=== PATIENT | male | born 1960 | race African-American/Black ===

== ENCOUNTER 2017-12-05 12:07 | Emergency (ER) | payer OTHER | END 2017-12-05 14:37 | disposition home or self-care (01) | LOC: ER 14:37 | DX: H61.23 Impacted cerumen, bilateral (principal); H66.93 Otitis media, unspecified, bilateral | CPT/HCPCS: 99283 ==

== ENCOUNTER 2020-12-20 10:33 | Inpatient (IN) | payer OTHER ==
[~2020-12-20] VITALS: Ht 182.9 cm; Wt 101.6 kg
[~2020-12-20 10:33] MED LIST: AMOX875T PO; TRAM-48 PO
[2020-12-20] MEDS ORDERED: IV NORMAL SALINE 1000ML BAG 1,000 ML IV ONE ×3 (11:15→13:30)
[2020-12-20 11:22] LABS: BASO % 0 % (0-3); EOS % 0 % (0-3); HEMATOCRIT 40.3 % (39.0-53.0); HEMOGLOBIN 12.9 g/dL (13.0-17.5); LYMPH # 0.3 x10^3/uL (1.0-4.8); LYMPH % 2 % (24-48); MEAN CORPUSCULAR HEMOGLOBIN 28 pg (25-35); MEAN CORPUSCULAR HGB CONC 32 g/dL (31-37); MEAN CORPUSCULAR VOLUME 86 fL (79-100); MONO # 0.2 x10^3/uL (0.0-1.1); MONO % 2 % (0-9); NEUT # 11.6 x10^3/uL (1.8-7.7); NEUT % 96 % (31-73); PLATELET COUNT 220 x10^3/uL (140-400); RED BLOOD COUNT 4.69 x10^6/uL (4.30-5.70); RED CELL DISTRIBUTION WIDTH 13.9 % (11.5-14.5); WHITE BLOOD COUNT 12.1 x10^3/uL (4.0-11.0)
--- NOTE | 2020-12-20 11:22 | PHYS DOC ---
Past Medical History Past Medical History: No Pertinent History Past Surgical History: No Surgical History Smoking Status: Never Smoker Alcohol Use: Rarely Drug Use: None General Adult EDM: Chief Complaint: ABDOMINAL PAIN HPI: HPI: Patient is a 60 year old male who presented to ER due to abdominal pain. Sym ptoms have been going on for a week, it got worse last night. Patient denies any fever. Patient said whenever he tries to urinate not much, now. Patient denies any cough or chest pain or any trouble breathing. Patient said he has no appetite, last time he tried to eat was yesterday. Review of Systems: Review of Systems: Constitutional: Denies fever or chills. [] Eyes: Denies change in visual acuity. [] HENT: Denies nasal congestion or sore throat. [] Respiratory: Denies cough or shortness of breath. [] Cardiovascular: Denies chest pain or edema. [] GI: Positive for abdominal pain, no nausea vomiting, no diarrhea. : Positive for dysuria and frequency, Musculoskeletal: Denies back pain or joint pain. [] Integument: Denies rash. [] Neurologic: Denies headache, focal weakness or sensory changes. [] Endocrine: Denies polyuria or polydipsia. [] Lymphatic: Denies swollen glands. [] Psychiatric: Denies depression or anxiety. [] Heart Score: Risk Factors: Risk Factors: DM, Current or recent (<one month) smoker, HTN, HLP, family histo ry of CAD, obesity. Risk Scores: Score 0 - 3: 2.5% MACE over next 6 weeks - Discharge Home Score 4 - 6: 20.3% MACE over next 6 weeks - Admit for Clinical Observation Score 7 - 10: 72.7% MACE over next 6 weeks - Early Invasive Strategies Current Medications: Current Medications Medications (Trade) Dose Ordered Sig/Papa Start Time Stop Time Status Last Admin Dose Admin Sodium Chloride 1,000 ml @ 1,000 mls/hr 1X ONCE 12/20/20 11:15 12/20/20 12:14 12/20/20 11:08 1,000 MLS/HR Allergies: Allergies: Allergies Coded Allergies Type Severity Reaction Last Updated Verified No Known Drug Allergies 12/05/17 No Physical Exam: PE: Constitutional: Well developed, well nourished, no acute distress, non-toxic appearance. [] HENT: Normocephalic, atraumatic, bilateral external ears normal, oropharynx michael [address], no oral exudates, nose normal. [] Eyes: PERRLA, EOMI, conjunctiva normal, no discharge. [] Neck: Normal range of motion, no tenderness, supple, no stridor. [] Cardiovascular:Heart rate regular rhythm, no murmur [] Lungs & Thorax: Bilateral breath sounds clear to auscultation [] Abdomen: Bowel sounds normal, soft, There is diffuse tenderness to palpation with guarding and rebound, no masses, no pulsatile masses. [] Skin: Warm, dry, no erythema, no rash. [] Back: No tenderness, no CVA tenderness. [] Extremities: No tenderness, no cyanosis, no clubbing, ROM intact, no edema. [] Neurologic: Alert and oriented X 3, normal motor function, normal sensory function, no focal deficits noted. [] Psychologic: Affect normal, judgement normal, mood normal. [] Current Patient Data: Labs: Laboratory Tests Test 12/20/20 10:40 12/20/20 10:46 White Blood Count 12.1 x10^3/uL Red Blood Count 4.69 x10^6/uL Hemoglobin 12.9 g/dL Hematocrit 40.3 % Mean Corpuscular Volume 86 fL Mean Corpuscular Hemoglobin 28 pg Mean Corpuscular Hemoglobin Concent 32 g/dL Red Cell Distribution Width 13.9 % Platelet Count 220 x10^3/uL Neutrophils (%) (Auto) 96 % Lymphocytes (%) (Auto) 2 % Monocytes (%) (Auto) 2 % Eosinophils (%) (Auto) 0 % Basophils (%) (Auto) 0 % Neutrophils # (Auto) 11.6 x10^3/uL Lymphocytes # (Auto) 0.3 x10^3/uL Monocytes # (Auto) 0.2 x10^3/uL Eosinophils # (Auto) 0.0 x10^3/uL Basophils # (Auto) 0.0 x10^3/uL Platelet Estimate Pending Sodium Level 139 mmol/L Potassium Level 3.6 mmol/L Chloride Level 102 mmol/L Carbon Dioxide Level 25 mmol/L Anion Gap 12 Blood Urea Nitrogen 12 mg/dL Creatinine 1.8 mg/dL Estimated GFR (Cockcroft-Gault) 47.0 BUN/Creatinine Ratio 7 Glucose Level 87 mg/dL Calcium Level 8.4 mg/dL Magnesium Level 1.5 mg/dL Total Bilirubin 1.6 mg/dL Aspartate Amino Transf (AST/SGOT) 30 U/L Alanine Aminotransferase (ALT/SGPT) 20 U/L Alkaline Phosphatase 69 U/L Total Protein 5.6 g/dL Albumin 2.8 g/dL Albumin/Globulin Ratio 1.0 Lipase 83 U/L Lactic Acid Level 2.8 mmol/L Current Medications Medications (Trade) Dose Ordered Sig/Papa Route PRN Reason Start Time Stop Time Status Last Admin Dose Admin Sodium Chloride 1,000 ml @ 1,000 mls/hr 1X ONCE IV 12/20/20 11:15 12/20/20 12:14 12/20/20 11:08 Fentanyl Citrate (Fentanyl 2ml Vial) 50 mcg 1X ONCE IVP 12/20/20 12:00 12/20/20 12:01 DC Piperacillin Sod/ Tazobactam Sod 3.375 gm/Sodium Chloride 50 ml @ 100 mls/hr 1X ONCE IV 12/20/20 12:00 12/20/20 12:29 Magnesium Sulfate 50 ml @ 25 mls/hr 1X ONCE IV 12/20/20 12:00 12/20/20 13:59 Vital Signs: Vital Signs Date Time Temp Pulse Resp B/P (MAP) Pulse Ox O2 Delivery O2 Flow Rate FiO2 12/20/20 10:56 98.3 81 24 90/50 (63) 97 Room Air 98.3 EKG: EKG: [] Radiology/Procedures: Radiology/Procedures: [facility] [address] [place] [address] IMAGING REPORT Signed PATIENT: VILMA PALMER ACCOUNT: [id number] : 1960 LOCATION: ER AGE: 60 SEX: M EXAM STATUS: REG ER ORD. PHYSICIAN: MILE FROST DO REASON: LOWER ABDOMINAL PAIN PROCEDURE: CT ABDOMEN PELVIS WO CONTRAST Exam: CT abdomen/pelvis without intravenous contrast Indication: Lower abdominal pain Comparison: None Technique: Helical CT imaging performed of the abdomen and pelvis without the use of intravenous contrast. Sagittal and coronal reformats were obtained. One or more of the following individualized dose reduction techniques were utilized for this examination: 1. Automated exposure control 2. Adjustment of the mA and/or kV according to patient size 3. Use of iterative reconstruction technique. Findings: Inherently limited evaluation without intravenous contrast. Lower chest: Lung bases are clear. The heart is normal in size. Liver: Normal. Gallbladder/Biliary Tree: Normal. Pancreas: Normal. Spleen: Normal. Adrenal Glands: Normal. Kidneys/Ureters/Bladder: Kidneys and this is portion ureters are normal. Distal right ureter is obscured. Bladder is normal. Reproductive Organs: Prostate gland is enlarged. Stomach, small bowel, and colon: There is a elongated masslike structure in the right lower quadrant extending into the pelvis, measuring at least 6.7 x 4.3 x 5.3 cm. There is extrinsic the cecum is in the expected location of the appendix, which is not discretely visualized. The masslike structure has soft tissue density and surrounding fat stranding. At the distal aspect of the structure there is a lower density collection measuring 3.9 x 1.6 cm that may be fluid collection between a small vesicles and rectum. Wall thickening in the sigmoid colon and rectum is likely reactive. The rest of the colon is normal. Small bowel is normal. Stomach is unremarkable. Vasculature: Abdominal aorta is normal in caliber. Mild calcified atherosclerosis. Lymph Nodes: There are enlarged ileocolic lymph nodes measuring up to 1 cm short axis. Enlarged right external iliac chain lymph nodes measuring up to 9 mm short axis. Peritoneum and retroperitoneum: No free air. Bones: There is moderate to severe disc space narrowing at L5-S1. Severe right and moderate left hip osteoarthrosis. Impression: Elongated masslike structure in the right lower quadrant with surrounding fat stranding suspicious for ruptured appendicitis with phlegmon or complex abscess. Differential diagnosis would be an appendiceal mass. There is an adjacent 4 cm lower density collection between the seminal vesicles and rectum that may be continuous with this or a separate fluid collection. CT with IV and oral contrast may be useful to further evaluate if clinically indicated. Results discussed by Dr. Jarrett with Dr. Frost at 1:00 PM on 12/20/2020. Electronically signed by: Viki Jarrett MD (12/20/2020 1:26 PM) [id number] DICTATED and SIGNED BY: VIKI JARRETT MD DATE: 12/20/20 [id number] 0 Course & Med Decision Making: Course & Med Decision Making Pertinent Labs and Imaging studies reviewed. (See chart for details) Patient is a 60-year-old male who was evaluated in the ER due to 1 week history of lower abdominal pain, his lab work, CT scan his abdomen pelvic consistent with perforated acute appendicitis patient was given IV fluid in the ER and IV antibiotics. Discussed with the general surgeon on-call Dr. 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 Departure Departure Impression: Primary Impression: Perforated appendicitis Additional Impression: Hypomagnesemia Disposition: ADMITTED INPT THIS HOSP Admitting Physician: PARESH () Condition: STABLE Referrals: NO PCP (PCP) MILE FROST DO Dec 20, 2020 11:22
[2020-12-20 11:37] LABS: CALCIUM 8.4 mg/dL (8.5-10.1); CREATININE 1.8 mg/dL (0.7-1.3); POTASSIUM 3.6 mmol/L (3.5-5.1)
[2020-12-20 11:51] LABS: ALBUMIN 2.8 g/dL (3.4-5.0); MAGNESIUM 1.5 mg/dL (1.8-2.4); TOTAL BILIRUBIN 1.6 mg/dL (0.2-1.0); TOTAL PROTEIN 5.6 g/dL (6.4-8.2)
[2020-12-20] MEDS ORDERED: MAGNESIUM SULFATE 2GM 50 ML IV ONE (12:00)
[2020-12-20] MEDS ORDERED: PIPERACILLIN/TAZOBACTAM 3.375 GM in IV NORMAL SALINE 50ML 50 ML IV ONE (12:00)
[2020-12-20] MEDS ORDERED: fentaNYL PF VIAL 100 MCG/2 ML VIAL IVP ONE ×2 (12:00→13:45)
[2020-12-20 12:16] LABS: BILIRUBIN,URINE NEGATIVE (NEG); CLARITY,URINE CLEAR; COLOR,URINE YELLOW; NITRITE,URINE NEGATIVE (NEG); PH,URINE 8.5 (<5.0-8.0); PROTEIN,URINE NEGATIVE (NEG-TRACE)
[2020-12-20 12:23] LABS: % BANDS 15 % (0-9); % LYMPHS 5 % (24-48); % SEGS 80 % (35-66); PLT ESTIMATE ADEQUATE (ADEQUATE)
[2020-12-20 12:28] LABS: BACTERIA,URINE FEW /HPF (0-FEW); RBC,URINE OCC /HPF (0-2)
[2020-12-20] MEDS ORDERED: fentaNYL PF VIAL 100 MCG/2 ML VIAL IV PRN (13:15)
[2020-12-20] MEDS ORDERED: ONDANSETRON PF 4 MG/2 ML VIAL. IV PRN ×2 (13:15→13:45)
[2020-12-20] MEDS: IV NORMAL SALINE 1000ML BAG 1,000 ML IV SCH ×2 (13:15→23:23)
--- NOTE | 2020-12-20 13:28 | RAD ---
Exam: CT abdomen/pelvis without intravenous contrast Indication: Lower abdominal pain Comparison: None Technique: Helical CT imaging performed of the abdomen and pelvis without the use of intravenous cont rast. Sagittal and coronal reformats were obtained. One or more of the following individualized dose reduction techniques were utilized for this examinat ion: 1. Automated exposure control 2. Adjustment of the mA and/or kV according to patient size 3. Use of iterative reconstruction technique. Findings: Inherently limited evaluation without intravenous contrast. Lower chest: Lung bases are clear. The heart is normal in size. Liver: Normal. Gallbladder/Biliary Tree: Normal. Pancreas: Normal. Spleen: Normal. Adrenal Glands: Normal. Kidneys/Ureters/Bladder: Kidneys and this is portion ureters are normal. Distal right ureter is obscu red. Bladder is normal. Reproductive Organs: Prostate gland is enlarged. Stomach, small bowel, and colon: There is a elongated masslike structure in the right lower quadrant extending into the pelvis, measuring at least 6.7 x 4.3 x 5.3 cm. There is extrinsic the cecum is in the expected location of the appendix, which is not discretely visualized. The masslike structure has soft tissue density and surrounding fat stranding. At the distal aspect of the structure there is a lower density collection measuring 3.9 x 1.6 cm that may be fluid collection between a small vesicles and rectum. Wall thickening in the sigmoid colon and rectum is likely reactive. The rest of the colo n is normal. Small bowel is normal. Stomach is unremarkable. Vasculature: Abdominal aorta is normal in caliber. Mild calcified atherosclerosis. Lymph Nodes: There are enlarged ileocolic lymph nodes measuring up to 1 cm short axis. Enlarged right external iliac chain lymph nodes measuring up to 9 mm short axis. Peritoneum and retroperitoneum: No free air. Bones: There is moderate to severe disc space narrowing at L5-S1. Severe right and moderate left hip osteoarthrosis. Impression: Elongated masslike structure in the right lower quadrant with surrounding fat stranding suspicious fo r ruptured appendicitis with phlegmon or complex abscess. Differential diagnosis would be an appendic eal mass. There is an adjacent 4 cm lower density collection between the seminal vesicles and rectum that may be continuous with this or a separate fluid collection. CT with IV and oral contrast may be useful to further evaluate if clinically indicated. Results discussed by Dr. Jarrett with Dr. Jain at 1:00 PM on 12/20/2020. Electronically signed by: Viki Jarrett MD (12/20/2020 1:26 PM) [id number]
[2020-12-20] MEDS ORDERED: BISACODYL 10 MG SUPP.RECT. PR PRN (13:45)
[2020-12-20] MEDS ORDERED: PIP/TAZO PER PHARMACY MC PRN (13:45)
--- NOTE | 2020-12-20 13:50 | PDOC1 ---
History and Physical Date of Admission Date of Admission DATE: 12/20/20 TIME: 13:45 Identification/Chief Complaint Chief Complaint Abdominal pain Source Source: Patient History of Present Illness History of Present Illness Mr Rosales is a 60 year old male w/ PMHx HLD and recent elevated PSA of 13 who presented to ER due to intractable abdominal pain for the past 24 hours. He and his brother, maria, note that his symptoms have been going on for a week intermittently and 5 days ago he felt his pain suddenly improve and then intermittently with cramping pain with eating for the past 3 days prior to presentation, but on 12/19/2020 it got significantly worse overnight and became constant, sharp in his RLQ with associated chills without fever. He is thirsty but has not been able to eat or drink without nausea, now has no appetite. He notes his urine output has dropped the last few days, but thought it was his prostate as a few months ago he had his PSA elevated. Patient denies any cough or chest pain or any trouble breathing. In ED noted to be tachycardic 100 bpm and febrile to 100.[address] abdomen/pelvis elongated masslike structure in the right lower quadrant with surrounding fat stranding suspicious for ruptured appendicitis with phlegmon or complex abscess. WBC 12.1, Hb 12.9, platelets 220, Na 139, K 3.6, BUN 12, Cr 1.8, glucose 87, Mg 1.5, lactic acid 2.8, Bilirubin 1.6, Albumin 2.8. Admitted for further care. Past Medical History Cardiovascular: Hyperlipidemia Renal/: Other (PSA 13) Past Surgical History Past Surgical History: No pertinent history Family History Family History: High Cholestrol Social History Smoke: No ALCOHOL: rare Drugs: None Current Problem List Problem List Problems Medical Problems: (1) Hypomagnesemia Status: Acute (2) Perforated appendicitis Status: Acute Current Medications Current Medications Current Medications Sodium Chloride 1,000 ml @ 1,000 mls/hr 1X ONCE IV Last administered on 12/20/20at 11:08; Start 12/20/20 at 11:15; Stop 12/20/20 at 12:14; Status DC Fentanyl Citrate (Fentanyl 2ml Vial) 50 mcg 1X ONCE IVP Last administered on 12/20/20at 12:31; Start 12/20/20 at 12:00; Stop 12/20/20 at 12:01; Status DC Piperacillin Sod/ Tazobactam Sod 3.375 gm/Sodium Chloride 50 ml @ 100 mls/hr 1X ONCE IV Last administered on 12/20/20at 12:15; Start 12/20/20 at 12:00; Stop 12/20/20 at 12:29; Status DC Magnesium Sulfate 50 ml @ 25 mls/hr 1X ONCE IV Last administered on 12/20/20at 12:16; Start 12/20/20 at 12:00; Stop 12/20/20 at 13:59 Sodium Chloride 1,000 ml @ 1,000 mls/hr 1X ONCE IV Last administered on 12/20/20at 13:16; Start 12/20/20 at 13:15; Stop 12/20/20 at 14:14 Fentanyl Citrate (Fentanyl 2ml Vial) 75 mcg 1X ONCE IVP Last administered on 12/20/20at 13:26; Start 12/20/20 at 13:45; Stop 12/20/20 at 13:46 Ondansetron HCl (Zofran) 4 mg PRN Q8HRS PRN IV NAUSEA/VOMITING; Start 12/20/20 at 13:15; Stop 12/21/20 at 13:14 Fentanyl Citrate (Fentanyl 2ml Vial) 50 mcg PRN Q1HR PRN IV PAIN; Start 12/20/20 at 13:15; Stop 12/21/20 at 13:14 Sodium Chloride 1,000 ml @ 100 mls/hr Q10H IV Last administered on 12/20/20at 13:15; Start 12/20/20 at 13:15; Stop 12/21/20 at 13:14 Sodium Chloride 1,000 ml @ 1,000 mls/hr 1X ONCE IV ; Start 12/20/20 at 13:30; Stop 12/20/20 at 14:29 Piperacillin Sod/ Tazobactam Sod (Zosyn Per Pharmacy) 1 each PRN DAILY PRN MC SEE COMMENTS; Start 12/20/20 at 13:45; Status UNV Active Scripts Active Ultram (Tramadol Hcl) 50 Mg Tablet 1 Tab PO Q6HRS Amoxicillin 875 Mg Tablet 1 Tab PO BID Allergies Allergies: Coded Allergies: No Known Drug Allergies (Unverified , 12/05/17) ROS Review of System 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 [facility] General: YES: Chills, Night Sweats, Fatigue, Malaise, Appetite; No: Other PSYCHOLOGICAL ROS: No: Anxiety, Behavioral Disorder, Concentration difficultie, Decreased libido, Depression, Disorientation, Hallucinations, Hostility, Irritablity, Memory difficulties, Mood Swings, Obsessive thoughts, Physical abuse, Sexual abuse, Sleep disturbances, Suicidal ideation, Other Eyes: No Blurry vision, No Decreased vision, No Double vision, No Dry eyes, No Excessive tearing, No Eye Pain, No Itchy Eyes, No Loss of vision, No Photophobia, No Scotomata, No Uses contacts, No Uses glasses, No Other HEENT: No: Heacaches, Visual Changes, Hearing change, Nasal congestion, Nasal discharge, Oral lesions, Sinus pain, Sore Throat, Epistaxis, Sneezing, Snoring, Tinnitus, Vertigo, Vocal changes, Other ALLERGY AND IMMUNOLOGY: No: Hives, Insect Bite Sensitivity, Itchy/Watery Eyes, Nasal Congestion, Post Nasal Drip, Seasonal Allergies, Other Hematological and Lymphatic: No: Bleeding Problems, Blood Clots, Blood Tra nsfusions, Brusing, Night Sweats, Pallor, Swollen Lymph Nodes, Other ENDOCRINE: No: Breast Changes, Galactorrhea, Hair Pattern Changes, Hot Flashes, Malaise/lethargy, Mood Swings, Palpitations, Polydipsia/polyuria, Skin Changes, Temperature Intolerance, Unexpected Weight Changes, Other Breast: No New/Changing Breast Lumps, No Nipple changes, No Nipple discharge, No Other Respiratory: No: Cough, Hemoptysis, Orthopnea, Pleuritic Pain, Shortness of breath, SOB with excertion, Sputum Changes, Stridor, Tachypnea, Wheezing, Other Cardiovascular: No Chest Pain, No Palpitations, No Orthopnea, No Paroxysmal Noc. Dyspnea, No Edema, No Lt Headedness, No Other Gastrointestinal: Yes Nausea, Yes Vomiting, Yes Abdominal Pain; No Diarrhea, No Constipation, No Melena, No Hematochezia, No Other Genitourinary: No Dysuria, No Frequency, No Incontinence, No Hematuria, No Retention, No Discharge, No Urgency, No Pain, No Flank Pain, No Other, No , No , No , No , No , No , No Musculoskeletal: No Gait Disturbance, No Joint Pain, No Joint Stiffness, No Joint Swelling, No Muscle Pain, No Muscular Weakness, No Pain In:, No Swelling In:, No Other Neurological: No Behavorial Changes, No Bowel/Bladder ControlChng, No Confusion, No Dizziness, No Gait Disturbance, No Headaches, No Impaired Coord/balance, No Memory Loss, No Numbness/Tingling, No Seizures, No Speech Problems, No Tremors, No Visual Changes, No Weakness, No Other Skin: No Dry Skin, No Eczema, No Hair Changes, No Lumps, No Mole Changes, No Mottling, No Nail Changes, No Pruritus, No Rash, No Skin Lesion Changes, No Other, No Acne Physical Exam General: Alert, Oriented X3, Cooperative, severe distress HEENT: Atraumatic, PERRLA, EOMI, Mucous membr. moist/pink Lungs: Clear to auscultation, Normal air movement Heart: S1S2, RRR, no thrills, no rubs, no gallops, no murmurs Abdomen: Normal bowel sounds, No hepatosplenomegaly, No masses, Other (Diffusely tender) Male Genitals Exam: normal genitalia, high riding prostate Rectal Exam: other (Enlarged prostate) Extremities: No clubbing, No cyanosis, No edema, Normal pulses, No tenderness/swelling Skin: No rashes, No breakdown, No significant lesion Neuro: Normal gait, Normal speech, Strength at 5/5 X4 ext, Normal tone, Sensation intact, Cranial nerves 3-12 NL, Reflexes 2+ Psych/Mental Status: Mental status NL, Mood NL Vitals Vitals Vital Signs Date Time Temp Pulse Resp B/P (MAP) Pulse Ox O2 Delivery O2 Flow Rate FiO2 12/20/20 12:28 89 108/64 (79) 95 Room Air 12/20/20 10:56 98.3 24 98.3 Labs Labs Laboratory Tests Test 12/20/20 10:40 12/20/20 10:46 12/20/20 12:05 12/20/20 13:05 White Blood Count 12.1 x10^3/uL (4.0-11.0) Red Blood Count 4.69 x10^6/uL (4.30-5.70) Hemoglobin 12.9 g/dL (13.0-17.5) Hematocrit 40.3 % (39.0-53.0) Mean Corpuscular Volume 86 fL (79-100) Mean Corpuscular Hemoglobin 28 pg (25-35) Mean Corpuscular Hemoglobin Concent 32 g/dL (31-37) Red Cell Distribution Width 13.9 % (11.5-14.5) Platelet Count 220 x10^3/uL (140-400) Neutrophils (%) (Auto) 96 % (31-73) Lymphocytes (%) (Auto) 2 % (24-48) Monocytes (%) (Auto) 2 % (0-9) Eosinophils (%) (Auto) 0 % (0-3) Basophils (%) (Auto) 0 % (0-3) Neutrophils # (Auto) 11.6 x10^3/uL (1.8-7.7) Lymphocytes # (Auto) 0.3 x10^3/uL (1.0-4.8) Monocytes # (Auto) 0.2 x10^3/uL (0.0-1.1) Eosinophils # (Auto) 0.0 x10^3/uL (0.0-0.7) Basophils # (Auto) 0.0 x10^3/uL (0.0-0.2) Segmented Neutrophils % 80 % (35-66) Band Neutrophils % 15 % (0-9) Lymphocytes % 5 % (24-48) Platelet Estimate Adequate (ADEQUATE) Giant Platelets Occ Sodium Level 139 mmol/L (136-145) Potassium Level 3.6 mmol/L (3.5-5.1) Chloride Level 102 mmol/L (98-107) Carbon Dioxide Level 25 mmol/L (21-32) Anion Gap 12 (6-14) Blood Urea Nitrogen 12 mg/dL (8-26) Creatinine 1.8 mg/dL (0.7-1.3) Estimated GFR (Cockcroft-Gault) 47.0 BUN/Creatinine Ratio 7 (6-20) Glucose Level 87 mg/dL (70-99) Calcium Level 8.4 mg/dL (8.5-10.1) Magnesium Level 1.5 mg/dL (1.8-2.4) Total Bilirubin 1.6 mg/dL (0.2-1.0) Aspartate Amino Transf (AST/SGOT) 30 U/L (15-37) Alanine Aminotransferase (ALT/SGPT) 20 U/L (16-63) Alkaline Phosphatase 69 U/L (46-116) Total Protein 5.6 g/dL (6.4-8.2) Albumin 2.8 g/dL (3.4-5.0) Albumin/Globulin Ratio 1.0 (1.0-1.7) Lipase 83 U/L (73-393) Lactic Acid Level 2.8 mmol/L (0.4-2.0) Urine Collection Type Unknown Urine Color Yellow Urine Clarity Clear Urine pH 8.5 (<5.0-8.0) Urine Specific [place] 1.015 (1.000-1.030) Urine Protein Negative mg/dL (NEG-TRACE) Urine Glucose (UA) Negative mg/dL (NEG) Urine Ketones (Stick) Trace mg/dL (NEG) Urine Blood Negative (NEG) Urine Nitrite Negative (NEG) Urine Bilirubin Negative (NEG) Urine Urobilinogen Dipstick 1.0 mg/dL (0.2 mg/dL) Urine Leukocyte Esterase Negative (NEG) Urine RBC Occ /HPF (0-2) Urine WBC 1-4 /HPF (0-4) Urine Squamous Epithelial Cells Occ /LPF Urine Bacteria Few /HPF (0-FEW) Urine Mucus Slight /LPF SARS-CoV-2 Antigen (Rapid) Negative (NEGATIVE) Laboratory Tests Test 12/20/20 10:40 12/20/20 10:46 12/20/20 12:05 12/20/20 13:05 White Blood Count 12.1 x10^3/uL (4.0-11.0) Red Blood Count 4.69 x10^6/uL (4.30-5.70) Hemoglobin 12.9 g/dL (13.0-17.5) Hematocrit 40.3 % (39.0-53.0) Mean Corpuscular Volume 86 fL (79-100) Mean Corpuscular Hemoglobin 28 pg (25-35) Mean Corpuscular Hemoglobin Concent 32 g/dL (31-37) Red Cell Distribution Width 13.9 % (11.5-14.5) Platelet Count 220 x10^3/uL (140-400) Neutrophils (%) (Auto) 96 % (31-73) Lymphocytes (%) (Auto) 2 % (24-48) Monocytes (%) (Auto) 2 % (0-9) Eosinophils (%) (Auto) 0 % (0-3) Basophils (%) (Auto) 0 % (0-3) Neutrophils # (Auto) 11.6 x10^3/uL (1.8-7.7) Lymphocytes # (Auto) 0.3 x10^3/uL (1.0-4.8) Monocytes # (Auto) 0.2 x10^3/uL (0.0-1.1) Eosinophils # (Auto) 0.0 x10^3/uL (0.0-0.7) Basophils # (Auto) 0.0 x10^3/uL (0.0-0.2) Segmented Neutrophils % 80 % (35-66) Band Neutrophils % 15 % (0-9) Lymphocytes % 5 % (24-48) Platelet Estimate Adequate (ADEQUATE) Giant Platelets Occ Sodium Level 139 mmol/L (136-145) Potassium Level 3.6 mmol/L (3.5-5.1) Chloride Level 102 mmol/L (98-107) Carbon Dioxide Level 25 mmol/L (21-32) Anion Gap 12 (6-14) Blood Urea Nitrogen 12 mg/dL (8-26) Creatinine 1.8 mg/dL (0.7-1.3) Estimated GFR (Cockcroft-Gault) 47.0 BUN/Creatinine Ratio 7 (6-20) Glucose Level 87 mg/dL (70-99) Calcium Level 8.4 mg/dL (8.5-10.1) Magnesium Level 1.5 mg/dL (1.8-2.4) Total Bilirubin 1.6 mg/dL (0.2-1.0) Aspartate Amino Transf (AST/SGOT) 30 U/L (15-37) Alanine Aminotransferase (ALT/SGPT) 20 U/L (16-63) Alkaline Phosphatase 69 U/L (46-116) Total Protein 5.6 g/dL (6.4-8.2) Albumin 2.8 g/dL (3.4-5.0) Albumin/Globulin Ratio 1.0 (1.0-1.7) Lipase 83 U/L (73-393) Lactic Acid Level 2.8 mmol/L (0.4-2.0) Urine Collection Type Unknown Urine Color Yellow Urine Clarity Clear Urine pH 8.5 (<5.0-8.0) Urine Specific [place] 1.015 (1.000-1.030) Urine Protein Negative mg/dL (NEG-TRACE) Urine Glucose (UA) Negative mg/dL (NEG) Urine Ketones (Stick) Trace mg/dL (NEG) Urine Blood Negative (NEG) Urine Nitrite Negative (NEG) Urine Bilirubin Negative (NEG) Urine Urobilinogen Dipstick 1.0 mg/dL (0.2 mg/dL) Urine Leukocyte Esterase Negative (NEG) Urine RBC Occ /HPF (0-2) Urine WBC 1-4 /HPF (0-4) Urine Squamous Epithelial Cells Occ /LPF Urine Bacteria Few /HPF (0-FEW) Urine Mucus Slight /LPF SARS-CoV-2 Antigen (Rapid) Negative (NEGATIVE) Images Images CT Abdomen/pelvis wo contrast: Inherently limited evaluation without intravenous contrast. Lower chest: Lung bases are clear. The heart is normal in size. Liver: Normal. Gallbladder/Biliary Tree: Normal. Pancreas: Normal. Spleen: Normal. Adrenal Glands: Normal. Kidneys/Ureters/Bladder: Kidneys and this is portion ureters are normal. Distal right ureter is obscured. Bladder is normal. Reproductive Organs: Prostate gland is enlarged. Stomach, small bowel, and colon: There is a elongated masslike structure in the right lower quadrant extending into the pelvis, measuring at least 6.7 x 4.3 x 5.3 cm. There is extrinsic the cecum is in the expected location of the appendix, which is not discretely visualized. The masslike structure has soft tissue density and surrounding fat stranding. At the distal aspect of the structure there is a lower density collection measuring 3.9 x 1.6 cm that may be fluid collection between a small vesicles and rectum. Wall thickening in the si gmoid colon and rectum is likely reactive. The rest of the colon is normal. Small bowel is normal. Stomach is unremarkable. Vasculature: Abdominal aorta is normal in caliber. Mild calcified atherosclerosis. Lymph Nodes: There are enlarged ileocolic lymph nodes measuring up to 1 cm short axis. Enlarged right external iliac chain lymph nodes measuring up to 9 mm short axis. Peritoneum and retroperitoneum: No free air. Bones: There is moderate to severe disc space narrowing at L5-S1. Severe right and moderate left hip osteoarthrosis. Impression: Elongated masslike structure in the right lower quadrant with surrounding fat stranding suspicious for ruptured appendicitis with phlegmon or complex abscess. Differential diagnosis would be an appendiceal mass. There is an adjacent 4 cm lower density collection between the seminal vesicles and rectum that may be continuous with this or a separate fluid collection. CT with IV and oral contrast may be useful to further evaluate if clinically indicated. VTE Prophylaxis Ordered VTE Prophylaxis Devices: No VTE Pharmacological Prophylaxi: Yes Assessment/Plan Assessment/Plan A/P: Perforated appendicitis - abscess presence unclear, will f/u renal function to obtain CT with contrast vs US. NPO, IV pain control. Zosyn q6hrs. Surgery consulted Intractable abdominal pain - due to above, IV morphine, prn IV fentanyl Sepsis - due to perforated diverticulitis - given empiric IVF and zosyn ALYSIA - likely vasomotor nephropathy given poor PO intake, will give IVF resuscitation, f/u renal function on labs Pelvic fluid collection - between seminal vesicles and rectum, possibly abscess, will repeat labs and try CT with contrast if renal function improves Elevated PSA - noted outpatient Bilateral hip osteoarthrosis - noted on CT Hypomagnesemia - Replace IV Elevated bilirubin - will monitor Moderate protein calorie malnutrition - will start on IV nutrition FEN - NPO, NSS, procalamine PPX - heparin FULL CODE Dispo - inpatient for above, negative rapid covid19, given perforation likely would recommend bowel rest and IV antibiotics prior to planning any surgical intervention, will defer to surgery for further medical decision making Justifications for Admission Other Justification NEEMA LARSON MD Dec 20, 2020 13:50
--- NOTE | 2020-12-20 14:23 | PDOC2 ---
CONSULT Date of Consult Date of Consult DATE: 12/20/20 TIME: 14:20 History of Present Illness Reason for Visit: The patient is a 60 year old male who reported to the ER with abdominal pain. He first noticed some problems about a week ago with pain in the low mid abdomen. He states that improved, but then last night he developed severe pain. The pain is across the low abdomen with associated nausea. He reports dysuria as well. Past Medical History Past Medical History high cholesterol Past Surgical History Past Surgical History denies Social History No ALCOHOL: none Drugs: None Current Problem List Problem List Problems Medical Problems: (1) Hypomagnesemia Status: Acute (2) Perforated appendicitis Status: Acute Current Medications Current Medications Current Medications Sodium Chloride 1,000 ml @ 1,000 mls/hr 1X ONCE IV Last administered on 12/20/20at 11:08; Start 12/20/20 at 11:15; Stop 12/20/20 at 12:14; Status DC Fentanyl Citrate (Fentanyl 2ml Vial) 50 mcg 1X ONCE IVP Last administered on 12/20/20at 12:31; Start 12/20/20 at 12:00; Stop 12/20/20 at 12:01; Status DC Piperacillin Sod/ Tazobactam Sod 3.375 gm/Sodium Chloride 50 ml @ 100 mls/hr 1X ONCE IV Last administered on 12/20/20at 12:15; Start 12/20/20 at 12:00; Stop 12/20/20 at 12:29; Status DC Magnesium Sulfate 50 ml @ 25 mls/hr 1X ONCE IV Last administered on 12/20/20at 12:16; Start 12/20/20 at 12:00; Stop 12/20/20 at 13:59; Status DC Sodium Chloride 1,000 ml @ 1,000 mls/hr 1X ONCE IV Last administered on 12/20/20at 13:16; Start 12/20/20 at 13:15; Stop 12/20/20 at 14:14; Status DC Fentanyl Citrate (Fentanyl 2ml Vial) 75 mcg 1X ONCE IVP Last administered on 12/20/20at 13:26; Start 12/20/20 at 13:45; Stop 12/20/20 at 13:46; Status DC Ondansetron HCl (Zofran) 4 mg PRN Q8HRS PRN IV NAUSEA/VOMITING; Start 12/20/20 at 13:15; Stop 12/20/20 at 13:46; Status DC Fentanyl Citrate (Fentanyl 2ml Vial) 50 mcg PRN Q1HR PRN IV PAIN; Start 12/20/20 at 13:15; Stop 12/21/20 at 13:14 Sodium Chloride 1,000 ml @ 100 mls/hr Q10H IV Last administered on 12/20/20at 13:15; Start 12/20/20 at 13:15; Stop 12/21/20 at 13:14 Sodium Chloride 1,000 ml @ 1,000 mls/hr 1X ONCE IV Last administered on 12/20/20at 13:30; Start 12/20/20 at 13:30; Stop 12/20/20 at 14:29 Piperacillin Sod/ Tazobactam Sod (Zosyn Per Pharmacy) 1 each PRN DAILY PRN MC SEE COMMENTS; Start 12/20/20 at 13:45 Ondansetron HCl (Zofran) 4 mg PRN Q4HRS PRN IV NAUSEA/VOMITING; Start 12/20/20 at 13:45 Acetaminophen (Tylenol Supp) 650 mg PRN Q4HRS PRN AR TEMP OVER 100.4F OR MILD PAIN; Start 12/20/20 at 13:45 Olanzapine (ZyPREXA ZYDIS) 5 mg PRN BID PRN PO ANXIETY / AGITATION; Start 12/20/20 at 13:45 Bisacodyl (Dulcolax Supp) 10 mg PRN DAILY PRN AR CONSTIPATION; Start 12/20/20 at 13:45 Heparin Sodium (Porcine) (Heparin Sodium) 5,000 unit BID ONCE SQ ; Start 12/20/20 at 21:00; Stop 12/20/20 at 21:01 Morphine Sulfate (Morphine Sulfate) 4 mg PRN Q3HRS PRN IV SEVERE PAIN 7-10; Start 12/20/20 at 13:45 Piperacillin Sod/ Tazobactam Sod 3.375 gm/Sodium Chloride 50 ml @ 100 mls/hr Q6HRS IV ; Start 12/20/20 at 18:00 Active Scripts Active Ultram (Tramadol Hcl) 50 Mg Tablet 1 Tab PO Q6HRS Amoxicillin 875 Mg Tablet 1 Tab PO BID Allergies Allergies: Coded Allergies: No Known Drug Allergies (Unverified , 12/05/17) ROS General: No: Chills, Night Sweats, Fatigue, Malaise, Appetite, Other PSYCHOLOGICAL ROS: No: Anxiety, Behavioral Disorder, Concentration difficultie, Decreased libido, Depression, Disorientation, Hallucinations, Hostility, Irritablity, Memory difficulties, Mood Swings, Obsessive thoughts, Physical abuse, Sexual abuse, Sleep disturbances, Suicidal ideation, Other Eyes: No Blurry vision, No Decreased vision, No Double vision, No Dry eyes, No Excessive tearing, No Eye Pain, No Itchy Eyes, No Loss of vision, No Photophobia, No Scotomata, No Uses contacts, No Uses glasses, No Other HEENT: No: Heacaches, Visual Changes, Hearing change, Nasal congestion, Nasal discharge, Oral lesions, Sinus pain, Sore Throat, Epistaxis, Sneezing, Snoring, Tinnitus, Vertigo, Vocal changes, Other ALLERGY AND IMMUNOLOGY: No: Hives, Insect Bite Sensitivity, Itchy/Watery Eyes, Nasal Congestion, Post Nasal Drip, Seasonal Allergies, Other Hematological and Lymphatic: No: Bleeding Problems, Blood Clots, Blood T ransfusions, Brusing, Night Sweats, Pallor, Swollen Lymph Nodes, Other ENDOCRINE: No: Breast Changes, Galactorrhea, Hair Pattern Changes, Hot Flashes, Malaise/lethargy, Mood Swings, Palpitations, Polydipsia/polyuria, Skin Changes, Temperature Intolerance, Unexpected Weight Changes, Other Breast: No New/Changing Breast Lumps, No Nipple changes, No Nipple discharge, No Other Respiratory: No: Cough, Hemoptysis, Orthopnea, Pleuritic Pain, Shortness of breath, SOB with excertion, Sputum Changes, Stridor, Tachypnea, Wheezing, Other Gastrointestinal: Yes Nausea, Yes Abdominal Pain Genitourinary: YES Dysuria Musculoskeletal: No Gait Disturbance, No Joint Pain, No Joint Stiffness, No Joint Swelling, No Muscle Pain, No Muscular Weakness, No Pain In:, No Swelling In:, No Other Neurological: No Behavorial Changes, No Bowel/Bladder ControlChng, No Co nfusion, No Dizziness, No Gait Disturbance, No Headaches, No Impaired Coord/balance, No Memory Loss, No Numbness/Tingling, No Seizures, No Speech Problems, No Tremors, No Visual Changes, No Weakness, No Other Skin: No Dry Skin, No Eczema, No Hair Changes, No Lumps, No Mole Changes, No Mottling, No Nail Changes, No Pruritus, No Rash, No Skin Lesion Changes, No Other, No Acne Physical Exam General: Alert, Oriented X3, mild distress HEENT: Atraumatic Lungs: Clear to auscultation Heart: Regular rate Abdomen: Soft (tender low abdomen with guarding) Extremities: No clubbing, No cyanosis Skin: No rashes, No breakdown Neuro: Normal speech MUSCULOSKELETAL: No joint tenderness, No deformity Vitals VITALS Vital Signs Date Time Temp Pulse Resp B/P (MAP) Pulse Ox O2 Delivery O2 Flow Rate FiO2 12/20/20 13:30 94 106/58 (74) 94 Nasal Cannula 2.0 12/20/20 10:56 98.3 24 98.3 Labs Labs Laboratory Tests Test 12/20/20 10:40 12/20/20 10:46 12/20/20 12:05 12/20/20 13:05 White Blood Count 12.1 x10^3/uL (4.0-11.0) Red Blood Count 4.69 x10^6/uL (4.30-5.70) Hemoglobin 12.9 g/dL (13.0-17.5) Hematocrit 40.3 % (39.0-53.0) Mean Corpuscular Volume 86 fL (79-100) Mean Corpuscular Hemoglobin 28 pg (25-35) Mean Corpuscular Hemoglobin Concent 32 g/dL (31-37) Red Cell Distribution Width 13.9 % (11.5-14.5) Platelet Count 220 x10^3/uL (140-400) Neutrophils (%) (Auto) 96 % (31-73) Lymphocytes (%) (Auto) 2 % (24-48) Monocytes (%) (Auto) 2 % (0-9) Eosinophils (%) (Auto) 0 % (0-3) Basophils (%) (Auto) 0 % (0-3) Neutrophils # (Auto) 11.6 x10^3/uL (1.8-7.7) Lymphocytes # (Auto) 0.3 x10^3/uL (1.0-4.8) Monocytes # (Auto) 0.2 x10^3/uL (0.0-1.1) Eosinophils # (Auto) 0.0 x10^3/uL (0.0-0.7) Basophils # (Auto) 0.0 x10^3/uL (0.0-0.2) Segmented Neutrophils % 80 % (35-66) Band Neutrophils % 15 % (0-9) Lymphocytes % 5 % (24-48) Platelet Estimate Adequate (ADEQUATE) Giant Platelets Occ Sodium Level 139 mmol/L (136-145) Potassium Level 3.6 mmol/L (3.5-5.1) Chloride Level 102 mmol/L (98-107) Carbon Dioxide Level 25 mmol/L (21-32) Anion Gap 12 (6-14) Blood Urea Nitrogen 12 mg/dL (8-26) Creatinine 1.8 mg/dL (0.7-1.3) Estimated GFR (Cockcroft-Gault) 47.0 BUN/Creatinine Ratio 7 (6-20) Glucose Level 87 mg/dL (70-99) Calcium Level 8.4 mg/dL (8.5-10.1) Magnesium Level 1.5 mg/dL (1.8-2.4) Total Bilirubin 1.6 mg/dL (0.2-1.0) Aspartate Amino Transf (AST/SGOT) 30 U/L (15-37) Alanine Aminotransferase (ALT/SGPT) 20 U/L (16-63) Alkaline Phosphatase 69 U/L (46-116) Total Protein 5.6 g/dL (6.4-8.2) Albumin 2.8 g/dL (3.4-5.0) Albumin/Globulin Ratio 1.0 (1.0-1.7) Lipase 83 U/L (73-393) Lactic Acid Level 2.8 mmol/L (0.4-2.0) Urine Collection Type Unknown Urine Color Yellow Urine Clarity Clear Urine pH 8.5 (<5.0-8.0) Urine Specific [place] 1.015 (1.000-1.030) Urine Protein Negative mg/dL (NEG-TRACE) Urine Glucose (UA) Negative mg/dL (NEG) Urine Ketones (Stick) Trace mg/dL (NEG) Urine Blood Negative (NEG) Urine Nitrite Negative (NEG) Urine Bilirubin Negative (NEG) Urine Urobilinogen Dipstick 1.0 mg/dL (0.2 mg/dL) Urine Leukocyte Esterase Negative (NEG) Urine RBC Occ /HPF (0-2) Urine WBC 1-4 /HPF (0-4) Urine Squamous Epithelial Cells Occ /LPF Urine Bacteria Few /HPF (0-FEW) Urine Mucus Slight /LPF SARS-CoV-2 Antigen (Rapid) Negative (NEGATIVE) Laboratory Tests Test 12/20/20 10:40 12/20/20 10:46 12/20/20 12:05 12/20/20 13:05 White Blood Count 12.1 x10^3/uL (4.0-11.0) Red Blood Count 4.69 x10^6/uL (4.30-5.70) Hemoglobin 12.9 g/dL (13.0-17.5) Hematocrit 40.3 % (39.0-53.0) Mean Corpuscular Volume 86 fL (79-100) Mean Corpuscular Hemoglobin 28 pg (25-35) Mean Corpuscular Hemoglobin Concent 32 g/dL (31-37) Red Cell Distribution Width 13.9 % (11.5-14.5) Platelet Count 220 x10^3/uL (140-400) Neutrophils (%) (Auto) 96 % (31-73) Lymphocytes (%) (Auto) 2 % (24-48) Monocytes (%) (Auto) 2 % (0-9) Eosinophils (%) (Auto) 0 % (0-3) Basophils (%) (Auto) 0 % (0-3) Neutrophils # (Auto) 11.6 x10^3/uL (1.8-7.7) Lymphocytes # (Auto) 0.3 x10^3/uL (1.0-4.8) Monocytes # (Auto) 0.2 x10^3/uL (0.0-1.1) Eosinophils # (Auto) 0.0 x10^3/uL (0.0-0.7) Basophils # (Auto) 0.0 x10^3/uL (0.0-0.2) Segmented Neutrophils % 80 % (35-66) Band Neutrophils % 15 % (0-9) Lymphocytes % 5 % (24-48) Platelet Estimate Adequate (ADEQUATE) Giant Platelets Occ Sodium Level 139 mmol/L (136-145) Potassium Level 3.6 mmol/L (3.5-5.1) Chloride Level 102 mmol/L (98-107) Carbon Dioxide Level 25 mmol/L (21-32) Anion Gap 12 (6-14) Blood Urea Nitrogen 12 mg/dL (8-26) Creatinine 1.8 mg/dL (0.7-1.3) Estimated GFR (Cockcroft-Gault) 47.0 BUN/Creatinine Ratio 7 (6-20) Glucose Level 87 mg/dL (70-99) Calcium Level 8.4 mg/dL (8.5-10.1) Magnesium Level 1.5 mg/dL (1.8-2.4) Total Bilirubin 1.6 mg/dL (0.2-1.0) Aspartate Amino Transf (AST/SGOT) 30 U/L (15-37) Alanine Aminotransferase (ALT/SGPT) 20 U/L (16-63) Alkaline Phosphatase 69 U/L (46-116) Total Protein 5.6 g/dL (6.4-8.2) Albumin 2.8 g/dL (3.4-5.0) Albumin/Globulin Ratio 1.0 (1.0-1.7) Lipase 83 U/L (73-393) Lactic Acid Level 2.8 mmol/L (0.4-2.0) Urine Collection Type Unknown Urine Color Yellow Urine Clarity Clear Urine pH 8.5 (<5.0-8.0) Urine Specific [place] 1.015 (1.000-1.030) Urine Protein Negative mg/dL (NEG-TRACE) Urine Glucose (UA) Negative mg/dL (NEG) Urine Ketones (Stick) Trace mg/dL (NEG) Urine Blood Negative (NEG) Urine Nitrite Negative (NEG) Urine Bilirubin Negative (NEG) Urine Urobilinogen Dipstick 1.0 mg/dL (0.2 mg/dL) Urine Leukocyte Esterase Negative (NEG) Urine RBC Occ /HPF (0-2) Urine WBC 1-4 /HPF (0-4) Urine Squamous Epithelial Cells Occ /LPF Urine Bacteria Few /HPF (0-FEW) Urine Mucus Slight /LPF SARS-CoV-2 Antigen (Rapid) Negative (NEGATIVE) Images Images CT abdomen: Impression: Elongated masslike structure in the right lower quadrant with surrounding fat stranding suspicious for ruptured appendicitis with phlegmon or complex abscess. Differential diagnosis would be an appendiceal mass. There is an adjacent 4 cm lower density collection between the seminal vesicles and rectum that may be continuous with this or a separate fluid collection. CT with IV and oral contrast may be useful to further evaluate if clinically indicated. Assessment/Plan Assessment/Plan 60 year old male with abdominal pain, CT shows inflammatory process near cecum, ?perforated appendicitis with phlegmon, non contrasted CT so unable to be certain. Recommend admission, hydration, pain control, IV abx, serial exams/labs, probable repeat CT in 48 hours with contrast. If worsens despite medical management surgery may become necessary. YOMAIRA CASTILLO MD Dec 20, 2020 14:23
[2020-12-20 14:40] VITALS: BP 94/44
[2020-12-20] MEDS: MORPHINE SULFATE 4 MG/ML VIAL. IV PRN ×3 (14:54→22:37)
[2020-12-20] MEDS: AMINO AC 3%/ELECTROLYTE/GLYCER 1,000 ML IV SCH ×2 (15:00→20:20)
[2020-12-20] MEDS ORDERED: ATOR40TA PO (15:37)
[2020-12-20] MEDS: PIPERACILLIN/TAZOBACTAM 3.375 GM in IV NORMAL SALINE 50ML 50 ML IV SCH ×2 (17:13→23:22)
[2020-12-20 19:00] VITALS: BP 96/56
[2020-12-20] MEDS: ACETAMINOPHEN 650 MG SUPP.RECT. PR PRN (20:00)
[2020-12-20] MEDS ORDERED: HEPARIN for SUB-Q USE 5,000 UNIT/ML VIAL. SQ ONE (21:00)
[2020-12-20 23:00] VITALS: BP 83/54
[2020-12-21] VITALS (12 sets, daily range): BP systolic 88–141; BP diastolic 54–93
[2020-12-21] MEDS: ACETAMINOPHEN 650 MG SUPP.RECT. PR PRN (02:20)
[2020-12-21] MEDS: MORPHINE SULFATE 4 MG/ML VIAL. IV PRN ×3 (02:21→14:34)
[2020-12-21 04:07] LABS: BASO % 0 % (0-3); EOS % 0 % (0-3); HEMATOCRIT 36.6 % (39.0-53.0); HEMOGLOBIN 12.1 g/dL (13.0-17.5); LYMPH # 0.5 x10^3/uL (1.0-4.8); LYMPH % 4 % (24-48); MEAN CORPUSCULAR HEMOGLOBIN 28 pg (25-35); MEAN CORPUSCULAR HGB CONC 33 g/dL (31-37); MEAN CORPUSCULAR VOLUME 86 fL (79-100); MONO # 0.5 x10^3/uL (0.0-1.1); MONO % 4 % (0-9); NEUT # 12.1 x10^3/uL (1.8-7.7); NEUT % 92 % (31-73); PLATELET COUNT 194 x10^3/uL (140-400); RED BLOOD COUNT 4.28 x10^6/uL (4.30-5.70); RED CELL DISTRIBUTION WIDTH 14.3 % (11.5-14.5); WHITE BLOOD COUNT 13.2 x10^3/uL (4.0-11.0)
[2020-12-21 04:31] LABS: ALBUMIN 2.2 g/dL (3.4-5.0); ALBUMIN/GLOBULIN RATIO 0.7 (1.0-1.7); CREATININE 1.8 mg/dL (0.7-1.3); POTASSIUM 3.3 mmol/L (3.5-5.1); TOTAL BILIRUBIN 1.7 mg/dL (0.2-1.0); TOTAL PROTEIN 5.5 g/dL (6.4-8.2)
[2020-12-21] MEDS: PIPERACILLIN/TAZOBACTAM 3.375 GM in IV NORMAL SALINE 50ML 50 ML IV SCH ×4 (05:33→23:54)
--- NOTE | 2020-12-21 09:58 | PDOC ---
PROGRESS NOTES Date of Service DATE: 12/21/20 TIME: 09:57 Subjective Subjective still severe pain Objective Objective Vital Signs Date Time Temp Pulse Resp B/P (MAP) Pulse Ox O2 Delivery O2 Flow Rate FiO2 12/21/20 07:45 Nasal Cannula 12/21/20 07:00 98.1 102 19 107/73 (84) 95 98.1 12/20/20 19:05 2.0 Intake and Output 12/21/20 07:00 Intake Total 3150 ml Output Total 600 ml Balance 2550 ml Intake Oral 0 ml IV Total 3150 ml Output Urine Total 600 ml # Voids 2 Physical Exam Physical Exam tender low abdomen, peritoneal signs Assessment Assessment Problems Medical Problems: (1) Hypomagnesemia Status: Acute (2) Perforated appendicitis Status: Acute Plan Plan of Care Exam still concerning, peritoneal signs, labs not improving; plan to OR Comment Review of Relevant I have reviewed the following items demetra (where applicable) has been applied. Labs Laboratory Tests Test 12/20/20 10:40 12/20/20 10:46 12/20/20 12:05 12/20/20 13:05 White Blood Count 12.1 x10^3/uL (4.0-11.0) Red Blood Count 4.69 x10^6/uL (4.30-5.70) Hemoglobin 12.9 g/dL (13.0-17.5) Hematocrit 40.3 % (39.0-53.0) Mean Corpuscular Volume 86 fL (79-100) Mean Corpuscular Hemoglobin 28 pg (25-35) Mean Corpuscular Hemoglobin Concent 32 g/dL (31-37) Red Cell Distribution Width 13.9 % (11.5-14.5) Platelet Count 220 x10^3/uL (140-400) Neutrophils (%) (Auto) 96 % (31-73) Lymphocytes (%) (Auto) 2 % (24-48) Monocytes (%) (Auto) 2 % (0-9) Eosinophils (%) (Auto) 0 % (0-3) Basophils (%) (Auto) 0 % (0-3) Neutrophils # (Auto) 11.6 x10^3/uL (1.8-7.7) Lymphocytes # (Auto) 0.3 x10^3/uL (1.0-4.8) Monocytes # (Auto) 0.2 x10^3/uL (0.0-1.1) Eosinophils # (Auto) 0.0 x10^3/uL (0.0-0.7) Basophils # (Auto) 0.0 x10^3/uL (0.0-0.2) Segmented Neutrophils % 80 % (35-66) Band Neutrophils % 15 % (0-9) Lymphocytes % 5 % (24-48) Platelet Estimate Adequate (ADEQUATE) Giant Platelets Occ Sodium Level 139 mmol/L (136-145) Potassium Level 3.6 mmol/L (3.5-5.1) Chloride Level 102 mmol/L (98-107) Carbon Dioxide Level 25 mmol/L (21-32) Anion Gap 12 (6-14) Blood Urea Nitrogen 12 mg/dL (8-26) Creatinine 1.8 mg/dL (0.7-1.3) Estimated GFR (Cockcroft-Gault) 47.0 BUN/Creatinine Ratio 7 (6-20) Glucose Level 87 mg/dL (70-99) Calcium Level 8.4 mg/dL (8.5-10.1) Magnesium Level 1.5 mg/dL (1.8-2.4) Total Bilirubin 1.6 mg/dL (0.2-1.0) Aspartate Amino Transf (AST/SGOT) 30 U/L (15-37) Alanine Aminotransferase (ALT/SGPT) 20 U/L (16-63) Alkaline Phosphatase 69 U/L (46-116) Total Protein 5.6 g/dL (6.4-8.2) Albumin 2.8 g/dL (3.4-5.0) Albumin/Globulin Ratio 1.0 (1.0-1.7) Lipase 83 U/L (73-393) Lactic Acid Level 2.8 mmol/L (0.4-2.0) Urine Collection Type Unknown Urine Color Yellow Urine Clarity Clear Urine pH 8.5 (<5.0-8.0) Urine Specific [place] 1.015 (1.000-1.030) Urine Protein Negative mg/dL (NEG-TRACE) Urine Glucose (UA) Negative mg/dL (NEG) Urine Ketones (Stick) Trace mg/dL (NEG) Urine Blood Negative (NEG) Urine Nitrite Negative (NEG) Urine Bilirubin Negative (NEG) Urine Urobilinogen Dipstick 1.0 mg/dL (0.2 mg/dL) Urine Leukocyte Esterase Negative (NEG) Urine RBC Occ /HPF (0-2) Urine WBC 1-4 /HPF (0-4) Urine Squamous Epithelial Cells Occ /LPF Urine Bacteria Few /HPF (0-FEW) Urine Mucus Slight /LPF SARS-CoV-2 Antigen (Rapid) Negative (NEGATIVE) Test 12/20/20 15:15 12/21/20 03:30 Lactic Acid Level 3.4 mmol/L (0.4-2.0) White Blood Count 13.2 x10^3/uL (4.0-11.0) Red Blood Count 4.28 x10^6/uL (4.30-5.70) Hemoglobin 12.1 g/dL (13.0-17.5) Hematocrit 36.6 % (39.0-53.0) Mean Corpuscular Volume 86 fL (79-100) Mean Corpuscular Hemoglobin 28 pg (25-35) Mean Corpuscular Hemoglobin Concent 33 g/dL (31-37) Red Cell Distribution Width 14.3 % (11.5-14.5) Platelet Count 194 x10^3/uL (140-400) Neutrophils (%) (Auto) 92 % (31-73) Lymphocytes (%) (Auto) 4 % (24-48) Monocytes (%) (Auto) 4 % (0-9) Eosinophils (%) (Auto) 0 % (0-3) Basophils (%) (Auto) 0 % (0-3) Neutrophils # (Auto) 12.1 x10^3/uL (1.8-7.7) Lymphocytes # (Auto) 0.5 x10^3/uL (1.0-4.8) Monocytes # (Auto) 0.5 x10^3/uL (0.0-1.1) Eosinophils # (Auto) 0.0 x10^3/uL (0.0-0.7) Basophils # (Auto) 0.0 x10^3/uL (0.0-0.2) Sodium Level 135 mmol/L (136-145) Potassium Level 3.3 mmol/L (3.5-5.1) Chloride Level 102 mmol/L (98-107) Carbon Dioxide Level 25 mmol/L (21-32) Anion Gap 8 (6-14) Blood Urea Nitrogen 16 mg/dL (8-26) Creatinine 1.8 mg/dL (0.7-1.3) Estimated GFR (Cockcroft-Gault) 47.0 BUN/Creatinine Ratio 9 (6-20) Glucose Level 74 mg/dL (70-99) Calcium Level 8.0 mg/dL (8.5-10.1) Magnesium Level 1.9 mg/dL (1.8-2.4) Total Bilirubin 1.7 mg/dL (0.2-1.0) Aspartate Amino Transf (AST/SGOT) 35 U/L (15-37) Alanine Aminotransferase (ALT/SGPT) 20 U/L (16-63) Alkaline Phosphatase 57 U/L (46-116) Total Protein 5.5 g/dL (6.4-8.2) Albumin 2.2 g/dL (3.4-5.0) Albumin/Globulin Ratio 0.7 (1.0-1.7) Laboratory Tests Test 12/20/20 10:40 12/20/20 10:46 12/20/20 12:05 12/20/20 13:05 White Blood Count 12.1 x10^3/uL (4.0-11.0) Red Blood Count 4.69 x10^6/uL (4.30-5.70) Hemoglobin 12.9 g/dL (13.0-17.5) Hematocrit 40.3 % (39.0-53.0) Mean Corpuscular Volume 86 fL (79-100) Mean Corpuscular Hemoglobin 28 pg (25-35) Mean Corpuscular Hemoglobin Concent 32 g/dL (31-37) Red Cell Distribution Width 13.9 % (11.5-14.5) Platelet Count 220 x10^3/uL (140-400) Neutrophils (%) (Auto) 96 % (31-73) Lymphocytes (%) (Auto) 2 % (24-48) Monocytes (%) (Auto) 2 % (0-9) Eosinophils (%) (Auto) 0 % (0-3) Basophils (%) (Auto) 0 % (0-3) Neutrophils # (Auto) 11.6 x10^3/uL (1.8-7.7) Lymphocytes # (Auto) 0.3 x10^3/uL (1.0-4.8) Monocytes # (Auto) 0.2 x10^3/uL (0.0-1.1) Eosinophils # (Auto) 0.0 x10^3/uL (0.0-0.7) Basophils # (Auto) 0.0 x10^3/uL (0.0-0.2) Segmented Neutrophils % 80 % (35-66) Band Neutrophils % 15 % (0-9) Lymphocytes % 5 % (24-48) Platelet Estimate Adequate (ADEQUATE) Giant Platelets Occ Sodium Level 139 mmol/L (136-145) Potassium Level 3.6 mmol/L (3.5-5.1) Chloride Level 102 mmol/L (98-107) Carbon Dioxide Level 25 mmol/L (21-32) Anion Gap 12 (6-14) Blood Urea Nitrogen 12 mg/dL (8-26) Creatinine 1.8 mg/dL (0.7-1.3) Estimated GFR (Cockcroft-Gault) 47.0 BUN/Creatinine Ratio 7 (6-20) Glucose Level 87 mg/dL (70-99) Calcium Level 8.4 mg/dL (8.5-10.1) Magnesium Level 1.5 mg/dL (1.8-2.4) Total Bilirubin 1.6 mg/dL (0.2-1.0) Aspartate Amino Transf (AST/SGOT) 30 U/L (15-37) Alanine Aminotransferase (ALT/SGPT) 20 U/L (16-63) Alkaline Phosphatase 69 U/L (46-116) Total Protein 5.6 g/dL (6.4-8.2) Albumin 2.8 g/dL (3.4-5.0) Albumin/Globulin Ratio 1.0 (1.0-1.7) Lipase 83 U/L (73-393) Lactic Acid Level 2.8 mmol/L (0.4-2.0) Urine Collection Type Unknown Urine Color Yellow Urine Clarity Clear Urine pH 8.5 (<5.0-8.0) Urine Specific [place] 1.015 (1.000-1.030) Urine Protein Negative mg/dL (NEG-TRACE) Urine Glucose (UA) Negative mg/dL (NEG) Urine Ketones (Stick) Trace mg/dL (NEG) Urine Blood Negative (NEG) Urine Nitrite Negative (NEG) Urine Bilirubin Negative (NEG) Urine Urobilinogen Dipstick 1.0 mg/dL (0.2 mg/dL) Urine Leukocyte Esterase Negative (NEG) Urine RBC Occ /HPF (0-2) Urine WBC 1-4 /HPF (0-4) Urine Squamous Epithelial Cells Occ /LPF Urine Bacteria Few /HPF (0-FEW) Urine Mucus Slight /LPF SARS-CoV-2 Antigen (Rapid) Negative (NEGATIVE) Test 12/20/20 15:15 12/21/20 03:30 Lactic Acid Level 3.4 mmol/L (0.4-2.0) White Blood Count 13.2 x10^3/uL (4.0-11.0) Red Blood Count 4.28 x10^6/uL (4.30-5.70) Hemoglobin 12.1 g/dL (13.0-17.5) Hematocrit 36.6 % (39.0-53.0) Mean Corpuscular Volume 86 fL (79-100) Mean Corpuscular Hemoglobin 28 pg (25-35) Mean Corpuscular Hemoglobin Concent 33 g/dL (31-37) Red Cell Distribution Width 14.3 % (11.5-14.5) Platelet Count 194 x10^3/uL (140-400) Neutrophils (%) (Auto) 92 % (31-73) Lymphocytes (%) (Auto) 4 % (24-48) Monocytes (%) (Auto) 4 % (0-9) Eosinophils (%) (Auto) 0 % (0-3) Basophils (%) (Auto) 0 % (0-3) Neutrophils # (Auto) 12.1 x10^3/uL (1.8-7.7) Lymphocytes # (Auto) 0.5 x10^3/uL (1.0-4.8) Monocytes # (Auto) 0.5 x10^3/uL (0.0-1.1) Eosinophils # (Auto) 0.0 x10^3/uL (0.0-0.7) Basophils # (Auto) 0.0 x10^3/uL (0.0-0.2) Sodium Level 135 mmol/L (136-145) Potassium Level 3.3 mmol/L (3.5-5.1) Chloride Level 102 mmol/L (98-107) Carbon Dioxide Level 25 mmol/L (21-32) Anion Gap 8 (6-14) Blood Urea Nitrogen 16 mg/dL (8-26) Creatinine 1.8 mg/dL (0.7-1.3) Estimated GFR (Cockcroft-Gault) 47.0 BUN/Creatinine Ratio 9 (6-20) Glucose Level 74 mg/dL (70-99) Calcium Level 8.0 mg/dL (8.5-10.1) Magnesium Level 1.9 mg/dL (1.8-2.4) Total Bilirubin 1.7 mg/dL (0.2-1.0) Aspartate Amino Transf (AST/SGOT) 35 U/L (15-37) Alanine Aminotransferase (ALT/SGPT) 20 U/L (16-63) Alkaline Phosphatase 57 U/L (46-116) Total Protein 5.5 g/dL (6.4-8.2) Albumin 2.2 g/dL (3.4-5.0) Albumin/Globulin Ratio 0.7 (1.0-1.7) Medications Current Medications Sodium Chloride 1,000 ml @ 1,000 mls/hr 1X ONCE IV Last administered on 12/20/20at 11:08; Start 12/20/20 at 11:15; Stop 12/20/20 at 12:14; Status DC Fentanyl Citrate (Fentanyl 2ml Vial) 50 mcg 1X ONCE IVP Last administered on 12/20/20at 12:31; Start 12/20/20 at 12:00; Stop 12/20/20 at 12:01; Status DC Piperacillin Sod/ Tazobactam Sod 3.375 gm/Sodium Chloride 50 ml @ 100 mls/hr 1X ONCE IV Last administered on 12/20/20at 12:15; Start 12/20/20 at 12:00; Stop 12/20/20 at 12:29; Status DC Magnesium Sulfate 50 ml @ 25 mls/hr 1X ONCE IV Last administered on 12/20/20at 12:16; Start 12/20/20 at 12:00; Stop 12/20/20 at 13:59; Status DC Sodium Chloride 1,000 ml @ 1,000 mls/hr 1X ONCE IV Last administered on 12/20/20at 13:16; Start 12/20/20 at 13:15; Stop 12/20/20 at 14:14; Status DC Fentanyl Citrate (Fentanyl 2ml Vial) 75 mcg 1X ONCE IVP Last administered on 12/20/20at 13:26; Start 12/20/20 at 13:45; Stop 12/20/20 at 13:46; Status DC Ondansetron HCl (Zofran) 4 mg PRN Q8HRS PRN IV NAUSEA/VOMITING; Start 12/20/20 at 13:15; Stop 12/20/20 at 13:46; Status DC Fentanyl Citrate (Fentanyl 2ml Vial) 50 mcg PRN Q1HR PRN IV PAIN; Start 12/20/20 at 13:15; Stop 12/21/20 at 13:14 Sodium Chloride 1,000 ml @ 100 mls/hr Q10H IV Last administered on 12/20/20at 23:23; Start 12/20/20 at 13:15; Stop 12/21/20 at 13:14 Sodium Chloride 1,000 ml @ 1,000 mls/hr 1X ONCE IV Last administered on 12/20/20at 13:30; Start 12/20/20 at 13:30; Stop 12/20/20 at 14:29; Status DC Piperacillin Sod/ Tazobactam Sod (Zosyn Per Pharmacy) 1 each PRN DAILY PRN MC SEE COMMENTS; Start 12/20/20 at 13:45 Ondansetron HCl (Zofran) 4 mg PRN Q4HRS PRN IV NAUSEA/VOMITING; Start 12/20/20 at 13:45 Acetaminophen (Tylenol Supp) 650 mg PRN Q4HRS PRN CO TEMP OVER 100.4F OR MILD PAIN Last administered on 12/21/20at 02:20; Start 12/20/20 at 13:45 Olanzapine (ZyPREXA ZYDIS) 5 mg PRN BID PRN PO ANXIETY / AGITATION; Start 12/20/20 at 13:45 Bisacodyl (Dulcolax Supp) 10 mg PRN DAILY PRN CO CONSTIPATION; Start 12/20/20 at 13:45 Heparin Sodium (Porcine) (Heparin Sodium) 5,000 unit BID ONCE SQ Last administered on 12/20/20at 20:08; Start 12/20/20 at 21:00; Stop 12/20/20 at 21:01; Status DC Morphine Sulfate (Morphine Sulfate) 4 mg PRN Q3HRS PRN IV SEVERE PAIN 7-10 Last administered on 12/21/20at 07:45; Start 12/20/20 at 13:45 Piperacillin Sod/ Tazobactam Sod 3.375 gm/Sodium Chloride 50 ml @ 100 mls/hr Q6HRS IV Last administered on 12/21/20at 05:33; Start 12/20/20 at 18:00 Amino Acids/ Glycerin/ Electrolytes 1,000 ml @ 80 mls/hr [id number] IV Last administered on 12/20/20at 20:20; Start 12/20/20 at 15:00 Potassium Chloride (Klor-Con) 40 meq 1X ONCE PO ; Start 12/21/20 at 10:00; Stop 12/21/20 at 10:01 Magnesium Sulfate/ Dextrose 100 ml @ 100 mls/hr 1X ONCE IV ; Start 12/21/20 at 10:00; Stop 12/21/20 at 10:59 Active Scripts Active Reported Lipitor (Atorvastatin Calcium) 40 Mg Tablet 1 Tab PO QHS Vitals/I & O Vital Sign - Last 24 Hours 12/20/20 12/20/20 12/20/20 12/20/20 10:45 10:56 12:12 12:28 Temp 98.3 98.3 Pulse 87 81 94 89 Resp 24 B/P (MAP) 90/50 (63) 90/50 (63) 92/57 (69) 108/64 (79) Pulse Ox 94 97 94 95 O2 Delivery Room Air Room Air Room Air Room Air 12/20/20 12/20/20 12/20/20 12/20/20 13:30 14:40 14:54 15:37 Temp 100.6 100.6 Pulse 94 100 Resp 20 B/P (MAP) 106/58 (74) 94/44 (61) Pulse Ox 94 96 O2 Delivery Nasal Cannula Nasal Cannula Room Air Room Air O2 Flow Rate 2.0 2.0 2.0 12/20/20 12/20/20 12/20/20 12/20/20 17:59 19:00 19:05 22:37 Temp 102.0 102.0 Pulse 106 Resp 20 18 B/P (MAP) 96/56 (69) Pulse Ox 94 O2 Delivery Nasal Cannula Room Air Nasal Cannula Room Air O2 Flow Rate 2.0 12/20/20 12/20/20 12/21/20 2/7/21 23:00 23:05 02:21 02:50 Temp 102.5 102.5 Pulse 107 Resp 20 19 19 B/P (MAP) 83/54 (64) Pulse Ox 93 O2 Delivery Room Air Room Air Room Air Room Air 12/21/20 12/21/20 12/21/20 12/21/20 03:00 04:05 07:00 07:45 Temp 101.6 100.0 98.1 101.6 100.0 98.1 Pulse 107 102 Resp 19 B/P (MAP) 99/55 (70) 107/73 (84) Pulse Ox 94 95 O2 Delivery Room Air Room Air Nasal Cannula Intake and Output 12/20/20 12/20/20 12/21/20 15:00 23:00 07:00 Intake Total 2050 ml 0 ml 1100 ml Output Total 125 ml 475 ml Balance 2050 ml -125 ml 625 ml Justifications for Admission Other Justification YOMAIRA CASTILLO MD Dec 21, 2020 09:58
[2020-12-21] MEDS ORDERED: POTASSIUM CHLORIDE 20 MEQ TABLET.ER. PO ONE (10:00)
[2020-12-21] MEDS ORDERED: MAGNESIUM SULFATE 1GM 100 ML IV ONE (10:00)
[2020-12-21] MEDS: AMINO AC 3%/ELECTROLYTE/GLYCER 1,000 ML IV SCH ×2 (10:08→16:00)
[2020-12-21] MEDS ORDERED: MORPHINE SULFATE 2 MG/ML VIAL. IVP PRN (10:15)
[2020-12-21] MEDS ORDERED: HYDROmorphone 2 MG/ML VIAL IVP PRN (10:15)
[2020-12-21] MEDS ORDERED: IV RINGERS,LACTATED 1000ML 1,000 ML IV SCH (10:15)
[2020-12-21] MEDS ORDERED: fentaNYL PF VIAL 100 MCG/2 ML VIAL IVP PRN ×2 (10:15)
[2020-12-21] MEDS ORDERED: SEVOFLURANE > 120 MINUTES. IH ONE (10:52)
[2020-12-21] MEDS ORDERED: ROCURONIUM 50 MG/5 ML VIAL. ONE ×2 (10:52→12:51)
[2020-12-21] MEDS ORDERED: SUCCINYLCHOLINE 200 MG/10 ML VIAL. ONE (10:52)
[2020-12-21] MEDS ORDERED: NEOSTIGMINE METHYLSULFATE 5 MG/5 ML SYRINGE. ONE (10:52)
[2020-12-21] MEDS ORDERED: fentaNYL PF VIAL 100 MCG/2 ML VIAL ONE ×2 (10:52→12:49)
[2020-12-21] MEDS ORDERED: GLYCOPYRROLATE 1 MG/5 ML VIAL. ONE (10:53)
[2020-12-21] MEDS ORDERED: ONDANSETRON PF 4 MG/2 ML VIAL. ONE (10:53)
[2020-12-21] MEDS ORDERED: PROPOFOL 10 MG/ML (20ML) VIAL. IV ONE (10:53)
[2020-12-21] MEDS ORDERED: MIDAZOLAM HCL/PF 2 MG/2 ML VIAL. ONE (10:53)
[2020-12-21] MEDS ORDERED: DEXAMETHASONE SOD PHOS 4 MG/ML VIAL ONE (10:53)
[2020-12-21] MEDS ORDERED: LIDOCAINE 2% PF 5 ML VIAL. ONE (10:53)
[2020-12-21] MEDS ORDERED: IV NORMAL SALINE 1000ML BAG 1,000 ML IV ONE (11:00)
[2020-12-21] MEDS: IV NORMAL SALINE 1000ML BAG 1,000 ML IV SCH ×2 (11:05→16:12)
[2020-12-21] MEDS: POTASSIUM CHLORIDE 10MEQ 100 ML IV SCH ×4 (11:06→18:05)
[2020-12-21] MEDS ORDERED: BUPIVACAINE-EPI 0.5% 30 ML VIAL KIT. ONE (11:10)
--- NOTE | 2020-12-21 11:28 | PDOC ---
PROGRESS NOTES Date of Service: DATE: 12/21/20 TIME: 11:24 Chief Complaint Chief Complaint Perforated appendicitis - abscess presence unclear, will f/u renal function to obtain CT with contrast vs US. NPO, IV pain control. Zosyn q6hrs. Surgery consulted Intractable abdominal pain - due to above, IV morphine, prn IV fentanyl Sepsis - due to perforated diverticulitis - given empiric IVF and zosyn ALYSIA - likely vasomotor nephropathy given poor PO intake, continue IV fluid resuscitation, creatinine seems to be at baseline since no changes have been noted although it could be compromised due to his underlying infectious process Pelvic fluid collection - between seminal vesicles and rectum, possibly abscess, will repeat labs and try CT with contrast if renal function improves Elevated PSA - noted outpatient Bilateral hip osteoarthrosis - noted on CT Hypomagnesemia - Replace IV Elevated bilirubin - will monitor Moderate protein calorie malnutrition - will start on IV nutrition FEN - NPO, NSS, procalamine PPX - heparin FULL CODE Dispo - inpatient for above, negative rapid covid19, continue IV antibiotics and bowel rest, will defer to surgery for further surgical decision making History of Present Illness History of Present Illness Mr Rosales is a 60 year old male w/ PMHx HLD and recent elevated PSA of 13 who presented to ER due to intractable abdominal pain for the past 24 hours. He and his brother, bedside, note that his symptoms have been going on for a week intermittently and 5 days ago he felt his pain suddenly improve and then intermittently with cramping pain with eating for the past 3 days prior to presentation, but on 12/19/2020 it got significantly worse overnight and became constant, sharp in his RLQ with associated chills without fever. He is thirsty but has not been able to eat or drink without nausea, now has no appetite. He notes his urine output has dropped the last few days, but thought it was his prostate as a few months ago he had his PSA elevated. Patient denies any cough or chest pain or any trouble breathing. In ED noted to be tachycardic 100 bpm and febrile to 100.[address] abdomen/pelvis elongated masslike structure in the right lower quadrant with surrounding fat stranding suspicious for ruptured appendicitis with phlegmon or complex abscess. WBC 12.1, Hb 12.9, platelets 220, Na 139, K 3.6, BUN 12, Cr 1.8, glucose 87, Mg 1.5, lactic acid 2.8, Bilirubin 1.6, Albumin 2.8. Admitted for further care. 12/21: Patient with fever overnight and chills. Still having abdominal discomfort somewhat improved compared to admission. Discussed with surgical scrub technician. He may need surgery later in the day Vitals Vitals Vital Signs Date Time Temp Pulse Resp B/P (MAP) Pulse Ox O2 Delivery O2 Flow Rate FiO2 12/21/20 11:09 99.6 102 19 88/54 (65) 95 Room Air 99.6 12/21/20 08:00 2.0 Physical Exam General: Alert, Oriented X3, Cooperative, mild distress Heart: Regular rate, Normal S1, Normal S2, No murmurs Lungs: Clear Abdomen: Normal bowel sounds, No hepatosplenomegaly, No masses, Other (Diffusely tender) Extremities: No clubbing, No cyanosis, No edema, Normal pulses, No tenderness/swelling Skin: No rashes, No breakdown, No significant lesion Labs LABS Laboratory Tests Test 12/20/20 12:05 12/20/20 13:05 12/20/20 15:15 12/21/20 03:30 Urine Collection Type Unknown Urine Color Yellow Urine Clarity Clear Urine pH 8.5 (<5.0-8.0) Urine Specific [place] 1.015 (1.000-1.030) Urine Protein Negative mg/dL (NEG-TRACE) Urine Glucose (UA) Negative mg/dL (NEG) Urine Ketones (Stick) Trace mg/dL (NEG) Urine Blood Negative (NEG) Urine Nitrite Negative (NEG) Urine Bilirubin Negative (NEG) Urine Urobilinogen Dipstick 1.0 mg/dL (0.2 mg/dL) Urine Leukocyte Esterase Negative (NEG) Urine RBC Occ /HPF (0-2) Urine WBC 1-4 /HPF (0-4) Urine Squamous Epithelial Cells Occ /LPF Urine Bacteria Few /HPF (0-FEW) Urine Mucus Slight /LPF SARS-CoV-2 Antigen (Rapid) Negative (NEGATIVE) Lactic Acid Level 3.4 mmol/L (0.4-2.0) White Blood Count 13.2 x10^3/uL (4.0-11.0) Red Blood Count 4.28 x10^6/uL (4.30-5.70) Hemoglobin 12.1 g/dL (13.0-17.5) Hematocrit 36.6 % (39.0-53.0) Mean Corpuscular Volume 86 fL (79-100) Mean Corpuscular Hemoglobin 28 pg (25-35) Mean Corpuscular Hemoglobin Concent 33 g/dL (31-37) Red Cell Distribution Width 14.3 % (11.5-14.5) Platelet Count 194 x10^3/uL (140-400) Neutrophils (%) (Auto) 92 % (31-73) Lymphocytes (%) (Auto) 4 % (24-48) Monocytes (%) (Auto) 4 % (0-9) Eosinophils (%) (Auto) 0 % (0-3) Basophils (%) (Auto) 0 % (0-3) Neutrophils # (Auto) 12.1 x10^3/uL (1.8-7.7) Lymphocytes # (Auto) 0.5 x10^3/uL (1.0-4.8) Monocytes # (Auto) 0.5 x10^3/uL (0.0-1.1) Eosinophils # (Auto) 0.0 x10^3/uL (0.0-0.7) Basophils # (Auto) 0.0 x10^3/uL (0.0-0.2) Sodium Level 135 mmol/L (136-145) Potassium Level 3.3 mmol/L (3.5-5.1) Chloride Level 102 mmol/L (98-107) Carbon Dioxide Level 25 mmol/L (21-32) Anion Gap 8 (6-14) Blood Urea Nitrogen 16 mg/dL (8-26) Creatinine 1.8 mg/dL (0.7-1.3) Estimated GFR (Cockcroft-Gault) 47.0 BUN/Creatinine Ratio 9 (6-20) Glucose Level 74 mg/dL (70-99) Calcium Level 8.0 mg/dL (8.5-10.1) Magnesium Level 1.9 mg/dL (1.8-2.4) Total Bilirubin 1.7 mg/dL (0.2-1.0) Aspartate Amino Transf (AST/SGOT) 35 U/L (15-37) Alanine Aminotransferase (ALT/SGPT) 20 U/L (16-63) Alkaline Phosphatase 57 U/L (46-116) Total Protein 5.5 g/dL (6.4-8.2) Albumin 2.2 g/dL (3.4-5.0) Albumin/Globulin Ratio 0.7 (1.0-1.7) Review of Systems Review of Systems Review of systems pertinent as per HPI otherwise 14 point review of system is negative Assessment and Plan Assessmemt and Plan Problems Medical Problems: (1) Hypomagnesemia Status: Acute (2) Perforated appendicitis Status: Acute Comment Review of Relevant I have reviewed the following items demetra (where applicable) has been applied. Labs Laboratory Tests Test 12/20/20 10:40 12/20/20 10:46 12/20/20 12:05 12/20/20 13:05 White Blood Count 12.1 x10^3/uL (4.0-11.0) Red Blood Count 4.69 x10^6/uL (4.30-5.70) Hemoglobin 12.9 g/dL (13.0-17.5) Hematocrit 40.3 % (39.0-53.0) Mean Corpuscular Volume 86 fL (79-100) Mean Corpuscular Hemoglobin 28 pg (25-35) Mean Corpuscular Hemoglobin Concent 32 g/dL (31-37) Red Cell Distribution Width 13.9 % (11.5-14.5) Platelet Count 220 x10^3/uL (140-400) Neutrophils (%) (Auto) 96 % (31-73) Lymphocytes (%) (Auto) 2 % (24-48) Monocytes (%) (Auto) 2 % (0-9) Eosinophils (%) (Auto) 0 % (0-3) Basophils (%) (Auto) 0 % (0-3) Neutrophils # (Auto) 11.6 x10^3/uL (1.8-7.7) Lymphocytes # (Auto) 0.3 x10^3/uL (1.0-4.8) Monocytes # (Auto) 0.2 x10^3/uL (0.0-1.1) Eosinophils # (Auto) 0.0 x10^3/uL (0.0-0.7) Basophils # (Auto) 0.0 x10^3/uL (0.0-0.2) Segmented Neutrophils % 80 % (35-66) Band Neutrophils % 15 % (0-9) Lymphocytes % 5 % (24-48) Platelet Estimate Adequate (ADEQUATE) Giant Platelets Occ Sodium Level 139 mmol/L (136-145) Potassium Level 3.6 mmol/L (3.5-5.1) Chloride Level 102 mmol/L (98-107) Carbon Dioxide Level 25 mmol/L (21-32) Anion Gap 12 (6-14) Blood Urea Nitrogen 12 mg/dL (8-26) Creatinine 1.8 mg/dL (0.7-1.3) Estimated GFR (Cockcroft-Gault) 47.0 BUN/Creatinine Ratio 7 (6-20) Glucose Level 87 mg/dL (70-99) Calcium Level 8.4 mg/dL (8.5-10.1) Magnesium Level 1.5 mg/dL (1.8-2.4) Total Bilirubin 1.6 mg/dL (0.2-1.0) Aspartate Amino Transf (AST/SGOT) 30 U/L (15-37) Alanine Aminotransferase (ALT/SGPT) 20 U/L (16-63) Alkaline Phosphatase 69 U/L (46-116) Total Protein 5.6 g/dL (6.4-8.2) Albumin 2.8 g/dL (3.4-5.0) Albumin/Globulin Ratio 1.0 (1.0-1.7) Lipase 83 U/L (73-393) Lactic Acid Level 2.8 mmol/L (0.4-2.0) Urine Collection Type Unknown Urine Color Yellow Urine Clarity Clear Urine pH 8.5 (<5.0-8.0) Urine Specific [place] 1.015 (1.000-1.030) Urine Protein Negative mg/dL (NEG-TRACE) Urine Glucose (UA) Negative mg/dL (NEG) Urine Ketones (Stick) Trace mg/dL (NEG) Urine Blood Negative (NEG) Urine Nitrite Negative (NEG) Urine Bilirubin Negative (NEG) Urine Urobilinogen Dipstick 1.0 mg/dL (0.2 mg/dL) Urine Leukocyte Esterase Negative (NEG) Urine RBC Occ /HPF (0-2) Urine WBC 1-4 /HPF (0-4) Urine Squamous Epithelial Cells Occ /LPF Urine Bacteria Few /HPF (0-FEW) Urine Mucus Slight /LPF SARS-CoV-2 Antigen (Rapid) Negative (NEGATIVE) Test 12/20/20 15:15 12/21/20 03:30 Lactic Acid Level 3.4 mmol/L (0.4-2.0) White Blood Count 13.2 x10^3/uL (4.0-11.0) Red Blood Count 4.28 x10^6/uL (4.30-5.70) Hemoglobin 12.1 g/dL (13.0-17.5) Hematocrit 36.6 % (39.0-53.0) Mean Corpuscular Volume 86 fL (79-100) Mean Corpuscular Hemoglobin 28 pg (25-35) Mean Corpuscular Hemoglobin Concent 33 g/dL (31-37) Red Cell Distribution Width 14.3 % (11.5-14.5) Platelet Count 194 x10^3/uL (140-400) Neutrophils (%) (Auto) 92 % (31-73) Lymphocytes (%) (Auto) 4 % (24-48) Monocytes (%) (Auto) 4 % (0-9) Eosinophils (%) (Auto) 0 % (0-3) Basophils (%) (Auto) 0 % (0-3) Neutrophils # (Auto) 12.1 x10^3/uL (1.8-7.7) Lymphocytes # (Auto) 0.5 x10^3/uL (1.0-4.8) Monocytes # (Auto) 0.5 x10^3/uL (0.0-1.1) Eosinophils # (Auto) 0.0 x10^3/uL (0.0-0.7) Basophils # (Auto) 0.0 x10^3/uL (0.0-0.2) Sodium Level 135 mmol/L (136-145) Potassium Level 3.3 mmol/L (3.5-5.1) Chloride Level 102 mmol/L (98-107) Carbon Dioxide Level 25 mmol/L (21-32) Anion Gap 8 (6-14) Blood Urea Nitrogen 16 mg/dL (8-26) Creatinine 1.8 mg/dL (0.7-1.3) Estimated GFR (Cockcroft-Gault) 47.0 BUN/Creatinine Ratio 9 (6-20) Glucose Level 74 mg/dL (70-99) Calcium Level 8.0 mg/dL (8.5-10.1) Magnesium Level 1.9 mg/dL (1.8-2.4) Total Bilirubin 1.7 mg/dL (0.2-1.0) Aspartate Amino Transf (AST/SGOT) 35 U/L (15-37) Alanine Aminotransferase (ALT/SGPT) 20 U/L (16-63) Alkaline Phosphatase 57 U/L (46-116) Total Protein 5.5 g/dL (6.4-8.2) Albumin 2.2 g/dL (3.4-5.0) Albumin/Globulin Ratio 0.7 (1.0-1.7) Laboratory Tests Test 12/20/20 12:05 12/20/20 13:05 12/20/20 15:15 12/21/20 03:30 Urine Collection Type Unknown Urine Color Yellow Urine Clarity Clear Urine pH 8.5 (<5.0-8.0) Urine Specific [place] 1.015 (1.000-1.030) Urine Protein Negative mg/dL (NEG-TRACE) Urine Glucose (UA) Negative mg/dL (NEG) Urine Ketones (Stick) Trace mg/dL (NEG) Urine Blood Negative (NEG) Urine Nitrite Negative (NEG) Urine Bilirubin Negative (NEG) Urine Urobilinogen Dipstick 1.0 mg/dL (0.2 mg/dL) Urine Leukocyte Esterase Negative (NEG) Urine RBC Occ /HPF (0-2) Urine WBC 1-4 /HPF (0-4) Urine Squamous Epithelial Cells Occ /LPF Urine Bacteria Few /HPF (0-FEW) Urine Mucus Slight /LPF SARS-CoV-2 Antigen (Rapid) Negative (NEGATIVE) Lactic Acid Level 3.4 mmol/L (0.4-2.0) White Blood Count 13.2 x10^3/uL (4.0-11.0) Red Blood Count 4.28 x10^6/uL (4.30-5.70) Hemoglobin 12.1 g/dL (13.0-17.5) Hematocrit 36.6 % (39.0-53.0) Mean Corpuscular Volume 86 fL (79-100) Mean Corpuscular Hemoglobin 28 pg (25-35) Mean Corpuscular Hemoglobin Concent 33 g/dL (31-37) Red Cell Distribution Width 14.3 % (11.5-14.5) Platelet Count 194 x10^3/uL (140-400) Neutrophils (%) (Auto) 92 % (31-73) Lymphocytes (%) (Auto) 4 % (24-48) Monocytes (%) (Auto) 4 % (0-9) Eosinophils (%) (Auto) 0 % (0-3) Basophils (%) (Auto) 0 % (0-3) Neutrophils # (Auto) 12.1 x10^3/uL (1.8-7.7) Lymphocytes # (Auto) 0.5 x10^3/uL (1.0-4.8) Monocytes # (Auto) 0.5 x10^3/uL (0.0-1.1) Eosinophils # (Auto) 0.0 x10^3/uL (0.0-0.7) Basophils # (Auto) 0.0 x10^3/uL (0.0-0.2) Sodium Level 135 mmol/L (136-145) Potassium Level 3.3 mmol/L (3.5-5.1) Chloride Level 102 mmol/L (98-107) Carbon Dioxide Level 25 mmol/L (21-32) Anion Gap 8 (6-14) Blood Urea Nitrogen 16 mg/dL (8-26) Creatinine 1.8 mg/dL (0.7-1.3) Estimated GFR (Cockcroft-Gault) 47.0 BUN/Creatinine Ratio 9 (6-20) Glucose Level 74 mg/dL (70-99) Calcium Level 8.0 mg/dL (8.5-10.1) Magnesium Level 1.9 mg/dL (1.8-2.4) Total Bilirubin 1.7 mg/dL (0.2-1.0) Aspartate Amino Transf (AST/SGOT) 35 U/L (15-37) Alanine Aminotransferase (ALT/SGPT) 20 U/L (16-63) Alkaline Phosphatase 57 U/L (46-116) Total Protein 5.5 g/dL (6.4-8.2) Albumin 2.2 g/dL (3.4-5.0) Albumin/Globulin Ratio 0.7 (1.0-1.7) Medications Current Medications Sodium Chloride 1,000 ml @ 1,000 mls/hr 1X ONCE IV Last administered on 12/20/20at 11:08; Start 12/20/20 at 11:15; Stop 12/20/20 at 12:14; Status DC Fentanyl Citrate (Fentanyl 2ml Vial) 50 mcg 1X ONCE IVP Last administered on 12/20/20at 12:31; Start 12/20/20 at 12:00; Stop 12/20/20 at 12:01; Status DC Piperacillin Sod/ Tazobactam Sod 3.375 gm/Sodium Chloride 50 ml @ 100 mls/hr 1X ONCE IV Last administered on 12/20/20at 12:15; Start 12/20/20 at 12:00; Stop 12/20/20 at 12:29; Status DC Magnesium Sulfate 50 ml @ 25 mls/hr 1X ONCE IV Last administered on 12/20/20at 12:16; Start 12/20/20 at 12:00; Stop 12/20/20 at 13:59; Status DC Sodium Chloride 1,000 ml @ 1,000 mls/hr 1X ONCE IV Last administered on 12/20/20at 13:16; Start 12/20/20 at 13:15; Stop 12/20/20 at 14:14; Status DC Fentanyl Citrate (Fentanyl 2ml Vial) 75 mcg 1X ONCE IVP Last administered on 12/20/20at 13:26; Start 12/20/20 at 13:45; Stop 12/20/20 at 13:46; Status DC Ondansetron HCl (Zofran) 4 mg PRN Q8HRS PRN IV NAUSEA/VOMITING; Start 12/20/20 at 13:15; Stop 12/20/20 at 13:46; Status DC Fentanyl Citrate (Fentanyl 2ml Vial) 50 mcg PRN Q1HR PRN IV PAIN; Start 12/20/20 at 13:15; Stop 12/21/20 at 13:14 Sodium Chloride 1,000 ml @ 100 mls/hr Q10H IV Last administered on 12/21/20at 11:05; Start 12/20/20 at 13:15; Stop 12/21/20 at 13:14 Sodium Chloride 1,000 ml @ 1,000 mls/hr 1X ONCE IV Last administered on 12/20/20at 13:30; Start 12/20/20 at 13:30; Stop 12/20/20 at 14:29; Status DC Piperacillin Sod/ Tazobactam Sod (Zosyn Per Pharmacy) 1 each PRN DAILY PRN MC SEE COMMENTS; Start 12/20/20 at 13:45 Ondansetron HCl (Zofran) 4 mg PRN Q4HRS PRN IV NAUSEA/VOMITING; Start 12/20/20 at 13:45 Acetaminophen (Tylenol Supp) 650 mg PRN Q4HRS PRN DE TEMP OVER 100.4F OR MILD PAIN Last administered on 12/21/20at 02:20; Start 12/20/20 at 13:45 Olanzapine (ZyPREXA ZYDIS) 5 mg PRN BID PRN PO ANXIETY / AGITATION; Start 12/20/20 at 13:45 Bisacodyl (Dulcolax Supp) 10 mg PRN DAILY PRN DE CONSTIPATION; Start 12/20/20 at 13:45 Heparin Sodium (Porcine) (Heparin Sodium) 5,000 unit BID ONCE SQ Last administered on 12/20/20at 20:08; Start 12/20/20 at 21:00; Stop 12/20/20 at 21:01; Status DC Morphine Sulfate (Morphine Sulfate) 4 mg PRN Q3HRS PRN IV SEVERE PAIN 7-10 Last administered on 12/21/20at 07:45; Start 12/20/20 at 13:45 Piperacillin Sod/ Tazobactam Sod 3.375 gm/Sodium Chloride 50 ml @ 100 mls/hr Q6HRS IV Last administered on 12/21/20at 05:33; Start 12/20/20 at 18:00 Amino Acids/ Glycerin/ Electrolytes 1,000 ml @ 80 mls/hr [id number] IV Last administered on 12/21/20at 10:08; Start 12/20/20 at 15:00 Potassium Chloride (Klor-Con) 40 meq 1X ONCE PO ; Start 12/21/20 at 10:00; Stop 12/21/20 at 10:01; Status DC Magnesium Sulfate/ Dextrose 100 ml @ 100 mls/hr 1X ONCE IV ; Start 12/21/20 at 10:00; Stop 12/21/20 at 10:59; Status DC Fentanyl Citrate (Fentanyl 2ml Vial) 25 mcg PRN Q5MIN PRN IVP MILD PAIN 1-3; Start 12/21/20 at 10:15; Stop 12/22/20 at 10:14 Fentanyl Citrate (Fentanyl 2ml Vial) 50 mcg PRN Q5MIN PRN IVP MODERATE PAIN 4- 6; Start 12/21/20 at 10:15; Stop 12/22/20 at 10:14 Morphine Sulfate (Morphine Sulfate) 1 mg PRN Q10MIN PRN IVP SEVERE PAIN 7-10; Start 12/21/20 at 10:15; Stop 12/22/20 at 10:14 Ringer's Solution 1,000 ml @ 30 mls/hr Q24H IV ; Start 12/21/20 at 10:15; Stop 12/21/20 at 22:14 Hydromorphone HCl (Dilaudid) 0.5 mg PRN Q10MIN PRN IVP SEVERE PAIN 7-10, 2nd CHOICE; Start 12/21/20 at 10:15; Stop 12/22/20 at 10:14 Prochlorperazine Edisylate (Compazine) 5 mg PACU PRN PRN IVP NAUSEA, MRX1; Start 12/21/20 at 10:15; Stop 12/22/20 at 10:14 Potassium Chloride/Water 100 ml @ 100 mls/hr Q1H IV Last administered on 12/21/20at 11:06; Start 12/21/20 at 12:00; Stop 12/21/20 at 15:59 Sevoflurane (Ultane) 90 ml STK-MED ONCE IH ; Start 12/21/20 at 10:52; Stop 12/21/20 at 10:52; Status DC Succinylcholine Chloride (Anectine) 200 mg STK-MED ONCE .ROUTE ; Start 12/21/20 at 10:52; Stop 12/21/20 at 10:52; Status DC Neostigmine [place] (Neostigmine Methylsulfate) 5 mg STK-MED ONCE .ROUTE ; Start 12/21/20 at 10:52; Stop 12/21/20 at 10:52; Status DC Rocuronium [place] (Zemuron) 50 mg STK-MED ONCE .ROUTE ; Start 12/21/20 at 10:52; Stop 12/21/20 at 10:52; Status DC Fentanyl Citrate (Fentanyl 2ml Vial) 100 mcg STK-MED ONCE .ROUTE ; Start 12/21/20 at 10:52; Stop 12/21/20 at 10:53; Status DC Midazolam HCl (Versed) 2 mg STK-MED ONCE .ROUTE ; Start 12/21/20 at 10:53; Stop 12/21/20 at 10:53; Status DC Glycopyrrolate (Robinul) 1 mg STK-MED ONCE .ROUTE ; Start 12/21/20 at 10:53; Stop 12/21/20 at 10:53; Status DC Propofol (Diprivan) 200 mg STK-MED ONCE IV ; Start 12/21/20 at 10:53; Stop 12/21/20 at 10:53; Status DC Dexamethasone Sodium Phosphate (Decadron) 4 mg STK-MED ONCE .ROUTE ; Start 12/21/20 at 10:53; Stop 12/21/20 at 10:53; Status DC Ondansetron HCl (Zofran) 4 mg STK-MED ONCE .ROUTE ; Start 12/21/20 at 10:53; Stop 12/21/20 at 10:53; Status DC Lidocaine HCl (Lidocaine Pf 2% Vial) 5 ml STK-MED ONCE .ROUTE ; Start 12/21/20 at 10:53; Stop 12/21/20 at 10:53; Status DC Sodium Chloride 1,000 ml @ 1,000 mls/hr 1X ONCE IV Last administered on 12/21/20at 11:09; Start 12/21/20 at 11:00; Stop 12/21/20 at 11:59 Bupivacaine HCl/ Epinephrine Bitart (Sensorcain-Epi 0.5% Kit) 30 ml STK-MED ONCE .ROUTE ; Start 12/21/20 at 11:10; Stop 12/21/20 at 11:11; Status DC Active Scripts Active Reported Lipitor (Atorvastatin Calcium) 40 Mg Tablet 1 Tab PO QHS Vitals/I & O Vital Sign - Last 24 Hours 12/20/20 12/20/20 12/20/20 12/20/20 12:12 12:28 13:30 14:40 Temp 100.6 100.6 Pulse 94 89 94 100 Resp 20 B/P (MAP) 92/57 (69) 108/64 (79) 106/58 (74) 94/44 (61) Pulse Ox 94 95 94 96 O2 Delivery Room Air Room Air Nasal Cannula Nasal Cannula O2 Flow Rate 2.0 2.0 12/20/20 12/20/20 12/20/20 12/20/20 14:54 15:37 17:59 19:00 Temp 102.0 102.0 Pulse 106 Resp 20 B/P (MAP) 96/56 (69) Pulse Ox 94 O2 Delivery Room Air Room Air Nasal Cannula Room Air O2 Flow Rate 2.0 12/20/20 12/20/20 12/20/20 12/20/20 19:05 22:37 23:00 23:05 Temp 102.5 102.5 Pulse 107 Resp 18 20 19 B/P (MAP) 83/54 (64) Pulse Ox 93 O2 Delivery Nasal Cannula Room Air Room Air Room Air O2 Flow Rate 2.0 12/21/20 12/21/20 12/21/20 12/21/20 02:21 02:50 03:00 04:05 Temp 101.6 100.0 101.6 100.0 Pulse 107 Resp 19 19 B/P (MAP) 99/55 (70) Pulse Ox 94 O2 Delivery Room Air Room Air Room Air 12/21/20 12/21/20 12/21/20 12/21/20 07:00 07:45 08:00 11:09 Temp 98.1 99.6 98.1 99.6 Pulse 102 102 Resp 19 19 B/P (MAP) 107/73 (84) 88/54 (65) Pulse Ox 95 95 O2 Delivery Room Air Nasal Cannula Nasal Cannula Room Air O2 Flow Rate 2.0 Intake and Output 12/20/20 12/20/20 12/21/20 15:00 23:00 07:00 Intake Total 2050 ml 0 ml 1100 ml Output Total 125 ml 475 ml Balance 2050 ml -125 ml 625 ml Justicifation of Admission Dx: Justifications for Admission: Justification of Admission Dx: Comment: (Perforated appendicitis) REAL REED MD Dec 21, 2020 11:28
[2020-12-21] MEDS ORDERED: WATER FOR INJECTION,STERILE 10 ML IJ ONE (11:43)
[2020-12-21] MEDS ORDERED: ePHEDrine PF IN SALINE 50 MG/10 ML SYRINGE. IV ONE (12:25)
[2020-12-21] MEDS ORDERED: PHENYLEPHRINE in 0.9% NACL PF 1 MG/10 ML SYRINGE. IV ONE (12:32)
--- NOTE | 2020-12-21 13:54 | PDOC4 ---
Operative Note Operative Note Operative Note: Preoperative Diagnosis: Perforated appendicitis Postoperative Diagnosis: Same Procedure: Laparoscopic converted to open appendectomy, drainage of abdominal abscesses Surgeon: Paulo Coastal Tug Mate: Estefany Kohler Anesthesia: General EBL: 50 mL Specimen: Appendix to pathology Drains: 19 [place] ROSETTA drain to lower abdomen Complications: None Indication: The patient is a 60-year-old male who reported to the hospital with abdominal pain. His evaluation was concerning for perforated appendicitis with phlegmon. After initial treatment with hydration, pain control, and IV antibiotics his examination remain concerning for peritonitis. We recommend proceeding for surgical intervention. The risks of surgery were discussed which include bleeding, infection, visceral injury, pain, anesthetic risk, potential need for additional surgery procedure. He understands and would like to proceed. Description: The patient was taken to the operating room and placed supine in the operating table. General anesthesia was performed. The abdomen was prepped with ChloraPrep and draped in a standard surgical manner. A left upper quadrant incision was made in the skin through which a visualized 5 mm trocar was inserted. Pneumoperitoneum was created and the laparoscope was introduced. Two additional 5 mm trochars were inserted in the left lateral abdomen. In the lower abdomen and pelvis there was an obvious inflammatory reaction with turbid appearing fluid. Further inspection showed some large abscesses which were suctioned. There was marked inflammatory response of surrounding structures including the sigmoid colon. Further examination seem to identify a large tubular structure coming from the cecum consistent with perforated appendicitis. The structure was massively enlarged and socked in due to an inflammatory response. We converted to an open approach. A lower vertical midline incision was made in the skin with a scalpel. Cautery dissection was carried down to the fascia. The fascia and peritoneum were then divided and the Omni retractor was used for the remainder of the case to facilitate exposure. With digital dissection I was able to free up the mid and distal portion of the socked in appendix. The appendix was massively enlarged with marked surrounding inflammatory response. There appeared to be a likely perforation site as well in the body of the appendix. We mobilized the appendix down to its base. The mesoappendix was and ligated with 2-0 Vicryl. The mesoappendix was then amputated off the cecum using a XIN 55 stapling device. The appendix was sent to pathology. Inspection of the cecum and sigmoid colon was unremarkable apart from secondary inflammatory change. The entire abdomen was then irrigated with a large amount of sterile saline. This was then suctioned and hemostasis was good. A 19 Burmese ROSETTA drain was left in the lower abdomen with an exit site and a left lower quadrant laparoscopic incision. This was secured to the skin with 2-0 silk. The fascia was closed with 1 PDS. A [place] drain was left in subcutaneous tissues which exited inferiorly. This was secured to the skin with 3-0 Vicryl. The subcutaneous tissues were approximated with 3-0 Vicryl and skin closed with 4-0 Monocryl. A sterile dressing was then applied. The patient tolerated procedure well was sent to the covering room in stable condition. At the end of the case all counts were correct. YOMAIRA CASTILLO MD Dec 21, 2020 13:54
[2020-12-21] MEDS ORDERED: NALOXONE 0.4 MG/ML VIAL. IV PRN (14:00)
[2020-12-21] MEDS ORDERED: HYDROmorphone 12mg/30ml PCA 30 ML IV PRN (14:00)
[2020-12-21] MEDS ORDERED: PROCHLORPERAZINE 10 MG/2 ML VIAL. ONE (14:17)
[2020-12-21] MEDS: PROCHLORPERAZINE 10 MG/2 ML VIAL. IVP PRN ×2 (14:22→14:34)
[2020-12-22 02:57] VITALS: BP 106/83
[2020-12-22] MEDS: AMINO AC 3%/ELECTROLYTE/GLYCER 1,000 ML IV SCH ×2 (05:44→18:01)
[2020-12-22] MEDS: PIPERACILLIN/TAZOBACTAM 3.375 GM in IV NORMAL SALINE 50ML 50 ML IV SCH ×4 (05:45→23:45)
[2020-12-22 07:00] VITALS: BP 155/107
[2020-12-22 07:32] LABS: BASO % 0 % (0-3); EOS # 0.3 x10^3/uL (0.0-0.7); EOS % 2 % (0-3); HEMATOCRIT 35.7 % (39.0-53.0); HEMOGLOBIN 11.6 g/dL (13.0-17.5); LYMPH # 0.5 x10^3/uL (1.0-4.8); LYMPH % 3 % (24-48); MEAN CORPUSCULAR HEMOGLOBIN 28 pg (25-35); MEAN CORPUSCULAR HGB CONC 33 g/dL (31-37); MEAN CORPUSCULAR VOLUME 85 fL (79-100); MONO # 0.8 x10^3/uL (0.0-1.1); MONO % 5 % (0-9); NEUT # 15.8 x10^3/uL (1.8-7.7); NEUT % 91 % (31-73); PLATELET COUNT 219 x10^3/uL (140-400); RED BLOOD COUNT 4.21 x10^6/uL (4.30-5.70); RED CELL DISTRIBUTION WIDTH 14.2 % (11.5-14.5); WHITE BLOOD COUNT 17.4 x10^3/uL (4.0-11.0)
[2020-12-22 07:48] LABS: ALBUMIN 1.8 g/dL (3.4-5.0); ALBUMIN/GLOBULIN RATIO 0.5 (1.0-1.7); CALCIUM 8.3 mg/dL (8.5-10.1); CREATININE 1.3 mg/dL (0.7-1.3); GFR 68.4; POTASSIUM 4.3 mmol/L (3.5-5.1); TOTAL PROTEIN 5.8 g/dL (6.4-8.2)
--- NOTE | 2020-12-22 09:20 | PDOC ---
RITA CENTENO [employer] 12/22/20 0920: SURGICAL PROGRESS NOTE DATE: 12/22/20 TIME: 09:18 Subjective resting very sore this AM no flatus Vital Signs Vital Signs Date Time Temp Pulse Resp B/P (MAP) Pulse Ox O2 Delivery O2 Flow Rate FiO2 12/22/20 07:00 98.6 84 20 155/107 (123) 97 Nasal Cannula 2.0 98.6 I&O Intake and Output 12/22/20 07:00 Intake Total 3900 ml Output Total 2490 ml Balance 1410 ml Intake Oral 100 ml IV Total 3800 ml Output Urine Total 2100 ml Drainage Total 340 ml Estimated Blood Loss 50 ml General: Alert, Cooperative Abdomen: Soft, Other (drain serosang, cloudy) Labs Laboratory Tests Test 12/20/20 10:40 12/20/20 10:46 12/20/20 12:05 12/20/20 13:05 White Blood Count 12.1 x10^3/uL (4.0-11.0) Red Blood Count 4.69 x10^6/uL (4.30-5.70) Hemoglobin 12.9 g/dL (13.0-17.5) Hematocrit 40.3 % (39.0-53.0) Mean Corpuscular Volume 86 fL (79-100) Mean Corpuscular Hemoglobin 28 pg (25-35) Mean Corpuscular Hemoglobin Concent 32 g/dL (31-37) Red Cell Distribution Width 13.9 % (11.5-14.5) Platelet Count 220 x10^3/uL (140-400) Neutrophils (%) (Auto) 96 % (31-73) Lymphocytes (%) (Auto) 2 % (24-48) Monocytes (%) (Auto) 2 % (0-9) Eosinophils (%) (Auto) 0 % (0-3) Basophils (%) (Auto) 0 % (0-3) Neutrophils # (Auto) 11.6 x10^3/uL (1.8-7.7) Lymphocytes # (Auto) 0.3 x10^3/uL (1.0-4.8) Monocytes # (Auto) 0.2 x10^3/uL (0.0-1.1) Eosinophils # (Auto) 0.0 x10^3/uL (0.0-0.7) Basophils # (Auto) 0.0 x10^3/uL (0.0-0.2) Segmented Neutrophils % 80 % (35-66) Band Neutrophils % 15 % (0-9) Lymphocytes % 5 % (24-48) Platelet Estimate Adequate (ADEQUATE) Giant Platelets Occ Sodium Level 139 mmol/L (136-145) Potassium Level 3.6 mmol/L (3.5-5.1) Chloride Level 102 mmol/L (98-107) Carbon Dioxide Level 25 mmol/L (21-32) Anion Gap 12 (6-14) Blood Urea Nitrogen 12 mg/dL (8-26) Creatinine 1.8 mg/dL (0.7-1.3) Estimated GFR (Cockcroft-Gault) 47.0 BUN/Creatinine Ratio 7 (6-20) Glucose Level 87 mg/dL (70-99) Calcium Level 8.4 mg/dL (8.5-10.1) Magnesium Level 1.5 mg/dL (1.8-2.4) Total Bilirubin 1.6 mg/dL (0.2-1.0) Aspartate Amino Transf (AST/SGOT) 30 U/L (15-37) Alanine Aminotransferase (ALT/SGPT) 20 U/L (16-63) Alkaline Phosphatase 69 U/L (46-116) Total Protein 5.6 g/dL (6.4-8.2) Albumin 2.8 g/dL (3.4-5.0) Albumin/Globulin Ratio 1.0 (1.0-1.7) Lipase 83 U/L (73-393) Lactic Acid Level 2.8 mmol/L (0.4-2.0) Urine Collection Type Unknown Urine Color Yellow Urine Clarity Clear Urine pH 8.5 (<5.0-8.0) Urine Specific [place] 1.015 (1.000-1.030) Urine Protein Negative mg/dL (NEG-TRACE) Urine Glucose (UA) Negative mg/dL (NEG) Urine Ketones (Stick) Trace mg/dL (NEG) Urine Blood Negative (NEG) Urine Nitrite Negative (NEG) Urine Bilirubin Negative (NEG) Urine Urobilinogen Dipstick 1.0 mg/dL (0.2 mg/dL) Urine Leukocyte Esterase Negative (NEG) Urine RBC Occ /HPF (0-2) Urine WBC 1-4 /HPF (0-4) Urine Squamous Epithelial Cells Occ /LPF Urine Bacteria Few /HPF (0-FEW) Urine Mucus Slight /LPF Coronavirus (PCR) Not detected (Not Detected) SARS-CoV-2 Antigen (Rapid) Negative (NEGATIVE) Test 12/20/20 15:15 12/21/20 03:30 12/22/20 06:15 Lactic Acid Level 3.4 mmol/L (0.4-2.0) White Blood Count 13.2 x10^3/uL (4.0-11.0) 17.4 x10^3/uL (4.0-11.0) Red Blood Count 4.28 x10^6/uL (4.30-5.70) 4.21 x10^6/uL (4.30-5.70) Hemoglobin 12.1 g/dL (13.0-17.5) 11.6 g/dL (13.0-17.5) Hematocrit 36.6 % (39.0-53.0) 35.7 % (39.0-53.0) Mean Corpuscular Volume 86 fL (79-100) 85 fL (79-100) Mean Corpuscular Hemoglobin 28 pg (25-35) 28 pg (25-35) Mean Corpuscular Hemoglobin Concent 33 g/dL (31-37) 33 g/dL (31-37) Red Cell Distribution Width 14.3 % (11.5-14.5) 14.2 % (11.5-14.5) Platelet Count 194 x10^3/uL (140-400) 219 x10^3/uL (140-400) Neutrophils (%) (Auto) 92 % (31-73) 91 % (31-73) Lymphocytes (%) (Auto) 4 % (24-48) 3 % (24-48) Monocytes (%) (Auto) 4 % (0-9) 5 % (0-9) Eosinophils (%) (Auto) 0 % (0-3) 2 % (0-3) Basophils (%) (Auto) 0 % (0-3) 0 % (0-3) Neutrophils # (Auto) 12.1 x10^3/uL (1.8-7.7) 15.8 x10^3/uL (1.8-7.7) Lymphocytes # (Auto) 0.5 x10^3/uL (1.0-4.8) 0.5 x10^3/uL (1.0-4.8) Monocytes # (Auto) 0.5 x10^3/uL (0.0-1.1) 0.8 x10^3/uL (0.0-1.1) Eosinophils # (Auto) 0.0 x10^3/uL (0.0-0.7) 0.3 x10^3/uL (0.0-0.7) Basophils # (Auto) 0.0 x10^3/uL (0.0-0.2) 0.0 x10^3/uL (0.0-0.2) Sodium Level 135 mmol/L (136-145) 137 mmol/L (136-145) Potassium Level 3.3 mmol/L (3.5-5.1) 4.3 mmol/L (3.5-5.1) Chloride Level 102 mmol/L (98-107) 105 mmol/L (98-107) Carbon Dioxide Level 25 mmol/L (21-32) 24 mmol/L (21-32) Anion Gap 8 (6-14) 8 (6-14) Blood Urea Nitrogen 16 mg/dL (8-26) 14 mg/dL (8-26) Creatinine 1.8 mg/dL (0.7-1.3) 1.3 mg/dL (0.7-1.3) Estimated GFR (Cockcroft-Gault) 47.0 68.4 BUN/Creatinine Ratio 9 (6-20) 11 (6-20) Glucose Level 74 mg/dL (70-99) 103 mg/dL (70-99) Calcium Level 8.0 mg/dL (8.5-10.1) 8.3 mg/dL (8.5-10.1) Magnesium Level 1.9 mg/dL (1.8-2.4) Total Bilirubin 1.7 mg/dL (0.2-1.0) 1.0 mg/dL (0.2-1.0) Aspartate Amino Transf (AST/SGOT) 35 U/L (15-37) 34 U/L (15-37) Alanine Aminotransferase (ALT/SGPT) 20 U/L (16-63) 19 U/L (16-63) Alkaline Phosphatase 57 U/L (46-116) 67 U/L (46-116) Total Protein 5.5 g/dL (6.4-8.2) 5.8 g/dL (6.4-8.2) Albumin 2.2 g/dL (3.4-5.0) 1.8 g/dL (3.4-5.0) Albumin/Globulin Ratio 0.7 (1.0-1.7) 0.5 (1.0-1.7) Laboratory Tests Test 12/22/20 06:15 White Blood Count 17.4 x10^3/uL (4.0-11.0) Red Blood Count 4.21 x10^6/uL (4.30-5.70) Hemoglobin 11.6 g/dL (13.0-17.5) Hematocrit 35.7 % (39.0-53.0) Mean Corpuscular Volume 85 fL (79-100) Mean Corpuscular Hemoglobin 28 pg (25-35) Mean Corpuscular Hemoglobin Concent 33 g/dL (31-37) Red Cell Distribution Width 14.2 % (11.5-14.5) Platelet Count 219 x10^3/uL (140-400) Neutrophils (%) (Auto) 91 % (31-73) Lymphocytes (%) (Auto) 3 % (24-48) Monocytes (%) (Auto) 5 % (0-9) Eosinophils (%) (Auto) 2 % (0-3) Basophils (%) (Auto) 0 % (0-3) Neutrophils # (Auto) 15.8 x10^3/uL (1.8-7.7) Lymphocytes # (Auto) 0.5 x10^3/uL (1.0-4.8) Monocytes # (Auto) 0.8 x10^3/uL (0.0-1.1) Eosinophils # (Auto) 0.3 x10^3/uL (0.0-0.7) Basophils # (Auto) 0.0 x10^3/uL (0.0-0.2) Sodium Level 137 mmol/L (136-145) Potassium Level 4.3 mmol/L (3.5-5.1) Chloride Level 105 mmol/L (98-107) Carbon Dioxide Level 24 mmol/L (21-32) Anion Gap 8 (6-14) Blood Urea Nitrogen 14 mg/dL (8-26) Creatinine 1.3 mg/dL (0.7-1.3) Estimated GFR (Cockcroft-Gault) 68.4 BUN/Creatinine Ratio 11 (6-20) Glucose Level 103 mg/dL (70-99) Calcium Level 8.3 mg/dL (8.5-10.1) Total Bilirubin 1.0 mg/dL (0.2-1.0) Aspartate Amino Transf (AST/SGOT) 34 U/L (15-37) Alanine Aminotransferase (ALT/SGPT) 19 U/L (16-63) Alkaline Phosphatase 67 U/L (46-116) Total Protein 5.8 g/dL (6.4-8.2) Albumin 1.8 g/dL (3.4-5.0) Albumin/Globulin Ratio 0.5 (1.0-1.7) Problem List Problems Medical Problems: (1) Hypomagnesemia Status: Acute (2) Perforated appendicitis Status: Acute Assessment/Plan s/p open appy, perf continue drain, abx bowel rest Justicifation of Admission Dx: Justifications for Admission: Justification of Admission Dx: Comment: (Perforated appendicitis) YOMAIRA CASTILLO MD 12/22/20 1027: SURGICAL PROGRESS NOTE Assessment/Plan Agree with above; will take time given severity of abdominal sepsis RITA CENTENO APRN Dec 22, 2020 09:20 YOMAIRA CASTILLO MD Dec 22, 2020 10:27
--- NOTE | 2020-12-22 10:11 | NUR ---
SW following. Discussed with RN, pt from home alone, 2L (does not use at home), NPO, drain, bowel rest, abx, COVID-19 negative. Pt had surgery yesterday (12/21/20). Awaiting return of bowel function. RN advised no SW needs at this time. SW will continue to follow.
[2020-12-22 11:00] VITALS: BP 130/84
--- NOTE | 2020-12-22 14:09 | PDOC ---
[facility] PROGRESS NOTE Date of Service DOS: DATE: 12/22/20 TIME: 14:07 Chief Complaint Chief Complaint Perforated appendicitis - abscess presence unclear, will f/u renal function to obtain CT with contrast vs US. NPO, IV pain control. Zosyn q6hrs. 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 [employer] Sepsis - due to perforated diverticulitis - given empiric IVF and zosyn ALYSIA - likely vasomotor nephropathy given poor PO intake, continue IV fluid resuscitation, creatinine seems to be at baseline since no changes have been n oted although it could be compromised due to his underlying infectious process Pelvic fluid collection - between seminal vesicles and rectum, possibly abscess, will repeat labs and try CT with contrast if renal function improves Elevated PSA - noted outpatient Bilateral hip osteoarthrosis - noted on CT Hypomagnesemia - Replace IV Elevated bilirubin - will monitor Moderate protein calorie malnutrition - will start on IV nutrition FEN - NPO, NSS, procalamine PPX - heparin FULL CODE Dispo - inpatient for above, negative rapid covid19, continue IV antibiotics and bowel rest, will defer to surgery for further surgical decision making History of Present Illness History of Present Illness Mr Rosales is a 60 year old male w/ PMHx HLD and recent elevated PSA of 13 who presented to ER due to intractable abdominal pain for the past 24 hours. He and his brother, bedside, note that his symptoms have been going on for a week intermittently and 5 days ago he felt his pain suddenly improve and then intermittently with cramping pain with eating for the past 3 days prior to presentation, but on 12/19/2020 it got significantly worse overnight and became constant, sharp in his RLQ with associated chills without fever. He is thirsty but has not been able to eat or drink without nausea, now has no appetite. He notes his urine output has dropped the last few days, but thought it was his prostate as a few months ago he had his PSA elevated. Patient denies any cough or chest pain or any trouble breathing. In ED noted to be tachycardic 100 bpm and febrile to 100.[address] abdomen/pelvis elongated masslike structure in the right lower quadrant with surrounding fat stranding suspicious for ruptured appendicitis with phlegmon or complex abscess. WBC 12.1, Hb 12.9, platelets 220, Na 139, K 3.6, BUN 12, Cr 1.8, glucose 87, Mg 1.5, lactic acid 2.8, Bilirubin 1.6, Albumin 2.8. Admitted for further care. 12/21: Patient with fever overnight and chills. Still having abdominal discomfort somewhat improved compared to admission. Discussed with surgical instruments inspector. He may need surgery later in the day 12/22/2020 No acute events overnight. White count trending upwards. No fevers reported in the past 24 hours. Pain is controlled. Incision sites appears to be intact. D ressings are clear dry and intact. Vitals/I&O Vitals/I&O: Vital Signs Date Time Temp Pulse Resp B/P (MAP) Pulse Ox O2 Delivery O2 Flow Rate FiO2 12/22/20 11:00 98.6 85 19 130/84 (99) 95 Nasal Cannula 2.0 98.6 I & O 12/21/20 12/21/20 12/22/20 15:00 23:00 07:00 Intake Total 2050 ml 700 ml 1150 ml Output Total 400 ml 620 ml 1470 ml Balance 1650 ml 80 ml -320 ml Physical Exam General: Alert, Cooperative Heart: Regular rate, Normal S1, Normal S2, No murmurs Lungs: Clear Abdomen: Soft, Other (drain serosang, cloudy) Extremities: No clubbing, No cyanosis, No edema, Normal pulses, No tenderness/swelling Skin: No rashes, No breakdown, No significant lesion Labs Labs: Laboratory Tests Test 12/22/20 06:15 White Blood Count 17.4 x10^3/uL (4.0-11.0) Red Blood Count 4.21 x10^6/uL (4.30-5.70) Hemoglobin 11.6 g/dL (13.0-17.5) Hematocrit 35.7 % (39.0-53.0) Mean Corpuscular Volume 85 fL (79-100) Mean Corpuscular Hemoglobin 28 pg (25-35) Mean Corpuscular Hemoglobin Concent 33 g/dL (31-37) Red Cell Distribution Width 14.2 % (11.5-14.5) Platelet Count 219 x10^3/uL (140-400) Neutrophils (%) (Auto) 91 % (31-73) Lymphocytes (%) (Auto) 3 % (24-48) Monocytes (%) (Auto) 5 % (0-9) Eosinophils (%) (Auto) 2 % (0-3) Basophils (%) (Auto) 0 % (0-3) Neutrophils # (Auto) 15.8 x10^3/uL (1.8-7.7) Lymphocytes # (Auto) 0.5 x10^3/uL (1.0-4.8) Monocytes # (Auto) 0.8 x10^3/uL (0.0-1.1) Eosinophils # (Auto) 0.3 x10^3/uL (0.0-0.7) Basophils # (Auto) 0.0 x10^3/uL (0.0-0.2) Sodium Level 137 mmol/L (136-145) Potassium Level 4.3 mmol/L (3.5-5.1) Chloride Level 105 mmol/L (98-107) Carbon Dioxide Level 24 mmol/L (21-32) Anion Gap 8 (6-14) Blood Urea Nitrogen 14 mg/dL (8-26) Creatinine 1.3 mg/dL (0.7-1.3) Estimated GFR (Cockcroft-Gault) 68.4 BUN/Creatinine Ratio 11 (6-20) Glucose Level 103 mg/dL (70-99) Calcium Level 8.3 mg/dL (8.5-10.1) Total Bilirubin 1.0 mg/dL (0.2-1.0) Aspartate Amino Transf (AST/SGOT) 34 U/L (15-37) Alanine Aminotransferase (ALT/SGPT) 19 U/L (16-63) Alkaline Phosphatase 67 U/L (46-116) Total Protein 5.8 g/dL (6.4-8.2) Albumin 1.8 g/dL (3.4-5.0) Albumin/Globulin Ratio 0.5 (1.0-1.7) Assessment and Plan Assessmemt and Plan Problems Medical Problems: (1) Hypomagnesemia Status: Acute (2) Perforated appendicitis Status: Acute Comment Review of Relevant I have reviewed the following items demetra (where applicable) has been applied. Justifications for Admission Other Justification MARY PARMAR MD Dec 22, 2020 14:09
[2020-12-22 15:00] VITALS: BP 110/75
[2020-12-22] MEDS: IV NORMAL SALINE 1000ML BAG 1,000 ML IV SCH (18:01)
[2020-12-22 19:00] VITALS: BP 98/60
[2020-12-22 23:00] VITALS: BP 113/66
[2020-12-23 03:00] VITALS: BP 108/72
[2020-12-23] MEDS: PIPERACILLIN/TAZOBACTAM 3.375 GM in IV NORMAL SALINE 50ML 50 ML IV SCH ×4 (05:20→23:41)
[2020-12-23] MEDS: AMINO AC 3%/ELECTROLYTE/GLYCER 1,000 ML IV SCH ×2 (05:31→17:14)
[2020-12-23 07:00] VITALS: BP 110/69
[2020-12-23 08:18] LABS: BASO % 0 % (0-3); EOS # 0.1 x10^3/uL (0.0-0.7); EOS % 1 % (0-3); HEMATOCRIT 35.6 % (39.0-53.0); HEMOGLOBIN 11.6 g/dL (13.0-17.5); LYMPH # 0.8 x10^3/uL (1.0-4.8); LYMPH % 4 % (24-48); MEAN CORPUSCULAR HEMOGLOBIN 28 pg (25-35); MEAN CORPUSCULAR HGB CONC 32 g/dL (31-37); MEAN CORPUSCULAR VOLUME 85 fL (79-100); MONO # 0.8 x10^3/uL (0.0-1.1); MONO % 5 % (0-9); NEUT # 16.3 x10^3/uL (1.8-7.7); NEUT % 90 % (31-73); PLATELET COUNT 251 x10^3/uL (140-400); RED BLOOD COUNT 4.18 x10^6/uL (4.30-5.70); RED CELL DISTRIBUTION WIDTH 14.2 % (11.5-14.5)
[2020-12-23 08:33] LABS: ALBUMIN 1.8 g/dL (3.4-5.0); ALBUMIN/GLOBULIN RATIO 0.4 (1.0-1.7); CALCIUM 8.5 mg/dL (8.5-10.1); GFR 92.5; POTASSIUM 3.6 mmol/L (3.5-5.1); TOTAL BILIRUBIN 0.7 mg/dL (0.2-1.0); TOTAL PROTEIN 5.9 g/dL (6.4-8.2)
--- NOTE | 2020-12-23 08:44 | PDOC ---
PROGRESS NOTES Date of Service: DATE: 12/23/20 TIME: 08:44 Chief Complaint Chief Complaint impression Perforated appendicitis - abscess presence unclear, will f/u renal function to obtain CT with contrast vs US. NPO, IV pain control. Zosyn q6hrs. 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 [employer] Sepsis - due to perforated diverticulitis - given empiric IVF and zosyn ALYSIA - likely vasomotor nephropathy given poor PO intake, continue IV fluid resuscitation, creatinine seems to be at baseline since no changes have been noted although it could be compromised due to his underlying infectious process Pelvic fluid collection - between seminal vesicles and rectum, possibly abscess, will repeat labs and try CT with contrast if renal function improves Elevated PSA - noted outpatient Bilateral hip osteoarthrosis - noted on CT Hypomagnesemia - Replace IV Elevated bilirubin - will monitor Moderate protein calorie malnutrition - will start on IV nutrition FEN - NPO, NSS, procalamine PPX - heparin FULL CODE Dispo - inpatient for above, negative rapid covid19, continue IV antibiotics and bowel rest, will defer to surgery for further surgical decision making Procedure: Laparoscopic converted to open appendectomy, drainage of abdominal abscesses 12-20-2012-23 bowel function slow to return D/W RN History of Present Illness History of Present Illness Mr Rosales is a 60 year old male w/ PMHx HLD and recent elevated PSA of 13 who presented to ER due to intractable abdominal pain for the past 24 hours. He and his brother, bedside, note that his symptoms have been going on for a week intermittently and 5 days ago he felt his pain suddenly improve and then intermittently with cramping pain with eating for the past 3 days prior to presentation, but on 12/19/2020 it got significantly worse overnight and became constant, sharp in his RLQ with associated chills without fever. He is thirsty but has not been able to eat or drink without nausea, now has no appetite. He notes his urine output has dropped the last few days, but thought it was his prostate as a few months ago he had his PSA elevated. Patient denies any cough or chest pain or any trouble breathing. In ED noted to be tachycardic 100 bpm and febrile to 100.[address] abdomen/pelvis elongated masslike structure in the right lower quadrant with surrounding fat stranding suspicious for ruptured appendicitis with phlegmon or complex abscess. WBC 12.1, Hb 12.9, platelets 220, Na 139, K 3.6, BUN 12, Cr 1.8, glucose 87, Mg 1.5, lactic acid 2.8, Bilirubin 1.6, Albumin 2.8. Admitted for further care. 12/21: Patient with fever overnight and chills. Still having abdominal discomfort somewhat improved compared to admission. Discussed with surgical services coordinator. He may need surgery later in the day 12/22/2020 No acute events overnight. White count trending upwards. No fevers reported in the past 24 hours. Pain is controlled. Incision sites appears to be intact. Dressings are clear dry and intact. 12/23 d/w rn Pain is controlled. Incision sites appears to be intact. Dressings are clear dry and intact. Vitals Vitals Vital Signs Date Time Temp Pulse Resp B/P (MAP) Pulse Ox O2 Delivery O2 Flow Rate FiO2 12/23/20 05:00 22 Nasal Cannula 2.0 12/23/20 03:00 98.0 72 108/72 (84) 98 98.0 Physical Exam General: Alert, Oriented X3, Cooperative, mild distress Heart: Regular rate, Normal S1, Normal S2, No murmurs Lungs: Clear Abdomen: Soft, Other (drain serosang, cloudy) Extremities: No clubbing, No cyanosis, No edema, Normal pulses, No tenderness/swelling Skin: No rashes, No breakdown, No significant lesion Labs LABS Comparison: None Technique: Helical CT imaging performed of the abdomen and pelvis without the use of intravenous contrast. Sagittal and coronal reformats were obtained. One or more of the following individualized dose reduction techniques were utilized for this examination: 1. Automated exposure control 2. Adjustment of the mA and/or kV according to patient size 3. Use of iterative reconstruction technique. Findings: Inherently limited evaluation without intravenous contrast. Lower chest: Lung bases are clear. The heart is normal in size. Liver: Normal. Gallbladder/Biliary Tree: Normal. Pancreas: Normal. Spleen: Normal. Adrenal Glands: Normal. Kidneys/Ureters/Bladder: Kidneys and this is portion ureters are normal. Distal right ureter is obscured. Bladder is normal. Reproductive Organs: Prostate gland is enlarged. Stomach, small bowel, and colon: There is a elongated masslike structure in the right lower quadrant extending into the pelvis, measuring at least 6.7 x 4.3 x 5.3 cm. There is extrinsic the cecum is in the expected location of the rina endix, which is not discretely visualized. The masslike structure has soft tissue density and surrounding fat stranding. At the distal aspect of the structure there is a lower density collection measuring 3.9 x 1.6 cm that may be fluid collection between a small vesicles and rectum. Wall thickening in the sigmoid colon and rectum is likely reactive. The rest of the colon is normal. Small bowel is normal. Stomach is unremarkable. Vasculature: Abdominal aorta is normal in caliber. Mild calcified atherosclero sis. Lymph Nodes: There are enlarged ileocolic lymph nodes measuring up to 1 cm short axis. Enlarged right external iliac chain lymph nodes measuring up to 9 mm short axis. Peritoneum and retroperitoneum: No free air. Bones: There is moderate to severe disc space narrowing at L5-S1. Severe right and moderate left hip osteoarthrosis. Impression: Elongated masslike structure in the right lower quadrant with surrounding fat stranding suspicious for ruptured appendicitis with phlegmon or complex abscess. Differential diagnosis would be an appendiceal mass. There is an adjacent 4 cm lower density collection between the seminal vesicles and rectum that may be continuous with this or a separate fluid collection. CT with IV and oral contrast may be useful to further evaluate if clinically indicated. Results discussed by Dr. Jarrett with Dr. Jain at 1:00 PM on 12/20/2020. Electronically signed by: Viki Jarrett MD (12/20/2020 1:26 PM) [id number] DICTATED and SIGNED BY: VIKI JARRETT MD DATE: 12/20/20 [id number] 0 Operative Note Operative Note Operative Note Operative Note: Preoperative Diagnosis: Perforated appendicitis Postoperative Diagnosis: Same Procedure: Laparoscopic converted to open appendectomy, drainage of abdominal abscesses Surgeon: Paulo Glove Former: Estefany Kohler Anesthesia: General EBL: 50 mL Specimen: Appendix to pathology Drains: 19 Faroese ROSETTA drain to lower abdomen Complications: None Indication: The patient is a 60-year-old male who reported to the hospital with abdominal pain. Laboratory Tests Test 12/23/20 07:55 Sodium Level 135 mmol/L (136-145) Potassium Level 3.6 mmol/L (3.5-5.1) Chloride Level 101 mmol/L (98-107) Carbon Dioxide Level 25 mmol/L (21-32) Anion Gap 9 (6-14) Blood Urea Nitrogen 16 mg/dL (8-26) Creatinine 1.0 mg/dL (0.7-1.3) Estimated GFR (Cockcroft-Gault) 92.5 BUN/Creatinine Ratio 16 (6-20) Glucose Level 91 mg/dL (70-99) Calcium Level 8.5 mg/dL (8.5-10.1) Total Bilirubin 0.7 mg/dL (0.2-1.0) Aspartate Amino Transf (AST/SGOT) 30 U/L (15-37) Alanine Aminotransferase (ALT/SGPT) 23 U/L (16-63) Alkaline Phosphatase 74 U/L (46-116) Total Protein 5.9 g/dL (6.4-8.2) Albumin 1.8 g/dL (3.4-5.0) Albumin/Globulin Ratio 0.4 (1.0-1.7) Assessment and Plan Assessmemt and Plan Problems Medical Problems: (1) Hypomagnesemia Status: Acute (2) Perforated appendicitis Status: Acute Comment Review of Relevant I have reviewed the following items demetra (where applicable) has been applied. Labs Laboratory Tests Test 12/22/20 06:15 12/23/20 07:55 White Blood Count 17.4 x10^3/uL (4.0-11.0) Red Blood Count 4.21 x10^6/uL (4.30-5.70) Hemoglobin 11.6 g/dL (13.0-17.5) Hematocrit 35.7 % (39.0-53.0) Mean Corpuscular Volume 85 fL (79-100) Mean Corpuscular Hemoglobin 28 pg (25-35) Mean Corpuscular Hemoglobin Concent 33 g/dL (31-37) Red Cell Distribution Width 14.2 % (11.5-14.5) Platelet Count 219 x10^3/uL (140-400) Neutrophils (%) (Auto) 91 % (31-73) Lymphocytes (%) (Auto) 3 % (24-48) Monocytes (%) (Auto) 5 % (0-9) Eosinophils (%) (Auto) 2 % (0-3) Basophils (%) (Auto) 0 % (0-3) Neutrophils # (Auto) 15.8 x10^3/uL (1.8-7.7) Lymphocytes # (Auto) 0.5 x10^3/uL (1.0-4.8) Monocytes # (Auto) 0.8 x10^3/uL (0.0-1.1) Eosinophils # (Auto) 0.3 x10^3/uL (0.0-0.7) Basophils # (Auto) 0.0 x10^3/uL (0.0-0.2) Sodium Level 137 mmol/L (136-145) 135 mmol/L (136-145) Potassium Level 4.3 mmol/L (3.5-5.1) 3.6 mmol/L (3.5-5.1) Chloride Level 105 mmol/L (98-107) 101 mmol/L (98-107) Carbon Dioxide Level 24 mmol/L (21-32) 25 mmol/L (21-32) Anion Gap 8 (6-14) 9 (6-14) Blood Urea Nitrogen 14 mg/dL (8-26) 16 mg/dL (8-26) Creatinine 1.3 mg/dL (0.7-1.3) 1.0 mg/dL (0.7-1.3) Estimated GFR (Cockcroft-Gault) 68.4 92.5 BUN/Creatinine Ratio 11 (6-20) 16 (6-20) Glucose Level 103 mg/dL (70-99) 91 mg/dL (70-99) Calcium Level 8.3 mg/dL (8.5-10.1) 8.5 mg/dL (8.5-10.1) Total Bilirubin 1.0 mg/dL (0.2-1.0) 0.7 mg/dL (0.2-1.0) Aspartate Amino Transf (AST/SGOT) 34 U/L (15-37) 30 U/L (15-37) Alanine Aminotransferase (ALT/SGPT) 19 U/L (16-63) 23 U/L (16-63) Alkaline Phosphatase 67 U/L (46-116) 74 U/L (46-116) Total Protein 5.8 g/dL (6.4-8.2) 5.9 g/dL (6.4-8.2) Albumin 1.8 g/dL (3.4-5.0) 1.8 g/dL (3.4-5.0) Albumin/Globulin Ratio 0.5 (1.0-1.7) 0.4 (1.0-1.7) Laboratory Tests Test 12/23/20 07:55 Sodium Level 135 mmol/L (136-145) Potassium Level 3.6 mmol/L (3.5-5.1) Chloride Level 101 mmol/L (98-107) Carbon Dioxide Level 25 mmol/L (21-32) Anion Gap 9 (6-14) Blood Urea Nitrogen 16 mg/dL (8-26) Creatinine 1.0 mg/dL (0.7-1.3) Estimated GFR (Cockcroft-Gault) 92.5 BUN/Creatinine Ratio 16 (6-20) Glucose Level 91 mg/dL (70-99) Calcium Level 8.5 mg/dL (8.5-10.1) Total Bilirubin 0.7 mg/dL (0.2-1.0) Aspartate Amino Transf (AST/SGOT) 30 U/L (15-37) Alanine Aminotransferase (ALT/SGPT) 23 U/L (16-63) Alkaline Phosphatase 74 U/L (46-116) Total Protein 5.9 g/dL (6.4-8.2) Albumin 1.8 g/dL (3.4-5.0) Albumin/Globulin Ratio 0.4 (1.0-1.7) Microbiology 12/20/20 Blood Culture - Preliminary, Resulted NO GROWTH AFTER 2 DAYS Medications Current Medications Sodium Chloride 1,000 ml @ 1,000 mls/hr 1X ONCE IV Last administered on 12/20/20at 11:08; Start 12/20/20 at 11:15; Stop 12/20/20 at 12:14; Status DC Fentanyl Citrate (Fentanyl 2ml Vial) 50 mcg 1X ONCE IVP Last administered on 12/20/20at 12:31; Start 12/20/20 at 12:00; Stop 12/20/20 at 12:01; Status DC Piperacillin Sod/ Tazobactam Sod 3.375 gm/Sodium Chloride 50 ml @ 100 mls/hr 1X ONCE IV Last administered on 12/20/20at 12:15; Start 12/20/20 at 12:00; Stop 12/20/20 at 12:29; Status DC Magnesium Sulfate 50 ml @ 25 mls/hr 1X ONCE IV Last administered on 12/20/20at 12:16; Start 12/20/20 at 12:00; Stop 12/20/20 at 13:59; Status DC Sodium Chloride 1,000 ml @ 1,000 mls/hr 1X ONCE IV Last administered on 12/20/20at 13:16; Start 12/20/20 at 13:15; Stop 12/20/20 at 14:14; Status DC Fentanyl Citrate (Fentanyl 2ml Vial) 75 mcg 1X ONCE IVP Last administered on 12/20/20at 13:26; Start 12/20/20 at 13:45; Stop 12/20/20 at 13:46; Status DC Ondansetron HCl (Zofran) 4 mg PRN Q8HRS PRN IV NAUSEA/VOMITING; Start 12/20/20 at 13:15; Stop 12/20/20 at 13:46; Status DC Fentanyl Citrate (Fentanyl 2ml Vial) 50 mcg PRN Q1HR PRN IV PAIN; Start 12/20/20 at 13:15; Stop 12/21/20 at 13:14; Status DC Sodium Chloride 1,000 ml @ 100 mls/hr Q10H IV Last administered on 12/21/20at 11:05; Start 12/20/20 at 13:15; Stop 12/21/20 at 13:14; Status DC Sodium Chloride 1,000 ml @ 1,000 mls/hr 1X ONCE IV Last administered on 12/20/20at 13:30; Start 12/20/20 at 13:30; Stop 12/20/20 at 14:29; Status DC Piperacillin Sod/ Tazobactam Sod (Zosyn Per Pharmacy) 1 each PRN DAILY PRN MC SEE COMMENTS; Start 12/20/20 at 13:45 Ondansetron HCl (Zofran) 4 mg PRN Q4HRS PRN IV NAUSEA/VOMITING Last administered on 12/23/20at 05:17; Start 12/20/20 at 13:45 Acetaminophen (Tylenol Supp) 650 mg PRN Q4HRS PRN DC TEMP OVER 100.4F OR MILD PAIN Last administered on 12/21/20at 02:20; Start 12/20/20 at 13:45 Olanzapine (ZyPREXA ZYDIS) 5 mg PRN BID PRN PO ANXIETY / AGITATION; Start 12/20/20 at 13:45 Bisacodyl (Dulcolax Supp) 10 mg PRN DAILY PRN DC CONSTIPATION; Start 12/20/20 at 13:45 Heparin Sodium (Porcine) (Heparin Sodium) 5,000 unit BID ONCE SQ Last administered on 12/20/20at 20:08; Start 12/20/20 at 21:00; Stop 12/20/20 at 21:01; Status DC Morphine Sulfate (Morphine Sulfate) 4 mg PRN Q3HRS PRN IV SEVERE PAIN 7-10 Last administered on 12/21/20at 14:34; Start 12/20/20 at 13:45 Piperacillin Sod/ Tazobactam Sod 3.375 gm/Sodium Chloride 50 ml @ 100 mls/hr Q6HRS IV Last administered on 12/23/20at 05:20; Start 12/20/20 at 18:00 Amino Acids/ Glycerin/ Electrolytes 1,000 ml @ 80 mls/hr [id number] IV Last administered on 12/23/20at 05:31; Start 12/20/20 at 15:00 Potassium Chloride (Klor-Con) 40 meq 1X ONCE PO ; Start 12/21/20 at 10:00; Stop 12/21/20 at 10:01; Status DC Magnesium Sulfate/ Dextrose 100 ml @ 100 mls/hr 1X ONCE IV ; Start 12/21/20 at 10:00; Stop 12/21/20 at 10:59; Status DC Fentanyl Citrate (Fentanyl 2ml Vial) 25 mcg PRN Q5MIN PRN IVP MILD PAIN 1-3; Start 12/21/20 at 10:15; Stop 12/22/20 at 10:14; Status DC Fentanyl Citrate (Fentanyl 2ml Vial) 50 mcg PRN Q5MIN PRN IVP MODERATE PAIN 4- 6; Start 12/21/20 at 10:15; Stop 12/22/20 at 10:14; Status DC Morphine Sulfate (Morphine Sulfate) 1 mg PRN Q10MIN PRN IVP SEVERE PAIN 7-10; Start 12/21/20 at 10:15; Stop 12/22/20 at 10:14; Status DC Ringer's Solution 1,000 ml @ 30 mls/hr Q24H IV Last administered on 12/21/20at 14:23; Start 12/21/20 at 10:15; Stop 12/21/20 at 22:14; Status DC Hydromorphone HCl (Dilaudid) 0.5 mg PRN Q10MIN PRN IVP SEVERE PAIN 7-10, 2nd CHOICE; Start 12/21/20 at 10:15; Stop 12/22/20 at 10:14; Status DC Prochlorperazine Edisylate (Compazine) 5 mg PACU PRN PRN IVP NAUSEA, MRX1 Last administered on 12/21/20at 14:34; Start 12/21/20 at 10:15; Stop 12/22/20 at 10:14; Status DC Potassium Chloride/Water 100 ml @ 100 mls/hr Q1H IV Last administered on 12/21/20at 18:05; Start 12/21/20 at 12:00; Stop 12/21/20 at 15:59; Status DC Sevoflurane (Ultane) 90 ml STK-MED ONCE IH ; Start 12/21/20 at 10:52; Stop 12/21/20 at 10:52; Status DC Succinylcholine Chloride (Anectine) 200 mg STK-MED ONCE .ROUTE ; Start 12/21/20 at 10:52; Stop 12/21/20 at 10:52; Status DC Neostigmine Saxis (Neostigmine Methylsulfate) 5 mg STK-MED ONCE .ROUTE ; Start 12/21/20 at 10:52; Stop 12/21/20 at 10:52; Status DC Rocuronium Saxis (Zemuron) 50 mg STK-MED ONCE .ROUTE ; Start 12/21/20 at 10:52; Stop 12/21/20 at 10:52; Status DC Fentanyl Citrate (Fentanyl 2ml Vial) 100 mcg STK-MED ONCE .ROUTE ; Start 12/21/20 at 10:52; Stop 12/21/20 at 10:53; Status DC Midazolam HCl (Versed) 2 mg STK-MED ONCE .ROUTE ; Start 12/21/20 at 10:53; Stop 12/21/20 at 10:53; Status DC Glycopyrrolate (Robinul) 1 mg STK-MED ONCE .ROUTE ; Start 12/21/20 at 10:53; Stop 12/21/20 at 10:53; Status DC Propofol (Diprivan) 200 mg STK-MED ONCE IV ; Start 12/21/20 at 10:53; Stop 12/21/20 at 10:53; Status DC Dexamethasone Sodium Phosphate (Decadron) 4 mg STK-MED ONCE .ROUTE ; Start 12/21/20 at 10:53; Stop 12/21/20 at 10:53; Status DC Ondansetron HCl (Zofran) 4 mg STK-MED ONCE .ROUTE ; Start 12/21/20 at 10:53; Stop 12/21/20 at 10:53; Status DC Lidocaine HCl (Lidocaine Pf 2% Vial) 5 ml STK-MED ONCE .ROUTE ; Start 12/21/20 at 10:53; Stop 12/21/20 at 10:53; Status DC Sodium Chloride 1,000 ml @ 1,000 mls/hr 1X ONCE IV Last administered on 12/21/20at 11:09; Start 12/21/20 at 11:00; Stop 12/21/20 at 11:59; Status DC Bupivacaine HCl/ Epinephrine Bitart (Sensorcain-Epi 0.5% Kit) 30 ml STK-MED ONCE .ROUTE ; Start 12/21/20 at 11:10; Stop 12/21/20 at 11:11; Status DC Sterile Water 10 ml @ As Directed STK-MED ONCE IJ ; Start 12/21/20 at 11:43; Stop 12/21/20 at 11:43; Status DC Ephedrine Sulfate (ePHEDrine PF IN SALINE SYRINGE) 50 mg STK-MED ONCE IV ; Start 12/21/20 at 12:25; Stop 12/21/20 at 12:25; Status DC Phenylephrine HCl (PHENYLEPHRINE in 0.9% NACL PF) 1 mg STK-MED ONCE IV ; Start 12/21/20 at 12:32; Stop 12/21/20 at 12:32; Status DC Fentanyl Citrate (Fentanyl 2ml Vial) 100 mcg STK-MED ONCE .ROUTE ; Start 12/21/20 at 12:49; Stop 12/21/20 at 12:50; Status DC Rocuronium Saxis (Zemuron) 50 mg STK-MED ONCE .ROUTE ; Start 12/21/20 at 12:51; Stop 12/21/20 at 12:51; Status DC Naloxone HCl (Narcan) 0.4 mg PRN Q2MIN PRN IV SEE INSTRUCTIONS; Start 12/21/20 at 14:00 Sodium Chloride 1,000 ml @ 25 mls/hr Q24H IV Last administered on 12/22/20at 18:01; Start 12/21/20 at 14:00 Hydromorphone HCl 30 ml @ 0 mls/hr CONT PRN PRN IV PER PROTOCOL Last administered on 12/21/20at 14:52; Start 12/21/20 at 14:00 Prochlorperazine Edisylate (Compazine) 10 mg STK-MED ONCE .ROUTE ; Start 12/21/20 at 14:17; Stop 12/21/20 at 14:17; Status DC Active Scripts Active Reported Lipitor (Atorvastatin Calcium) 40 Mg Tablet 1 Tab PO QHS Vitals/I & O Vital Sign - Last 24 Hours 12/22/20 12/22/20 12/22/20 12/22/20 11:00 12:00 15:00 16:00 Temp 98.6 98.8 98.6 98.8 Pulse 85 90 Resp 19 18 17 18 B/P (MAP) 130/84 (99) 110/75 (87) Pulse Ox 95 95 O2 Delivery Nasal Cannula Nasal Cannula Nasal Cannula Nasal Cannula O2 Flow Rate 2.0 2.0 2.0 2.0 12/22/20 12/22/20 12/22/20 12/22/20 19:00 20:00 20:00 23:00 Temp 99.2 98.3 99.2 98.3 Pulse 82 86 Resp 18 18 B/P (MAP) 98/60 (73) 113/66 (82) Pulse Ox 94 93 O2 Delivery Nasal Cannula Nasal Cannula Nasal Cannula Nasal Cannula O2 Flow Rate 2.0 2.0 2.0 2.0 12/23/20 12/23/20 12/23/20 00:00 03:00 05:00 Temp 98.0 98.0 Pulse 72 Resp 20 18 22 B/P (MAP) 108/72 (84) Pulse Ox 98 O2 Delivery Nasal Cannula Nasal Cannula Nasal Cannula O2 Flow Rate 2.0 2.0 2.0 Intake and Output 0 12/22/20 12/22/20 12/23/20 15:00 23:00 07:00 Output Total 860 ml 1840 ml 1700 ml Balance -860 ml -1840 ml -1700 ml Justicifation of Admission Dx: Justifications for Admission: Justification of Admission Dx: Comment: (Perforated appendicitis) VALARIE GUZMÁN MD Dec 23, 2020 08:44
--- NOTE | 2020-12-23 09:48 | PDOC ---
RITA CENTENO [employer] SIGNAL TECHNICIAN 12/23/20 0948: SURGICAL PROGRESS NOTE DATE: 12/23/20 TIME: 09:46 Subjective nausea this am no flatus pain slightly improved Vital Signs Vital Signs Date Time Temp Pulse Resp B/P (MAP) Pulse Ox O2 Delivery O2 Flow Rate FiO2 12/23/20 07:00 97.6 75 16 110/69 (83) 95 Nasal Cannula 2.0 97.6 I&O Intake and Output 12/23/20 07:00 Output Total 4400 ml Balance -4400 ml Output Urine Total 4250 ml Drainage Total 150 ml General: Alert, Oriented X3, Cooperative Abdomen: Soft, Other (drain serosang) Labs Laboratory Tests Test 12/22/20 06:15 12/23/20 07:55 White Blood Count 17.4 x10^3/uL (4.0-11.0) 18.0 x10^3/uL (4.0-11.0) Red Blood Count 4.21 x10^6/uL (4.30-5.70) 4.18 x10^6/uL (4.30-5.70) Hemoglobin 11.6 g/dL (13.0-17.5) 11.6 g/dL (13.0-17.5) Hematocrit 35.7 % (39.0-53.0) 35.6 % (39.0-53.0) Mean Corpuscular Volume 85 fL (79-100) 85 fL (79-100) Mean Corpuscular Hemoglobin 28 pg (25-35) 28 pg (25-35) Mean Corpuscular Hemoglobin Concent 33 g/dL (31-37) 32 g/dL (31-37) Red Cell Distribution Width 14.2 % (11.5-14.5) 14.2 % (11.5-14.5) Platelet Count 219 x10^3/uL (140-400) 251 x10^3/uL (140-400) Neutrophils (%) (Auto) 91 % (31-73) 90 % (31-73) Lymphocytes (%) (Auto) 3 % (24-48) 4 % (24-48) Monocytes (%) (Auto) 5 % (0-9) 5 % (0-9) Eosinophils (%) (Auto) 2 % (0-3) 1 % (0-3) Basophils (%) (Auto) 0 % (0-3) 0 % (0-3) Neutrophils # (Auto) 15.8 x10^3/uL (1.8-7.7) 16.3 x10^3/uL (1.8-7.7) Lymphocytes # (Auto) 0.5 x10^3/uL (1.0-4.8) 0.8 x10^3/uL (1.0-4.8) Monocytes # (Auto) 0.8 x10^3/uL (0.0-1.1) 0.8 x10^3/uL (0.0-1.1) Eosinophils # (Auto) 0.3 x10^3/uL (0.0-0.7) 0.1 x10^3/uL (0.0-0.7) Basophils # (Auto) 0.0 x10^3/uL (0.0-0.2) 0.0 x10^3/uL (0.0-0.2) Sodium Level 137 mmol/L (136-145) 135 mmol/L (136-145) Potassium Level 4.3 mmol/L (3.5-5.1) 3.6 mmol/L (3.5-5.1) Chloride Level 105 mmol/L (98-107) 101 mmol/L (98-107) Carbon Dioxide Level 24 mmol/L (21-32) 25 mmol/L (21-32) Anion Gap 8 (6-14) 9 (6-14) Blood Urea Nitrogen 14 mg/dL (8-26) 16 mg/dL (8-26) Creatinine 1.3 mg/dL (0.7-1.3) 1.0 mg/dL (0.7-1.3) Estimated GFR (Cockcroft-Gault) 68.4 92.5 BUN/Creatinine Ratio 11 (6-20) 16 (6-20) Glucose Level 103 mg/dL (70-99) 91 mg/dL (70-99) Calcium Level 8.3 mg/dL (8.5-10.1) 8.5 mg/dL (8.5-10.1) Total Bilirubin 1.0 mg/dL (0.2-1.0) 0.7 mg/dL (0.2-1.0) Aspartate Amino Transf (AST/SGOT) 34 U/L (15-37) 30 U/L (15-37) Alanine Aminotransferase (ALT/SGPT) 19 U/L (16-63) 23 U/L (16-63) Alkaline Phosphatase 67 U/L (46-116) 74 U/L (46-116) Total Protein 5.8 g/dL (6.4-8.2) 5.9 g/dL (6.4-8.2) Albumin 1.8 g/dL (3.4-5.0) 1.8 g/dL (3.4-5.0) Albumin/Globulin Ratio 0.5 (1.0-1.7) 0.4 (1.0-1.7) Laboratory Tests Test 12/23/20 07:55 White Blood Count 18.0 x10^3/uL (4.0-11.0) Red Blood Count 4.18 x10^6/uL (4.30-5.70) Hemoglobin 11.6 g/dL (13.0-17.5) Hematocrit 35.6 % (39.0-53.0) Mean Corpuscular Volume 85 fL (79-100) Mean Corpuscular Hemoglobin 28 pg (25-35) Mean Corpuscular Hemoglobin Concent 32 g/dL (31-37) Red Cell Distribution Width 14.2 % (11.5-14.5) Platelet Count 251 x10^3/uL (140-400) Neutrophils (%) (Auto) 90 % (31-73) Lymphocytes (%) (Auto) 4 % (24-48) Monocytes (%) (Auto) 5 % (0-9) Eosinophils (%) (Auto) 1 % (0-3) Basophils (%) (Auto) 0 % (0-3) Neutrophils # (Auto) 16.3 x10^3/uL (1.8-7.7) Lymphocytes # (Auto) 0.8 x10^3/uL (1.0-4.8) Monocytes # (Auto) 0.8 x10^3/uL (0.0-1.1) Eosinophils # (Auto) 0.1 x10^3/uL (0.0-0.7) Basophils # (Auto) 0.0 x10^3/uL (0.0-0.2) Sodium Level 135 mmol/L (136-145) Potassium Level 3.6 mmol/L (3.5-5.1) Chloride Level 101 mmol/L (98-107) Carbon Dioxide Level 25 mmol/L (21-32) Anion Gap 9 (6-14) Blood Urea Nitrogen 16 mg/dL (8-26) Creatinine 1.0 mg/dL (0.7-1.3) Estimated GFR (Cockcroft-Gault) 92.5 BUN/Creatinine Ratio 16 (6-20) Glucose Level 91 mg/dL (70-99) Calcium Level 8.5 mg/dL (8.5-10.1) Total Bilirubin 0.7 mg/dL (0.2-1.0) Aspartate Amino Transf (AST/SGOT) 30 U/L (15-37) Alanine Aminotransferase (ALT/SGPT) 23 U/L (16-63) Alkaline Phosphatase 74 U/L (46-116) Total Protein 5.9 g/dL (6.4-8.2) Albumin 1.8 g/dL (3.4-5.0) Albumin/Globulin Ratio 0.4 (1.0-1.7) Problem List Problems Medical Problems: (1) Hypomagnesemia Status: Acute (2) Perforated appendicitis Status: Acute Assessment/Plan await bowel function continue drain abx Justicifation of Admission Dx: Justifications for Admission: Justification of Admission Dx: Comment: (Perforated appendicitis) YOMAIRA CASTILLO MD 12/23/20 1417: SURGICAL PROGRESS NOTE Assessment/Plan Agree with above RITA CENTENO APRN Dec 23, 2020 09:48 YOMAIRA CASTILLO MD Dec 23, 2020 14:17
[2020-12-23 11:00] VITALS: BP 121/71
[2020-12-23 15:00] VITALS: BP 118/75
[2020-12-23] MEDS: ENOXAPARIN 40 MG/0.4 ML SYRINGE. SQ SCH (15:14)
--- NOTE | 2020-12-23 16:54 | NUR ---
SW following for discharge planning. Spoke with RN and reviewed chart. Pt remains NPO and not ready for discharge. Pt is post op day 2. PT/OT ordered today and the recommendation is home with assistance/HH. Pt has [employer]. SW following.
[2020-12-23] MEDS: IV NORMAL SALINE 1000ML BAG 1,000 ML IV SCH (17:15)
[2020-12-23 19:00] VITALS: BP 100/71
[2020-12-23 23:00] VITALS: BP 107/76
[2020-12-24 03:10] VITALS: BP 110/71
[2020-12-24] MEDS: PIPERACILLIN/TAZOBACTAM 3.375 GM in IV NORMAL SALINE 50ML 50 ML IV SCH ×4 (06:21→23:16)
[2020-12-24] MEDS: AMINO AC 3%/ELECTROLYTE/GLYCER 1,000 ML IV SCH ×2 (06:21→20:09)
[2020-12-24 06:23] LABS: BASO % 0 % (0-3); EOS # 0.2 x10^3/uL (0.0-0.7); EOS % 1 % (0-3); HEMATOCRIT 38.3 % (39.0-53.0); HEMOGLOBIN 12.5 g/dL (13.0-17.5); LYMPH % 6 % (24-48); MEAN CORPUSCULAR HEMOGLOBIN 28 pg (25-35); MEAN CORPUSCULAR HGB CONC 33 g/dL (31-37); MEAN CORPUSCULAR VOLUME 85 fL (79-100); MONO # 1.4 x10^3/uL (0.0-1.1); MONO % 8 % (0-9); NEUT # 14.7 x10^3/uL (1.8-7.7); NEUT % 85 % (31-73); PLATELET COUNT 309 x10^3/uL (140-400); RED BLOOD COUNT 4.52 x10^6/uL (4.30-5.70); RED CELL DISTRIBUTION WIDTH 14.3 % (11.5-14.5); WHITE BLOOD COUNT 17.3 x10^3/uL (4.0-11.0)
[2020-12-24 07:00] VITALS: BP 115/75
[2020-12-24 07:12] LABS: ALBUMIN 1.9 g/dL (3.4-5.0); ALBUMIN/GLOBULIN RATIO 0.4 (1.0-1.7); CALCIUM 8.5 mg/dL (8.5-10.1); GFR 92.5; POTASSIUM 3.8 mmol/L (3.5-5.1); TOTAL BILIRUBIN 0.7 mg/dL (0.2-1.0); TOTAL PROTEIN 6.4 g/dL (6.4-8.2)
--- NOTE | 2020-12-24 09:24 | PDOC ---
RITA CENTENO SLIP INJECTOR AND APPLICATOR 12/24/20 0923: SURGICAL PROGRESS NOTE DATE: 12/24/20 TIME: 09:22 Subjective some flatus up to chair yesterday slowly improving Vital Signs Vital Signs Date Time Temp Pulse Resp B/P (MAP) Pulse Ox O2 Delivery O2 Flow Rate FiO2 12/24/20 07:00 97.8 75 18 115/75 (88) 97 Room Air 97.8 12/24/20 04:00 2.0 I&O Intake and Output 12/24/20 07:00 Intake Total 1150 ml Output Total 2695 ml Balance -1545 ml IV Total 1150 ml Output Urine Total 2600 ml Drainage Total 95 ml PATIENT HAS A NELSON: Yes (dc today) General: Alert, Oriented X3, Cooperative Abdomen: Soft, No masses (dressing dry, delvin serosang) Labs Laboratory Tests Test 12/23/20 07:55 12/24/20 05:25 White Blood Count 18.0 x10^3/uL (4.0-11.0) 17.3 x10^3/uL (4.0-11.0) Red Blood Count 4.18 x10^6/uL (4.30-5.70) 4.52 x10^6/uL (4.30-5.70) Hemoglobin 11.6 g/dL (13.0-17.5) 12.5 g/dL (13.0-17.5) Hematocrit 35.6 % (39.0-53.0) 38.3 % (39.0-53.0) Mean Corpuscular Volume 85 fL (79-100) 85 fL (79-100) Mean Corpuscular Hemoglobin 28 pg (25-35) 28 pg (25-35) Mean Corpuscular Hemoglobin Concent 32 g/dL (31-37) 33 g/dL (31-37) Red Cell Distribution Width 14.2 % (11.5-14.5) 14.3 % (11.5-14.5) Platelet Count 251 x10^3/uL (140-400) 309 x10^3/uL (140-400) Neutrophils (%) (Auto) 90 % (31-73) 85 % (31-73) Lymphocytes (%) (Auto) 4 % (24-48) 6 % (24-48) Monocytes (%) (Auto) 5 % (0-9) 8 % (0-9) Eosinophils (%) (Auto) 1 % (0-3) 1 % (0-3) Basophils (%) (Auto) 0 % (0-3) 0 % (0-3) Neutrophils # (Auto) 16.3 x10^3/uL (1.8-7.7) 14.7 x10^3/uL (1.8-7.7) Lymphocytes # (Auto) 0.8 x10^3/uL (1.0-4.8) 1.0 x10^3/uL (1.0-4.8) Monocytes # (Auto) 0.8 x10^3/uL (0.0-1.1) 1.4 x10^3/uL (0.0-1.1) Eosinophils # (Auto) 0.1 x10^3/uL (0.0-0.7) 0.2 x10^3/uL (0.0-0.7) Basophils # (Auto) 0.0 x10^3/uL (0.0-0.2) 0.0 x10^3/uL (0.0-0.2) Sodium Level 135 mmol/L (136-145) 134 mmol/L (136-145) Potassium Level 3.6 mmol/L (3.5-5.1) 3.8 mmol/L (3.5-5.1) Chloride Level 101 mmol/L (98-107) 101 mmol/L (98-107) Carbon Dioxide Level 25 mmol/L (21-32) 26 mmol/L (21-32) Anion Gap 9 (6-14) 7 (6-14) Blood Urea Nitrogen 16 mg/dL (8-26) 16 mg/dL (8-26) Creatinine 1.0 mg/dL (0.7-1.3) 1.0 mg/dL (0.7-1.3) Estimated GFR (Cockcroft-Gault) 92.5 92.5 BUN/Creatinine Ratio 16 (6-20) 16 (6-20) Glucose Level 91 mg/dL (70-99) 77 mg/dL (70-99) Calcium Level 8.5 mg/dL (8.5-10.1) 8.5 mg/dL (8.5-10.1) Total Bilirubin 0.7 mg/dL (0.2-1.0) 0.7 mg/dL (0.2-1.0) Aspartate Amino Transf (AST/SGOT) 30 U/L (15-37) 24 U/L (15-37) Alanine Aminotransferase (ALT/SGPT) 23 U/L (16-63) 25 U/L (16-63) Alkaline Phosphatase 74 U/L (46-116) 104 U/L (46-116) Total Protein 5.9 g/dL (6.4-8.2) 6.4 g/dL (6.4-8.2) Albumin 1.8 g/dL (3.4-5.0) 1.9 g/dL (3.4-5.0) Albumin/Globulin Ratio 0.4 (1.0-1.7) 0.4 (1.0-1.7) Laboratory Tests Test 12/24/20 05:25 White Blood Count 17.3 x10^3/uL (4.0-11.0) Red Blood Count 4.52 x10^6/uL (4.30-5.70) Hemoglobin 12.5 g/dL (13.0-17.5) Hematocrit 38.3 % (39.0-53.0) Mean Corpuscular Volume 85 fL (79-100) Mean Corpuscular Hemoglobin 28 pg (25-35) Mean Corpuscular Hemoglobin Concent 33 g/dL (31-37) Red Cell Distribution Width 14.3 % (11.5-14.5) Platelet Count 309 x10^3/uL (140-400) Neutrophils (%) (Auto) 85 % (31-73) Lymphocytes (%) (Auto) 6 % (24-48) Monocytes (%) (Auto) 8 % (0-9) Eosinophils (%) (Auto) 1 % (0-3) Basophils (%) (Auto) 0 % (0-3) Neutrophils # (Auto) 14.7 x10^3/uL (1.8-7.7) Lymphocytes # (Auto) 1.0 x10^3/uL (1.0-4.8) Monocytes # (Auto) 1.4 x10^3/uL (0.0-1.1) Eosinophils # (Auto) 0.2 x10^3/uL (0.0-0.7) Basophils # (Auto) 0.0 x10^3/uL (0.0-0.2) Sodium Level 134 mmol/L (136-145) Potassium Level 3.8 mmol/L (3.5-5.1) Chloride Level 101 mmol/L (98-107) Carbon Dioxide Level 26 mmol/L (21-32) Anion Gap 7 (6-14) Blood Urea Nitrogen 16 mg/dL (8-26) Creatinine 1.0 mg/dL (0.7-1.3) Estimated GFR (Cockcroft-Gault) 92.5 BUN/Creatinine Ratio 16 (6-20) Glucose Level 77 mg/dL (70-99) Calcium Level 8.5 mg/dL (8.5-10.1) Total Bilirubin 0.7 mg/dL (0.2-1.0) Aspartate Amino Transf (AST/SGOT) 24 U/L (15-37) Alanine Aminotransferase (ALT/SGPT) 25 U/L (16-63) Alkaline Phosphatase 104 U/L (46-116) Total Protein 6.4 g/dL (6.4-8.2) Albumin 1.9 g/dL (3.4-5.0) Albumin/Globulin Ratio 0.4 (1.0-1.7) Problem List Problems Medical Problems: (1) Hypomagnesemia Status: Acute (2) Perforated appendicitis Status: Acute Assessment/Plan continue abx, drains start clears dc nelson increase activity Justicifation of Admission Dx: Justifications for Admission: Justification of Admission Dx: Comment: (Perforated appendicitis) YOMAIRA CASTILLO MD 12/24/20 1158: SURGICAL PROGRESS NOTE Assessment/Plan Agree with above RITA CENTENO APRN Dec 24, 2020 09:23 YOMAIRA CASTILLO MD Dec 24, 2020 11:58
--- NOTE | 2020-12-24 10:57 | NUR ---
SW following. Discussed with RN, pt from home alone, 2L, clear liquid diet, COVID-19 negative, abx, drains. Pt to increase activity. PT/OT recommending home with assistance or home health. Pt has [employer] which will cause a problem with finding home health. SW will continue to follow.
[2020-12-24 11:00] VITALS: BP 115/85
[2020-12-24] MEDS: ENOXAPARIN 40 MG/0.4 ML SYRINGE. SQ SCH (12:30)
--- NOTE | 2020-12-24 13:23 | PDOC ---
[employer] PROGRESS NOTE Date of Service DOS: DATE: 12/24/20 TIME: 13:21 Chief Complaint Chief Complaint impression Perforated appendicitis - abscess presence unclear, will f/u renal function to obtain CT with contrast vs US. NPO, IV pain control. Zosyn q6hrs. 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 Sepsis - due to perforated diverticulitis - given empiric IVF and zosyn ALYSIA - likely vasomotor nephropathy given poor PO intake, continue IV fluid resuscitation, creatinine seems to be at baseline since no changes have been noted although it could be compromised due to his underlying infectious process Pelvic fluid collection - between seminal vesicles and rectum, possibly abscess, will repeat labs and try CT with contrast if renal function improves Elevated PSA - noted outpatient Bilateral hip osteoarthrosis - noted on CT Hypomagnesemia - Replace IV Elevated bilirubin - will monitor Moderate protein calorie malnutrition - will start on IV nutrition FEN -advance to clear liquid diet, procalamine PPX - heparin FULL CODE Dispo - inpatient for above, negative rapid covid19, continue IV antibiotics and bowel rest, will defer to surgery for further surgical decision making Procedure: Laparoscopic converted to open appendectomy, drainage of abdominal abscesses 12-20-2012-23 bowel function slow to return D/W RN History of Present Illness History of Present Illness Mr Rosales is a 60 year old male w/ PMHx HLD and recent elevated PSA of 13 who presented to ER due to intractable abdominal pain for the past 24 hours. He and his brother, maria, note that his symptoms have been going on for a week intermittently and 5 days ago he felt his pain suddenly improve and then intermittently with cramping pain with eating for the past 3 days prior to presentation, but on 12/19/2020 it got significantly worse overnight and became constant, sharp in his RLQ with associated chills without fever. He is thirsty but has not been able to eat or drink without nausea, now has no appetite. He notes his urine output has dropped the last few days, but thought it was his prostate as a few months ago he had his PSA elevated. Patient denies any cough or chest pain or any trouble breathing. In ED noted to be tachycardic 100 bpm and febrile to 100.[address] abdomen/pelvis elongated masslike structure in the right lower quadrant with surrounding fat stranding suspicious for ruptured appendicitis with phlegmon or complex abscess. WBC 12.1, Hb 12.9, platelets 220, Na 139, K 3.6, BUN 12, Cr 1.8, glucose 87, Mg 1.5, lactic acid 2.8, Bilirubin 1.6, Albumin 2.8. Admitted for further care. 12/21: Patient with fever overnight and chills. Still having abdominal discomfort somewhat improved compared to admission. Discussed with surgical services asst. He may need surgery later in the day 12/22/2020 No acute events overnight. White count trending upwards. No fevers reported in the past 24 hours. Pain is controlled. Incision sites appears to be intact. Dressings are clear dry and intact. 12/23 d/w rn Pain is controlled. Incision sites appears to be intact. Dressings are clear dry and intact. 12/24/2020 No acute events overnight. Pain is moderately controlled. Redirected patient to use PRESCHOOL PARAPROFESSIONAL. Patient does endorse flatus. Patient's chart, labs, images were reviewed and discussed with RN Vitals/I&O Vitals/I&O: Vital Signs Date Time Temp Pulse Resp B/P (MAP) Pulse Ox O2 Delivery O2 Flow Rate FiO2 12/24/20 11:00 97.5 90 18 115/85 (95) 97 Nasal Cannula 2.0 97.5 I & O 12/23/20 12/23/20 12/24/20 15:00 23:00 07:00 Intake Total 50 ml 1100 ml Output Total 600 ml 95 ml 2000 ml Balance -600 ml -45 ml -900 ml Physical Exam General: Alert, Oriented X3, Cooperative Heart: Regular rate, Normal S1, Normal S2, No murmurs Lungs: Clear Abdomen: Soft, No masses Extremities: No clubbing, No cyanosis, No edema, Normal pulses, No tenderness/swelling Skin: No rashes, No breakdown, No significant lesion Labs Labs: Laboratory Tests Test 12/24/20 05:25 White Blood Count 17.3 x10^3/uL (4.0-11.0) Red Blood Count 4.52 x10^6/uL (4.30-5.70) Hemoglobin 12.5 g/dL (13.0-17.5) Hematocrit 38.3 % (39.0-53.0) Mean Corpuscular Volume 85 fL (79-100) Mean Corpuscular Hemoglobin 28 pg (25-35) Mean Corpuscular Hemoglobin Concent 33 g/dL (31-37) Red Cell Distribution Width 14.3 % (11.5-14.5) Platelet Count 309 x10^3/uL (140-400) Neutrophils (%) (Auto) 85 % (31-73) Lymphocytes (%) (Auto) 6 % (24-48) Monocytes (%) (Auto) 8 % (0-9) Eosinophils (%) (Auto) 1 % (0-3) Basophils (%) (Auto) 0 % (0-3) Neutrophils # (Auto) 14.7 x10^3/uL (1.8-7.7) Lymphocytes # (Auto) 1.0 x10^3/uL (1.0-4.8) Monocytes # (Auto) 1.4 x10^3/uL (0.0-1.1) Eosinophils # (Auto) 0.2 x10^3/uL (0.0-0.7) Basophils # (Auto) 0.0 x10^3/uL (0.0-0.2) Sodium Level 134 mmol/L (136-145) Potassium Level 3.8 mmol/L (3.5-5.1) Chloride Level 101 mmol/L (98-107) Carbon Dioxide Level 26 mmol/L (21-32) Anion Gap 7 (6-14) Blood Urea Nitrogen 16 mg/dL (8-26) Creatinine 1.0 mg/dL (0.7-1.3) Estimated GFR (Cockcroft-Gault) 92.5 BUN/Creatinine Ratio 16 (6-20) Glucose Level 77 mg/dL (70-99) Calcium Level 8.5 mg/dL (8.5-10.1) Total Bilirubin 0.7 mg/dL (0.2-1.0) Aspartate Amino Transf (AST/SGOT) 24 U/L (15-37) Alanine Aminotransferase (ALT/SGPT) 25 U/L (16-63) Alkaline Phosphatase 104 U/L (46-116) Total Protein 6.4 g/dL (6.4-8.2) Albumin 1.9 g/dL (3.4-5.0) Albumin/Globulin Ratio 0.4 (1.0-1.7) Assessment and Plan Assessmemt and Plan Problems Medical Problems: (1) Hypomagnesemia Status: Acute (2) Perforated appendicitis Status: Acute Comment Review of Relevant I have reviewed the following items demetra (where applicable) has been applied. Justifications for Admission Other Justification MARY PARMAR MD Dec 24, 2020 13:23
[2020-12-24 15:00] VITALS: BP 112/78
[2020-12-24 19:00] VITALS: BP 102/68
[2020-12-24 23:00] VITALS: BP 116/85
[2020-12-24] MEDS: IV NORMAL SALINE 1000ML BAG 1,000 ML IV SCH (23:15)
[2020-12-25 03:00] VITALS: BP 130/77
[2020-12-25] MEDS: PIPERACILLIN/TAZOBACTAM 3.375 GM in IV NORMAL SALINE 50ML 50 ML IV SCH ×4 (05:32→23:33)
[2020-12-25 07:00] VITALS: BP 111/65
--- NOTE | 2020-12-25 08:51 | PDOC ---
RITA CENTENO SAMPLE STEAMER 12/25/20 0851: SURGICAL PROGRESS NOTE DATE: 12/25/20 TIME: 08:49 Subjective tolerating clears some flatus no nausea pain improving ambulating more Vital Signs Vital Signs Date Time Temp Pulse Resp B/P (MAP) Pulse Ox O2 Delivery O2 Flow Rate FiO2 12/25/20 07:00 97.9 82 18 111/65 (80) 96 Nasal Cannula 2.0 97.9 I&O Intake and Output 12/25/20 07:00 Intake Total 1390 ml Output Total 1915 ml Balance -525 ml Intake Oral 240 ml IV Total 1150 ml Output Urine Total 1725 ml Gastric Drainage Total 90 ml Drainage Total 100 ml General: Alert, Oriented X3, Cooperative Abdomen: Soft, Other (mildlyl distended, drain serous, incision intact, cristobal in place) Labs Laboratory Tests Test 12/24/20 05:25 White Blood Count 17.3 x10^3/uL (4.0-11.0) Red Blood Count 4.52 x10^6/uL (4.30-5.70) Hemoglobin 12.5 g/dL (13.0-17.5) Hematocrit 38.3 % (39.0-53.0) Mean Corpuscular Volume 85 fL (79-100) Mean Corpuscular Hemoglobin 28 pg (25-35) Mean Corpuscular Hemoglobin Concent 33 g/dL (31-37) Red Cell Distribution Width 14.3 % (11.5-14.5) Platelet Count 309 x10^3/uL (140-400) Neutrophils (%) (Auto) 85 % (31-73) Lymphocytes (%) (Auto) 6 % (24-48) Monocytes (%) (Auto) 8 % (0-9) Eosinophils (%) (Auto) 1 % (0-3) Basophils (%) (Auto) 0 % (0-3) Neutrophils # (Auto) 14.7 x10^3/uL (1.8-7.7) Lymphocytes # (Auto) 1.0 x10^3/uL (1.0-4.8) Monocytes # (Auto) 1.4 x10^3/uL (0.0-1.1) Eosinophils # (Auto) 0.2 x10^3/uL (0.0-0.7) Basophils # (Auto) 0.0 x10^3/uL (0.0-0.2) Sodium Level 134 mmol/L (136-145) Potassium Level 3.8 mmol/L (3.5-5.1) Chloride Level 101 mmol/L (98-107) Carbon Dioxide Level 26 mmol/L (21-32) Anion Gap 7 (6-14) Blood Urea Nitrogen 16 mg/dL (8-26) Creatinine 1.0 mg/dL (0.7-1.3) Estimated GFR (Cockcroft-Gault) 92.5 BUN/Creatinine Ratio 16 (6-20) Glucose Level 77 mg/dL (70-99) Calcium Level 8.5 mg/dL (8.5-10.1) Total Bilirubin 0.7 mg/dL (0.2-1.0) Aspartate Amino Transf (AST/SGOT) 24 U/L (15-37) Alanine Aminotransferase (ALT/SGPT) 25 U/L (16-63) Alkaline Phosphatase 104 U/L (46-116) Total Protein 6.4 g/dL (6.4-8.2) Albumin 1.9 g/dL (3.4-5.0) Albumin/Globulin Ratio 0.4 (1.0-1.7) Problem List Problems Medical Problems: (1) Hypomagnesemia Status: Acute (2) Perforated appendicitis Status: Acute Assessment/Plan clears, await improved bowel function 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
[2020-12-25] MEDS ORDERED: HYDROmorphone 2 MG/ML VIAL IVP PRN (09:00)
--- NOTE | 2020-12-25 09:57 | NUR ---
SW following. Discussed with RN, pt from home alone, 2L - RN will attempt to titrate today, clear liquid diet, pt still has drains and IV abx, COVID-19 negative. 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 Await improved bowel function. SW will continue to follow.
[2020-12-25 10:46] LABS: BASO % 0 % (0-3); EOS # 0.2 x10^3/uL (0.0-0.7); EOS % 2 % (0-3); HEMATOCRIT 36.9 % (39.0-53.0); LYMPH % 7 % (24-48); MEAN CORPUSCULAR HEMOGLOBIN 27 pg (25-35); MEAN CORPUSCULAR HGB CONC 33 g/dL (31-37); MEAN CORPUSCULAR VOLUME 84 fL (79-100); MONO # 1.5 x10^3/uL (0.0-1.1); MONO % 10 % (0-9); NEUT # 11.9 x10^3/uL (1.8-7.7); NEUT % 81 % (31-73); PLATELET COUNT 356 x10^3/uL (140-400); RED BLOOD COUNT 4.38 x10^6/uL (4.30-5.70); RED CELL DISTRIBUTION WIDTH 14.2 % (11.5-14.5); WHITE BLOOD COUNT 14.7 x10^3/uL (4.0-11.0)
[2020-12-25 11:00] VITALS: BP 98/71
[2020-12-25] MEDS: oxyCODONE/APAP 5/325 1 TAB TABLET PO PRN ×2 (11:02→20:00)
[2020-12-25] MEDS: ENOXAPARIN 40 MG/0.4 ML SYRINGE. SQ SCH (11:03)
[2020-12-25] MEDS: AMINO AC 3%/ELECTROLYTE/GLYCER 1,000 ML IV SCH ×2 (11:03→23:33)
[2020-12-25 11:11] LABS: GFR 92.5; MAGNESIUM 2.2 mg/dL (1.8-2.4); POTASSIUM 3.7 mmol/L (3.5-5.1)
--- NOTE | 2020-12-25 11:42 | PDOC ---
[employer] PROGRESS NOTE Date of Service DOS: DATE: 12/25/20 TIME: 11:41 Chief Complaint Chief Complaint impression Perforated appendicitis - abscess presence unclear, will f/u renal function to obtain CT with contrast vs US. NPO, IV pain control. Zosyn q6hrs. 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 Sepsis - due to perforated diverticulitis - given empiric IVF and zosyn ALYSIA - likely vasomotor nephropathy given poor PO intake, continue IV fluid resuscitation, creatinine seems to be at baseline since no changes have been noted although it could be compromised due to his underlying infectious process Pelvic fluid collection - between seminal vesicles and rectum, possibly abscess, will repeat labs and try CT with contrast if renal function improves Elevated PSA - noted outpatient Bilateral hip osteoarthrosis - noted on CT Hypomagnesemia - Replace IV Elevated bilirubin - will monitor Moderate protein calorie malnutrition - will start on IV nutrition FEN -advance to clear liquid diet, procalamine PPX - heparin FULL CODE Dispo - inpatient for above, negative rapid covid19, continue IV antibiotics and bowel rest, will defer to surgery for further surgical decision making Procedure: Laparoscopic converted to open appendectomy, drainage of abdominal abscesses 12-20-2012-23 bowel function slow to return D/W RN History of Present Illness History of Present Illness Mr Rosales is a 60 year old male w/ PMHx HLD and recent elevated PSA of 13 who presented to ER due to intractable abdominal pain for the past 24 hours. He and his brother, maria, note that his symptoms have been going on for a week intermittently and 5 days ago he felt his pain suddenly improve and then intermittently with cramping pain with eating for the past 3 days prior to presentation, but on 12/19/2020 it got significantly worse overnight and became constant, sharp in his RLQ with associated chills without fever. He is thirsty but has not been able to eat or drink without nausea, now has no appetite. He notes his urine output has dropped the last few days, but thought it was his prostate as a few months ago he had his PSA elevated. Patient denies any cough or chest pain or any trouble breathing. In ED noted to be tachycardic 100 bpm and febrile to 100.[address] abdomen/pelvis elongated masslike structure in the right lower quadrant with surrounding fat stranding suspicious for ruptured appendicitis with phlegmon or complex abscess. WBC 12.1, Hb 12.9, platelets 220, Na 139, K 3.6, BUN 12, Cr 1.8, glucose 87, Mg 1.5, lactic acid 2.8, Bilirubin 1.6, Albumin 2.8. Admitted for further care. 12/21: Patient with fever overnight and chills. Still having abdominal discomfort somewhat improved compared to admission. Discussed with surgical pathologist. He may need surgery later in the day 12/22/2020 No acute events overnight. White count trending upwards. No fevers reported in the past 24 hours. Pain is controlled. Incision sites appears to be intact. Dressings are clear dry and intact. 12/23 d/w rn Pain is controlled. Incision sites appears to be intact. Dressings are clear dry and intact. 12/24/2020 No acute events overnight. Pain is moderately controlled. Redirected patient to use PAPER LATCHER. Patient does endorse flatus. Patient's chart, labs, images were reviewed and discussed with RN 12/25/2020 No acute events overnight. Patient seen and examined bedside. And up to chair. Pain is better controlled will DC PAPER LATCHER. Tolerating clears and having flatus. No bowel movement this time. Patient's chart, labs, images were reviewed and discussed with RN Vitals/I&O Vitals/I&O: Vital Signs Date Time Temp Pulse Resp B/P (MAP) Pulse Ox O2 Delivery O2 Flow Rate FiO2 12/25/20 11:02 Room Air 12/25/20 11:00 97.8 84 18 98/71 (80) 97 2.0 97.8 I & O 12/24/20 12/24/20 12/25/20 15:00 23:00 07:00 Intake Total 1050 ml 340 ml Output Total 590 ml 125 ml 1200 ml Balance -590 ml 925 ml -860 ml Physical Exam General: Alert, Oriented X3, Cooperative Heart: Regular rate, Normal S1, Normal S2, No murmurs Lungs: Clear Abdomen: Soft, Other (mildlyl distended, drain serous, incision intact, cristobal in place) Extremities: No clubbing, No cyanosis, No edema, Normal pulses, No tenderness/swelling Skin: No rashes, No breakdown, No significant lesion Labs Labs: Laboratory Tests Test 12/25/20 10:32 White Blood Count 14.7 x10^3/uL (4.0-11.0) Red Blood Count 4.38 x10^6/uL (4.30-5.70) Hemoglobin 12.0 g/dL (13.0-17.5) Hematocrit 36.9 % (39.0-53.0) Mean Corpuscular Volume 84 fL (79-100) Mean Corpuscular Hemoglobin 27 pg (25-35) Mean Corpuscular Hemoglobin Concent 33 g/dL (31-37) Red Cell Distribution Width 14.2 % (11.5-14.5) Platelet Count 356 x10^3/uL (140-400) Neutrophils (%) (Auto) 81 % (31-73) Lymphocytes (%) (Auto) 7 % (24-48) Monocytes (%) (Auto) 10 % (0-9) Eosinophils (%) (Auto) 2 % (0-3) Basophils (%) (Auto) 0 % (0-3) Neutrophils # (Auto) 11.9 x10^3/uL (1.8-7.7) Lymphocytes # (Auto) 1.0 x10^3/uL (1.0-4.8) Monocytes # (Auto) 1.5 x10^3/uL (0.0-1.1) Eosinophils # (Auto) 0.2 x10^3/uL (0.0-0.7) Basophils # (Auto) 0.0 x10^3/uL (0.0-0.2) Sodium Level 135 mmol/L (136-145) Potassium Level 3.7 mmol/L (3.5-5.1) Chloride Level 100 mmol/L (98-107) Carbon Dioxide Level 28 mmol/L (21-32) Anion Gap 7 (6-14) Blood Urea Nitrogen 14 mg/dL (8-26) Creatinine 1.0 mg/dL (0.7-1.3) Estimated GFR (Cockcroft-Gault) 92.5 Glucose Level 117 mg/dL (70-99) Calcium Level 9.0 mg/dL (8.5-10.1) Magnesium Level 2.2 mg/dL (1.8-2.4) Assessment and Plan Assessmemt and Plan Problems Medical Problems: (1) Hypomagnesemia Status: Acute (2) Perforated appendicitis Status: Acute Comment Review of Relevant I have reviewed the following items demetra (where applicable) has been applied. Medications: Current Medications Medications (Trade) Dose Ordered Sig/Papa Route PRN Reason Start Time Stop Time Status Last Admin Dose Admin Oxycodone/ Acetaminophen (Percocet 5/325) 1 tab PRN Q4HRS PRN PO PAIN 12/25/20 09:00 12/25/20 11:02 Justifications for Admission Other Justification MARY PARMAR MD Dec 25, 2020 11:42
[2020-12-25] MEDS: IV NORMAL SALINE 1000ML BAG 1,000 ML IV SCH (14:00)
[2020-12-25 15:00] VITALS: BP 111/82
--- NOTE | 2020-12-25 18:08 | PATHOLOGY ---
[facility] Accession Number: [id number] . 01 Material submitted: . appendix - APPENDIX . 01 Clinical history: . OPEN APPENDECTOMY . 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 SEE COMMENT. - Lymphomatous involvement of proximal appendiceal margin present. - Acute appendicitis. . (JP:mm; 12/25/2020) [facility] 12/25/2020 1253 Local . 02 Comment: Sections of the appendix reveal extensive involvement by a high-grade lymphoproliferative neoplasm. The neoplasm has a starry marita appearance. The neoplastic cells are present in sheets, and are of medium size and have a high N/C ratio. The malignant cells possess rounded nuclei having a fine chromatin and one or more nucleoli. Mitotic figures are readily demonstrated. The neoplasm involves all layers of the appendix and does partially involve the proximal appendiceal margin. There are extensive areas of tumor degeneration and necrosis with foci of rupture. There is a superimposed acute appendicitis. A panel of immunoperoxidase stains is obtained on block A1 and yields the following results: . CD20: Tumor cells positive PAX-5: Tumor cells positive CD3: Tumor cells negative CD5: Tumor cells negative CD10: Tumor cells positive BCL-2: Tumor cells negative BCL-6: Tumor cells negative CD23: Tumor cells negative Cyclin D1: Tumor cells negative MUM1: Tumor cells negative Ki-67: Tumor cells show high proliferation index (essentially 100%) . The morphologic and immunophenotypic findings are supportive of the diagnosis of high-grade B-cell lymphoma, and are consistent with involvement by Burkitt lymphoma. Block A1 is submitted for high-grade B-cell lymphoma Fish Panel, the results of which will be reported separately. The case is also examined by Dr. Darshana Luna, hematopathologist, who concurs with the diagnosis. . Special stains (A1): Immunoperoxidase stains for CD20, PAX-5, CD3, CD5, CD10, BCL-2, BCL-6, CD23, Cyclin D1, MUM1 and Ki-67 . (JPM:mml; 12/25/2020) . 02 Electronically signed: . Travon Hussein MD, Pathologist NPI- [id number] . 01 Gross description: . The specimen is received in formalin, labeled "Ankur Rosales, appendix". Received in two pieces is a vermiform appendix measuring 12.5 cm in length and ranges in diameter from 0.6 to 2.5 cm upon reconstruction. There is a large amount of attached mesoappendix. The serosal surface is dusky pink-cunningham to cunningham-brown in appearance with a large amount of overlying adhesions. The specimen is ruptured approximately 4.3 cm from the proximal margin. The surgical margin is closed with a line of sp. The sp are removed and the new margin is inked black. Sectioning reveals a pinpoint to dilated lumen filled with light see friable material. A second area of possible perforation is identified at the distal tip. The specimen is submitted representatively as follows: . A1 proximal margin, en face A2 distal tip, bisected with area of possible perforation A3-A5 customer retention representative sections from area of perforation A6 customer retention representative cross section proximal to perforation A7-A8 customer retention representative cross-sections distal to perforation. (CAA; 12/23/2020) QA/[facility] 12/23/2020 1115 Local . 02 Pathologist provided ICD-10: C85.19, K35.80 . 02 CPT . 157206, [id number], [id number], [id number] Specimen Comment: A courtesy copy of this report has been sent to [phone] Specimen Comment: Report sent to Performed at: 01 [facility] [address], [place] [id number] MD Antonio Kearns MD Phone: [phone] Performed at: 02 [facility] [address] [place], [place] [id number] MD Travon Hussein MD Phone: [phone]
[2020-12-25 19:40] VITALS: BP 108/71
[2020-12-25] MEDS: ATORVASTATIN CALCIUM 40 MG TABLET. PO SCH (19:59)
[2020-12-25 22:05] VITALS: BP 120/86
[2020-12-26] MEDS: oxyCODONE/APAP 5/325 1 TAB TABLET PO PRN (01:28)
[2020-12-26 03:45] VITALS: BP 122/76
[2020-12-26] MEDS: PIPERACILLIN/TAZOBACTAM 3.375 GM in IV NORMAL SALINE 50ML 50 ML IV SCH ×4 (05:32→23:43)
[2020-12-26 07:00] VITALS: BP 112/88
--- NOTE | 2020-12-26 09:04 | PDOC ---
RITA CENTENO INSURANCE APPLICATION INVESTIGATOR 12/26/20 0904: SURGICAL PROGRESS NOTE DATE: 12/26/20 TIME: 09:03 Subjective more flatus percocet upset his stomach Vital Signs Vital Signs Date Time Temp Pulse Resp B/P (MAP) Pulse Ox O2 Delivery O2 Flow Rate FiO2 12/26/20 07:00 98.0 94 16 112/88 (96) 96 Room Air 98.0 12/26/20 06:39 1.0 I&O Intake and Output 12/26/20 07:00 Intake Total 3230 ml Output Total 2215 ml Balance 1015 ml Intake Oral 1030 ml IV Total 2200 ml Output Urine Total 2045 ml Drainage Total 170 ml General: Alert, Oriented X3, Cooperative Abdomen: Soft, Other (drain serous ) Labs Laboratory Tests Test 12/25/20 10:32 White Blood Count 14.7 x10^3/uL (4.0-11.0) Red Blood Count 4.38 x10^6/uL (4.30-5.70) Hemoglobin 12.0 g/dL (13.0-17.5) Hematocrit 36.9 % (39.0-53.0) Mean Corpuscular Volume 84 fL (79-100) Mean Corpuscular Hemoglobin 27 pg (25-35) Mean Corpuscular Hemoglobin Concent 33 g/dL (31-37) Red Cell Distribution Width 14.2 % (11.5-14.5) Platelet Count 356 x10^3/uL (140-400) Neutrophils (%) (Auto) 81 % (31-73) Lymphocytes (%) (Auto) 7 % (24-48) Monocytes (%) (Auto) 10 % (0-9) Eosinophils (%) (Auto) 2 % (0-3) Basophils (%) (Auto) 0 % (0-3) Neutrophils # (Auto) 11.9 x10^3/uL (1.8-7.7) Lymphocytes # (Auto) 1.0 x10^3/uL (1.0-4.8) Monocytes # (Auto) 1.5 x10^3/uL (0.0-1.1) Eosinophils # (Auto) 0.2 x10^3/uL (0.0-0.7) Basophils # (Auto) 0.0 x10^3/uL (0.0-0.2) Sodium Level 135 mmol/L (136-145) Potassium Level 3.7 mmol/L (3.5-5.1) Chloride Level 100 mmol/L (98-107) Carbon Dioxide Level 28 mmol/L (21-32) Anion Gap 7 (6-14) Blood Urea Nitrogen 14 mg/dL (8-26) Creatinine 1.0 mg/dL (0.7-1.3) Estimated GFR (Cockcroft-Gault) 92.5 Glucose Level 117 mg/dL (70-99) Calcium Level 9.0 mg/dL (8.5-10.1) Magnesium Level 2.2 mg/dL (1.8-2.4) Laboratory Tests Test 12/25/20 10:32 White Blood Count 14.7 x10^3/uL (4.0-11.0) Red Blood Count 4.38 x10^6/uL (4.30-5.70) Hemoglobin 12.0 g/dL (13.0-17.5) Hematocrit 36.9 % (39.0-53.0) Mean Corpuscular Volume 84 fL (79-100) Mean Corpuscular Hemoglobin 27 pg (25-35) Mean Corpuscular Hemoglobin Concent 33 g/dL (31-37) Red Cell Distribution Width 14.2 % (11.5-14.5) Platelet Count 356 x10^3/uL (140-400) Neutrophils (%) (Auto) 81 % (31-73) Lymphocytes (%) (Auto) 7 % (24-48) Monocytes (%) (Auto) 10 % (0-9) Eosinophils (%) (Auto) 2 % (0-3) Basophils (%) (Auto) 0 % (0-3) Neutrophils # (Auto) 11.9 x10^3/uL (1.8-7.7) Lymphocytes # (Auto) 1.0 x10^3/uL (1.0-4.8) Monocytes # (Auto) 1.5 x10^3/uL (0.0-1.1) Eosinophils # (Auto) 0.2 x10^3/uL (0.0-0.7) Basophils # (Auto) 0.0 x10^3/uL (0.0-0.2) Sodium Level 135 mmol/L (136-145) Potassium Level 3.7 mmol/L (3.5-5.1) Chloride Level 100 mmol/L (98-107) Carbon Dioxide Level 28 mmol/L (21-32) Anion Gap 7 (6-14) Blood Urea Nitrogen 14 mg/dL (8-26) Creatinine 1.0 mg/dL (0.7-1.3) Estimated GFR (Cockcroft-Gault) 92.5 Glucose Level 117 mg/dL (70-99) Calcium Level 9.0 mg/dL (8.5-10.1) Magnesium Level 2.2 mg/dL (1.8-2.4) Problem List Problems Medical Problems: (1) Hypomagnesemia Status: Acute (2) Perforated appendicitis Status: Acute Assessment/Plan will change to tramadol full liquids Justicifation of Admission Dx: Justifications for Admission: Justification of Admission Dx: Comment: (Perforated appendicitis) YOMAIRA CASTILLO MD 12/26/20 0934: SURGICAL PROGRESS NOTE Assessment/Plan Pt progressing; path shows lymphoma, will consult Oncology RITA CENTENO APRN Dec 26, 2020 09:04 YOMAIRA CASTILLO MD Dec 26, 2020 09:34
[2020-12-26] MEDS ORDERED: traMADol 50 MG TABLET PO PRN (09:15)
[2020-12-26] MEDS: ENOXAPARIN 40 MG/0.4 ML SYRINGE. SQ SCH (09:55)
[2020-12-26] MEDS: AMINO AC 3%/ELECTROLYTE/GLYCER 1,000 ML IV SCH ×2 (09:56→22:42)
--- NOTE | 2020-12-26 10:43 | NUR ---
SW following. Discussed with RN,pt from home alone, 1L (does not use a home), clear liquid diet, COVID-19 negative. Pt having some pain issues today. Pt will need a 6 minute walk prior to discharge, if RN unable to titrate off oxygen. SW will continue to follow.
[2020-12-26 11:00] VITALS: BP 135/96
--- NOTE | 2020-12-26 12:13 | PDOC ---
[facility] [facility] PROGRESS NOTE Date of Service DOS: DATE: 12/26/20 TIME: 12:12 Chief Complaint Chief Complaint impression Perforated appendicitis - abscess presence unclear, will f/u renal function to obtain CT with contrast vs US. NPO, IV pain control. Zosyn q6hrs. 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 Intractable abdominal pain - due to above, continue IV Dilaudid MEMBERSHIP DIRECTOR Sepsis - due to perforated diverticulitis - given empiric IVF and zosyn ALYSIA - likely vasomotor nephropathy given poor PO intake, continue IV fluid resuscitation, creatinine seems to be at baseline since no changes have been noted although it could be compromised due to his underlying infectious process Pelvic fluid collection - between seminal vesicles and rectum, possibly abscess, will repeat labs and try CT with contrast if renal function improves Elevated PSA - noted outpatient Bilateral hip osteoarthrosis - noted on CT Hypomagnesemia - Replace IV Elevated bilirubin - will monitor Moderate protein calorie malnutrition - will start on IV nutrition Pending oncology evaluation FEN -advance to clear liquid diet, procalamine PPX - heparin FULL CODE Dispo - inpatient for above, negative rapid covid19, continue IV antibiotics and bowel rest, will defer to surgery for further surgical decision making Procedure: Laparoscopic converted to open appendectomy, drainage of abdominal abscesses 12-20-2012-23 bowel function slow to return D/W RN History of Present Illness History of Present Illness Mr Rosales is a 60 year old male w/ PMHx HLD and recent elevated PSA of 13 who presented to ER due to intractable abdominal pain for the past 24 hours. He and his brother, bedside, note that his symptoms have been going on for a week inter mittently and 5 days ago he felt his pain suddenly improve and then intermittently with cramping pain with eating for the past 3 days prior to presentation, but on 12/19/2020 it got significantly worse overnight and became constant, sharp in his RLQ with associated chills without fever. He is thirsty but has not been able to eat or drink without nausea, now has no appetite. He notes his urine output has dropped the last few days, but thought it was his prostate as a few months ago he had his PSA elevated. Patient denies any cough or chest pain or any trouble breathing. In ED noted to be tachycardic 100 bpm and febrile to 100.[address] abdomen/pelvis elongated masslike structure in the right lower quadrant with surrounding fat stranding suspicious for ruptured appendicitis with phlegmon or complex abscess. WBC 12.1, Hb 12.9, platelets 220, Na 139, K 3.6, BUN 12, Cr 1.8, glucose 87, Mg 1.5, lactic acid 2.8, Bilirubin 1.6, Albumin 2.8. Admitted for further care. 12/21: Patient with fever overnight and chills. Still having abdominal discomfort somewhat improved compared to admission. Discussed with surgical scrub tech. He may need surgery later in the day 12/22/2020 No acute events overnight. White count trending upwards. No fevers reported in the past 24 hours. Pain is controlled. Incision sites appears to be intact. Dressings are clear dry and intact. 12/23 d/w rn Pain is controlled. Incision sites appears to be intact. Dressings are clear dry and intact. 12/24/2020 No acute events overnight. Pain is moderately controlled. Redirected patient to use MEMBERSHIP DIRECTOR. Patient does endorse flatus. Patient's chart, labs, images were reviewed and discussed with RN 12/25/2020 No acute events overnight. Patient seen and examined bedside. And up to chair. Pain is better controlled will DC MEMBERSHIP DIRECTOR. Tolerating clears and having flatus. No bowel movement this time. Patient's chart, labs, images were reviewed and discussed with RN 12/26/2020 No acute events overnight. Patient seen and examined bedside. We will switch to tramadol for better pain control. Continue with MEMBERSHIP DIRECTOR. Patient's chart, labs, images were reviewed and discussed with RN Vitals/I&O Vitals/I&O: Vital Signs Date Time Temp Pulse Resp B/P (MAP) Pulse Ox O2 Delivery O2 Flow Rate FiO2 12/26/20 11:00 98.0 92 16 135/96 (109) 99 Room Air 98.0 12/26/20 06:39 1.0 I & O 12/25/20 12/25/20 12/26/20 15:00 23:00 07:00 Intake Total 1800 ml 50 ml 1380 ml Output Total 250 ml 1240 ml 725 ml Balance 1550 ml -1190 ml 655 ml Physical Exam General: Alert, Oriented X3, Cooperative Heart: Regular rate, Normal S1, Normal S2, No murmurs Lungs: Clear Abdomen: Soft, Other (drain serous ) Extremities: No clubbing, No cyanosis, No edema, Normal pulses, No tenderness/swelling Skin: No rashes, No breakdown, No significant lesion Assessment and Plan Assessmemt and Plan Problems Medical Problems: (1) Hypomagnesemia Status: Acute (2) Perforated appendicitis Status: Acute Comment Review of Relevant I have reviewed the following items demetra (where applicable) has been applied. Medications: Current Medications Medications (Trade) Dose Ordered Sig/Papa Route PRN Reason Start Time Stop Time Status Last Admin Dose Admin Atorvastatin Calcium (Lipitor) 40 mg QHS PO 12/25/20 21:00 12/25/20 19:59 Tramadol HCl (Ultram) 50 mg PRN Q6HRS PRN PO PAIN 12/26/20 09:15 12/26/20 09:54 Justifications for Admission Other Justification MARY PARMAR MD Dec 26, 2020 12:13
[2020-12-26 15:00] VITALS: BP 115/86
--- NOTE | 2020-12-26 15:44 | PDOC2 ---
CONSULT Date of Consult Date of Consult DATE: 12/26/20 TIME: 15:35 Reason for Consult Reason for Consult: Burkitt lymphoma Referring Physician Referring Physician: Dr. Bates Identification/Chief Complaint Chief Complaint Abdominal pain Source Source: Chart review, Patient History of Present Illness Reason for Visit: Ankur Rosales is a 60-year-old -[place] male who has been admitted to the hospital after presenting with abdominal pain. Patient reported pain in his right lower quadrant of the abdominal pain for the past 2 to 3 days prior to admission. He denied fever or chills. He denied night sweats. He denies recent loss of appetite or weight. He received a CT of the abdomen pelvis at the time of his hospitalization which showed an elongated masslike structure in the right lower quadrant extending into the pelvis, measuring at least 6.7 x 4.3 x 5.3 cm. At the distal aspect of the structure there is a lower density collection measuring 3.9 x 1.6 cm that may be fluid collection between a small vesicles and rectum. This was reported to be suspicious for a perforated appendix. On 12/21/2020 he received a laparoscopic converted to open appendectomy with drainage of abscess from Dr. Bates. Patient has progressed well postoperatively and reports residual abdominal pain but no additional symptoms at this time. 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 Medical oncology consultation has been sought for further recommendations and management. Patient denies any other symptoms at this point. His brother was bedside at the time of my visit. Past Medical History Cardiovascular: Hyperlipidemia Renal/: Other (PSA 13) Past Surgical History Past Surgical History: No pertinent history Family History Family History: High Cholestrol Social History No ALCOHOL: rare Drugs: None Current Problem List Problem List Problems Medical Problems: (1) Hypomagnesemia Status: Acute (2) Perforated appendicitis Status: Acute Current Medications Current Medications Current Medications Sodium Chloride 1,000 ml @ 1,000 mls/hr 1X ONCE IV Last administered on 12/20/20at 11:08; Start 12/20/20 at 11:15; Stop 12/20/20 at 12:14; Status DC Fentanyl Citrate (Fentanyl 2ml Vial) 50 mcg 1X ONCE IVP Last administered on 12/20/20at 12:31; Start 12/20/20 at 12:00; Stop 12/20/20 at 12:01; Status DC Piperacillin Sod/ Tazobactam Sod 3.375 gm/Sodium Chloride 50 ml @ 100 mls/hr 1X ONCE IV Last administered on 12/20/20at 12:15; Start 12/20/20 at 12:00; Stop 12/20/20 at 12:29; Status DC Magnesium Sulfate 50 ml @ 25 mls/hr 1X ONCE IV Last administered on 12/20/20at 12:16; Start 12/20/20 at 12:00; Stop 12/20/20 at 13:59; Status DC Sodium Chloride 1,000 ml @ 1,000 mls/hr 1X ONCE IV Last administered on 12/20at 13:16; Start 12/20/20 at 13:15; Stop 12/20/20 at 14:14; Status DC Fentanyl Citrate (Fentanyl 2ml Vial) 75 mcg 1X ONCE IVP Last administered on 12/20/20at 13:26; Start 12/20/20 at 13:45; Stop 12/20/20 at 13:46; Status DC Ondansetron HCl (Zofran) 4 mg PRN Q8HRS PRN IV NAUSEA/VOMITING; Start 12/20/20 at 13:15; Stop 12/20/20 at 13:46; Status DC Fentanyl Citrate (Fentanyl 2ml Vial) 50 mcg PRN Q1HR PRN IV PAIN; Start 12/20/20 at 13:15; Stop 12/21/20 at 13:14; Status DC Sodium Chloride 1,000 ml @ 100 mls/hr Q10H IV Last administered on 12/21/20at 11:05; Start 12/20/20 at 13:15; Stop 12/21/20 at 13:14; Status DC Sodium Chloride 1,000 ml @ 1,000 mls/hr 1X ONCE IV Last administered on 12/20/20at 13:30; Start 12/20/20 at 13:30; Stop 12/20/20 at 14:29; Status DC Piperacillin Sod/ Tazobactam Sod (Zosyn Per Pharmacy) 1 each PRN DAILY PRN MC SEE COMMENTS; Start 12/20/20 at 13:45 Ondansetron HCl (Zofran) 4 mg PRN Q4HRS PRN IV NAUSEA/VOMITING Last administered on 12/23/20at 05:17; Start 12/20/20 at 13:45 Acetaminophen (Tylenol Supp) 650 mg PRN Q4HRS PRN MD TEMP OVER 100.4F OR MILD PAIN Last administered on 12/21/20at 02:20; Start 12/20/20 at 13:45 Olanzapine (ZyPREXA ZYDIS) 5 mg PRN BID PRN PO ANXIETY / AGITATION; Start 12/20/20 at 13:45 Bisacodyl (Dulcolax Supp) 10 mg PRN DAILY PRN MD CONSTIPATION; Start 12/20/20 at 13:45 Heparin Sodium (Porcine) (Heparin Sodium) 5,000 unit BID ONCE SQ Last administered on 12/20/20at 20:08; Start 12/20/20 at 21:00; Stop 12/20/20 at 21:01; Status DC Morphine Sulfate (Morphine Sulfate) 4 mg PRN Q3HRS PRN IV SEVERE PAIN 7-10 Last administered on 12/21/20at 14:34; Start 12/20/20 at 13:45 Piperacillin Sod/ Tazobactam Sod 3.375 gm/Sodium Chloride 50 ml @ 100 mls/hr Q6HRS IV Last administered on 12/26/20at 13:09; Start 12/20/20 at 18:00 Amino Acids/ Glycerin/ Electrolytes 1,000 ml @ 80 mls/hr [id number] IV Last administered on 12/26/20at 09:56; Start 12/20/20 at 15:00 Potassium Chloride (Klor-Con) 40 meq 1X ONCE PO ; Start 12/21/20 at 10:00; Stop 12/21/20 at 10:01; Status DC Magnesium Sulfate/ Dextrose 100 ml @ 100 mls/hr 1X ONCE IV ; Start 12/21/20 at 10:00; Stop 12/21/20 at 10:59; Status DC Fentanyl Citrate (Fentanyl 2ml Vial) 25 mcg PRN Q5MIN PRN IVP MILD PAIN 1-3; Start 12/21/20 at 10:15; Stop 12/22/20 at 10:14; Status DC Fentanyl Citrate (Fentanyl 2ml Vial) 50 mcg PRN Q5MIN PRN IVP MODERATE PAIN 4- 6; Start 12/21/20 at 10:15; Stop 12/22/20 at 10:14; Status DC Morphine Sulfate (Morphine Sulfate) 1 mg PRN Q10MIN PRN IVP SEVERE PAIN 7-10; Start 12/21/20 at 10:15; Stop 12/22/20 at 10:14; Status DC Ringer's Solution 1,000 ml @ 30 mls/hr Q24H IV Last administered on 12/21/20at 14:23; Start 12/21/20 at 10:15; Stop 12/21/20 at 22:14; Status DC Hydromorphone HCl (Dilaudid) 0.5 mg PRN Q10MIN PRN IVP SEVERE PAIN 7-10, 2nd CHOICE; Start 12/21/20 at 10:15; Stop 12/22/20 at 10:14; Status DC Prochlorperazine Edisylate (Compazine) 5 mg PACU PRN PRN IVP NAUSEA, MRX1 Last administered on 12/21/20at 14:34; Start 12/21/20 at 10:15; Stop 12/22/20 at 10:14; Status DC Potassium Chloride/Water 100 ml @ 100 mls/hr Q1H IV Last administered on 12/21/20at 18:05; Start 12/21/20 at 12:00; Stop 12/21/20 at 15:59; Status DC Sevoflurane (Ultane) 90 ml STK-MED ONCE IH ; Start 12/21/20 at 10:52; Stop 12/21/20 at 10:52; Status DC Succinylcholine Chloride (Anectine) 200 mg STK-MED ONCE .ROUTE ; Start 12/21/20 at 10:52; Stop 12/21/20 at 10:52; Status DC Neostigmine Means (Neostigmine Methylsulfate) 5 mg STK-MED ONCE .ROUTE ; Start 12/21/20 at 10:52; Stop 12/21/20 at 10:52; Status DC Rocuronium Means (Zemuron) 50 mg STK-MED ONCE .ROUTE ; Start 12/21/20 at 10:52; Stop 12/21/20 at 10:52; Status DC Fentanyl Citrate (Fentanyl 2ml Vial) 100 mcg STK-MED ONCE .ROUTE ; Start 12/21/20 at 10:52; Stop 12/21/20 at 10:53; Status DC Midazolam HCl (Versed) 2 mg STK-MED ONCE .ROUTE ; Start 12/21/20 at 10:53; Stop 12/21/20 at 10:53; Status DC Glycopyrrolate (Robinul) 1 mg STK-MED ONCE .ROUTE ; Start 12/21/20 at 10:53; Stop 12/21/20 at 10:53; Status DC Propofol (Diprivan) 200 mg STK-MED ONCE IV ; Start 12/21/20 at 10:53; Stop 12/21/20 at 10:53; Status DC Dexamethasone Sodium Phosphate (Decadron) 4 mg STK-MED ONCE .ROUTE ; Start 12/21/20 at 10:53; Stop 12/21/20 at 10:53; Status DC Ondansetron HCl (Zofran) 4 mg STK-MED ONCE .ROUTE ; Start 12/21/20 at 10:53; Stop 12/21/20 at 10:53; Status DC Lidocaine HCl (Lidocaine Pf 2% Vial) 5 ml STK-MED ONCE .ROUTE ; Start 12/21/20 at 10:53; Stop 12/21/20 at 10:53; Status DC Sodium Chloride 1,000 ml @ 1,000 mls/hr 1X ONCE IV Last administered on 12/21/20at 11:09; Start 12/21/20 at 11:00; Stop 12/21/20 at 11:59; Status DC Bupivacaine HCl/ Epinephrine Bitart (Sensorcain-Epi 0.5% Kit) 30 ml STK-MED ONCE .ROUTE ; Start 12/21/20 at 11:10; Stop 12/21/20 at 11:11; Status DC Sterile Water 10 ml @ As Directed STK-MED ONCE IJ ; Start 12/21/20 at 11:43; Stop 12/21/20 at 11:43; Status DC Ephedrine Sulfate (ePHEDrine PF IN SALINE SYRINGE) 50 mg STK-MED ONCE IV ; Start 12/21/20 at 12:25; Stop 12/21/20 at 12:25; Status DC Phenylephrine HCl (PHENYLEPHRINE in 0.9% NACL PF) 1 mg STK-MED ONCE IV ; Start 12/21/20 at 12:32; Stop 12/21/20 at 12:32; Status DC Fentanyl Citrate (Fentanyl 2ml Vial) 100 mcg STK-MED ONCE .ROUTE ; Start 12/21/20 at 12:49; Stop 12/21/20 at 12:50; Status DC Rocuronium Means (Zemuron) 50 mg STK-MED ONCE .ROUTE ; Start 12/21/20 at 12:51; Stop 12/21/20 at 12:51; Status DC Naloxone HCl (Narcan) 0.4 mg PRN Q2MIN PRN IV SEE INSTRUCTIONS; Start 12/21/20 at 14:00 Sodium Chloride 1,000 ml @ 25 mls/hr Q24H IV Last administered on 12/24/20at 23:15; Start 12/21/20 at 14:00; Stop 12/25/20 at 20:08; Status DC Hydromorphone HCl 30 ml @ 0 mls/hr CONT PRN PRN IV PER PROTOCOL Last administered on 12/21/20at 14:52; Start 12/21/20 at 14:00; Stop 12/25/20 at 08:52; Status DC Prochlorperazine Edisylate (Compazine) 10 mg STK-MED ONCE .ROUTE ; Start 12/21/20 at 14:17; Stop 12/21/20 at 14:17; Status DC Enoxaparin Sodium (Lovenox 40mg Syringe) 40 mg Q24H SQ Last administered on 12/26/20at 09:55; Start 12/23/20 at 10:00 Hydromorphone HCl (Dilaudid) 0.4 mg PRN Q4HRS PRN IVP PAIN Last administered on 12/26/20at 06:39; Start 12/25/20 at 09:00 Oxycodone/ Acetaminophen (Percocet 5/325) 1 tab PRN Q4HRS PRN PO PAIN Last administered on 12/26/20at 01:28; Start 12/25/20 at 09:00; Stop 12/26/20 at 09:04; Status DC Atorvastatin Calcium (Lipitor) 40 mg QHS PO Last administered on 12/25/20at 19:59; Start 12/25/20 at 21:00 Tramadol HCl (Ultram) 50 mg PRN Q6HRS PRN PO PAIN Last administered on 12/26/20at 09:54; Start 12/26/20 at 09:15 Active Scripts Active Reported Lipitor (Atorvastatin Calcium) 40 Mg Tablet 1 Tab PO QHS Allergies Allergies: Coded Allergies: No Known Drug Allergies (Unverified , 1/22/18) ROS General: YES: Fatigue, Malaise PSYCHOLOGICAL ROS: No: Hallucinations Eyes: No Eye Pain, No Itchy Eyes HEENT: No: Oral lesions, Sinus pain ALLERGY AND IMMUNOLOGY: No: Nasal Congestion, Post Nasal Drip Hematological and Lymphatic: No: Brusing, Night Sweats ENDOCRINE: No: Malaise/lethargy, Mood Swings Breast: No Nipple discharge Respiratory: No: Shortness of breath, SOB with excertion Cardiovascular: No Paroxysmal Noc. Dyspnea Gastrointestinal: No Diarrhea, No Constipation Genitourinary: No Urgency, No Pain Musculoskeletal: No Joint Swelling, No Muscle Pain Neurological: No Headaches, No Impaired Coord/balance Skin: No Mole Changes, No Nail Changes Physical Exam General: Alert, Oriented X3 HEENT: Atraumatic Lungs: Clear to auscultation Heart: Regular rate, Normal S1, Normal S2 Abdomen: Normal bowel sounds, Soft Extremities: No cyanosis Skin: No rashes Neuro: Normal gait Psych/Mental Status: Mental status NL MUSCULOSKELETAL: No swelling Vitals VITALS Vital Signs Date Time Temp Pulse Resp B/P (MAP) Pulse Ox O2 Delivery O2 Flow Rate FiO2 12/26/20 11:00 98.0 92 16 135/96 (109) 99 Room Air 98.0 12/26/20 10:54 1.0 Labs Labs Laboratory Tests Test 12/25/20 10:32 12/26/20 12:15 White Blood Count 14.7 x10^3/uL (4.0-11.0) Red Blood Count 4.38 x10^6/uL (4.30-5.70) Hemoglobin 12.0 g/dL (13.0-17.5) Hematocrit 36.9 % (39.0-53.0) Mean Corpuscular Volume 84 fL (79-100) Mean Corpuscular Hemoglobin 27 pg (25-35) Mean Corpuscular Hemoglobin Concent 33 g/dL (31-37) Red Cell Distribution Width 14.2 % (11.5-14.5) Platelet Count 356 x10^3/uL (140-400) Neutrophils (%) (Auto) 81 % (31-73) Lymphocytes (%) (Auto) 7 % (24-48) Monocytes (%) (Auto) 10 % (0-9) Eosinophils (%) (Auto) 2 % (0-3) Basophils (%) (Auto) 0 % (0-3) Neutrophils # (Auto) 11.9 x10^3/uL (1.8-7.7) Lymphocytes # (Auto) 1.0 x10^3/uL (1.0-4.8) Monocytes # (Auto) 1.5 x10^3/uL (0.0-1.1) Eosinophils # (Auto) 0.2 x10^3/uL (0.0-0.7) Basophils # (Auto) 0.0 x10^3/uL (0.0-0.2) Sodium Level 135 mmol/L (136-145) Potassium Level 3.7 mmol/L (3.5-5.1) Chloride Level 100 mmol/L (98-107) Carbon Dioxide Level 28 mmol/L (21-32) Anion Gap 7 (6-14) Blood Urea Nitrogen 14 mg/dL (8-26) Creatinine 1.0 mg/dL (0.7-1.3) Estimated GFR (Cockcroft-Gault) 92.5 Glucose Level 117 mg/dL (70-99) Calcium Level 9.0 mg/dL (8.5-10.1) Magnesium Level 2.2 mg/dL (1.8-2.4) Lactate Dehydrogenase 193 U/L (85-227) Hepatitis B Surface Antigen Nonreactive (Nonreactive) Hepatitis B Surface Antibody Nonreactive Hepatitis B Core Total Antibody Nonreactive (Nonreactive) Hepatitis C IgG Antibody Nonreactive (Nonreactive) HIV (1&2) Antibody Screen Nonreactive (Nonreactive) Laboratory Tests Test 12/26/20 12:15 Lactate Dehydrogenase 193 U/L (85-227) Hepatitis B Surface Antigen Nonreactive (Nonreactive) Hepatitis B Surface Antibody Nonreactive Hepatitis B Core Total Antibody Nonreactive (Nonreactive) Hepatitis C IgG Antibody Nonreactive (Nonreactive) HIV (1&2) Antibody Screen Nonreactive (Nonreactive) Assessment/Plan Assessment/Plan Assessment: Burkitt lymphoma, 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 Will discuss timing further with the patient -Given Burkitt lymphoma, he would require aggressive systemic therapy with a multidrug parenteral chemotherapy regimen such as hyper CVAD/methotrexate+sully-C or Codox-M//IVAC. Can consider dose adjusted R-EPOCH but given his good performance status (ECOG 0), would favor a more aggressive regimen -FISH results are pending. We will follow-up -Discussed potential options for initiating therapy including second opinion at a tertiary Medical Center given the complexity of chemotherapy regimen and significant supportive care needs -Continue postoperative care -Rest per primary service Jef So MD Medical Oncology/Hematology Ph: [phone] ROSE SO MD Dec 26, 2020 15:44
--- NOTE | 2020-12-26 17:00 | NUR ---
Pt tearful, expresses indecision on what path to take re "cancer". Related that he doesn't think that he can recuperate from both having surgery and dealing with new diagnosis. Patient declined to have echocardiogram, relating that he will be transferring to soon, and does not want any other tests done before that.
[2020-12-26 19:00] VITALS: BP 122/75
[2020-12-26] MEDS: ATORVASTATIN CALCIUM 40 MG TABLET. PO SCH (22:41)
[2020-12-26] MEDS: ACETAMINOPHEN 325 MG TABLET. PO PRN (22:41)
[2020-12-26 23:06] VITALS: BP 120/76
[2020-12-27] VITALS (7 sets, daily range): BP systolic 103–136; BP diastolic 73–83
[2020-12-27] MEDS: PIPERACILLIN/TAZOBACTAM 3.375 GM in IV NORMAL SALINE 50ML 50 ML IV SCH ×4 (05:19→23:37)
--- NOTE | 2020-12-27 08:46 | PDOC ---
SURGICAL PROGRESS NOTE DATE: 12/27/20 TIME: 08:45 Subjective Patient states he is just not doing well no appetite, no specific complaints Vital Signs Vital Signs Date Time Temp Pulse Resp B/P (MAP) Pulse Ox O2 Delivery O2 Flow Rate FiO2 12/27/20 07:00 98.1 81 18 119/80 (93) 96 Room Air 98.1 12/27/20 03:11 1.0 I&O Intake and Output 12/27/20 07:00 Intake Total 1100 ml Output Total 1125 ml Balance -25 ml IV Total 1100 ml Output Urine Total 750 ml Drainage Total 375 ml PATIENT HAS A KIRAN: No General: Alert, Oriented X3, mild distress Abdomen: Normal bowel sounds, Soft, Other (Wound clean dry and intact mild incisional tenderness ROSETTA drain in place with serous output) Labs Laboratory Tests Test 12/25/20 10:32 12/26/20 12:15 White Blood Count 14.7 x10^3/uL (4.0-11.0) Red Blood Count 4.38 x10^6/uL (4.30-5.70) Hemoglobin 12.0 g/dL (13.0-17.5) Hematocrit 36.9 % (39.0-53.0) Mean Corpuscular Volume 84 fL (79-100) Mean Corpuscular Hemoglobin 27 pg (25-35) Mean Corpuscular Hemoglobin Concent 33 g/dL (31-37) Red Cell Distribution Width 14.2 % (11.5-14.5) Platelet Count 356 x10^3/uL (140-400) Neutrophils (%) (Auto) 81 % (31-73) Lymphocytes (%) (Auto) 7 % (24-48) Monocytes (%) (Auto) 10 % (0-9) Eosinophils (%) (Auto) 2 % (0-3) Basophils (%) (Auto) 0 % (0-3) Neutrophils # (Auto) 11.9 x10^3/uL (1.8-7.7) Lymphocytes # (Auto) 1.0 x10^3/uL (1.0-4.8) Monocytes # (Auto) 1.5 x10^3/uL (0.0-1.1) Eosinophils # (Auto) 0.2 x10^3/uL (0.0-0.7) Basophils # (Auto) 0.0 x10^3/uL (0.0-0.2) Sodium Level 135 mmol/L (136-145) Potassium Level 3.7 mmol/L (3.5-5.1) Chloride Level 100 mmol/L (98-107) Carbon Dioxide Level 28 mmol/L (21-32) Anion Gap 7 (6-14) Blood Urea Nitrogen 14 mg/dL (8-26) Creatinine 1.0 mg/dL (0.7-1.3) Estimated GFR (Cockcroft-Gault) 92.5 Glucose Level 117 mg/dL (70-99) Calcium Level 9.0 mg/dL (8.5-10.1) Magnesium Level 2.2 mg/dL (1.8-2.4) Lactate Dehydrogenase 193 U/L (85-227) Hepatitis B Surface Antigen Nonreactive (Nonreactive) Hepatitis B Surface Antibody Nonreactive Hepatitis B Core Total Antibody Nonreactive (Nonreactive) Hepatitis C IgG Antibody Nonreactive (Nonreactive) HIV (1&2) Antibody Screen Nonreactive (Nonreactive) Laboratory Tests Test 12/26/20 12:15 Lactate Dehydrogenase 193 U/L (85-227) Hepatitis B Surface Antigen Nonreactive (Nonreactive) Hepatitis B Surface Antibody Nonreactive Hepatitis B Core Total Antibody Nonreactive (Nonreactive) Hepatitis C IgG Antibody Nonreactive (Nonreactive) HIV (1&2) Antibody Screen Nonreactive (Nonreactive) Problem List Problems Medical Problems: (1) Hypomagnesemia Status: Acute (2) Perforated appendicitis Status: Acute Assessment/Plan Status post open appendectomy with 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
[2020-12-27] MEDS: AMINO AC 3%/ELECTROLYTE/GLYCER 1,000 ML IV SCH ×2 (09:20→21:56)
[2020-12-27] MEDS: ENOXAPARIN 40 MG/0.4 ML SYRINGE. SQ SCH (09:28)
--- NOTE | 2020-12-27 09:43 | PDOC ---
PROGRESS NOTES Date of Service: DATE: 12/27/20 TIME: 09:43 Chief Complaint Chief Complaint impression Perforated appendicitis - abscess presence unclear, will f/u renal function to obtain CT with contrast vs US. NPO, IV pain control. Zosyn q6hrs. 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 Intractable abdominal pain - due to above, continue IV Dilaudid [employer]ER Sepsis - due to perforated diverticulitis - given empiric IVF and zosyn ALYSIA - likely vasomotor nephropathy given poor PO intake, continue IV fluid resuscitation, creatinine seems to be at baseline since no changes have been noted although it could be compromised due to his underlying infectious process Pelvic fluid collection - between seminal vesicles and rectum, possibly abscess, will repeat labs and try CT with contrast if renal function improves Elevated PSA - noted outpatient Bilateral hip osteoarthrosis - noted on CT Hypomagnesemia - Replace IV Elevated bilirubin - will monitor Moderate protein calorie malnutrition - will start on IV nutrition Pending oncology evaluation FEN -advance to clear liquid diet, procalamine PPX - heparin FULL CODE Dispo - inpatient for above, negative rapid covid19, continue IV antibiotics and bowel rest, will defer to surgery for further surgical decision making Procedure: Laparoscopic converted to open appendectomy, drainage of abdominal abscesses 12-20-20 Status post open appendectomy with subsequent 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 He and his brother, maria, note that his symptoms have been going on for a week intermittently and 5 days ago he felt his pain suddenly improve and then intermittently with cramping pain with eating for the past 3 days prior to presentation, but on 12/19/2020 it got significantly worse overnight and became constant, sharp in his RLQ with associated chills without fever. He is thirsty but has not been able to eat or drink without nausea, now has no appetite. He notes his urine output has dropped the last few days, but thought it was his prostate as a few months ago he had his PSA elevated. Patient denies any cough or chest pain or any trouble breathing. In ED noted to be tachycardic 100 bpm and febrile to 100.[address] abdomen/pelvis elongated masslike structure in the right lower quadrant with surrounding fat stranding suspicious for ruptured appendicitis with phlegmon or complex abscess. WBC 12.1, Hb 12.9, platelets 220, Na 139, K 3.6, BUN 12, Cr 1.8, glucose 87, Mg 1.5, lactic acid 2.8, Bilirubin 1.6, Albumin 2.8. Admitted for further care. 12/21: Patient with fever overnight and chills. Still having abdominal discomfort somewhat improved compared to admission. Discussed with surgical resident. He may need surgery later in the day 12/22/2020 No acute events overnight. White count trending upwards. No fevers reported in the past 24 hours. Pain is controlled. Incision sites appears to be intact. Dressings are clear dry and intact. 12/23 d/w rn Pain is controlled. Incision sites appears to be intact. Dressings are clear dry and intact. 12/24/2020 No acute events overnight. Pain is moderately controlled. Redirected patient to use [employer] POURER. Patient does endorse flatus. Patient's chart, labs, images were reviewed and discussed with RN 12/25/2020 No acute events overnight. Patient seen and examined bedside. And up to chair. Pain is better controlled will DC CONCRETE POURER. Tolerating clears and having flatus. No bowel movement this time. Patient's chart, labs, images were reviewed and discussed with RN 12/26/2020 No acute events overnight. Patient seen and examined bedside. We will switch to tramadol for better pain control. Continue with CONCR[employer]E POURER. Patient's chart, labs, images were reviewed and discussed with RN Vitals Vitals Vital Signs Date Time Temp Pulse Resp B/P (MAP) Pulse Ox O2 Delivery O2 Flow Rate FiO2 12/27/20 07:00 98.1 81 18 119/80 (93) 96 Room Air 98.1 12/27/20 03:11 1.0 Physical Exam General: Alert, Oriented X3, No acute distress, mild distress Heart: Regular rate, Normal S1, Normal S2, No murmurs Lungs: Clear Abdomen: Normal bowel sounds, Soft, Other (Wound clean dry and intact mild inci sional tenderness ROSETTA drain in place with serous output) Extremities: No clubbing, No cyanosis Skin: No rashes Labs LABS Laboratory Tests Test 12/26/20 12:15 Lactate Dehydrogenase 193 U/L (85-227) Hepatitis B Surface Antigen Nonreactive (Nonreactive) Hepatitis B Surface Antibody Nonreactive Hepatitis B Core Total Antibody Nonreactive (Nonreactive) Hepatitis C IgG Antibody Nonreactive (Nonreactive) HIV (1&2) Antibody Screen Nonreactive (Nonreactive) Assessment and Plan Assessmemt and Plan Problems Medical Problems: (1) Hypomagnesemia Status: Acute (2) Perforated appendicitis Status: Acute Comment Review of Relevant I have reviewed the following items demetra (where applicable) has been applied. Labs Laboratory Tests Test 12/25/20 10:32 12/26/20 12:15 White Blood Count 14.7 x10^3/uL (4.0-11.0) Red Blood Count 4.38 x10^6/uL (4.30-5.70) Hemoglobin 12.0 g/dL (13.0-17.5) Hematocrit 36.9 % (39.0-53.0) Mean Corpuscular Volume 84 fL (79-100) Mean Corpuscular Hemoglobin 27 pg (25-35) Mean Corpuscular Hemoglobin Concent 33 g/dL (31-37) Red Cell Distribution Width 14.2 % (11.5-14.5) Platelet Count 356 x10^3/uL (140-400) Neutrophils (%) (Auto) 81 % (31-73) Lymphocytes (%) (Auto) 7 % (24-48) Monocytes (%) (Auto) 10 % (0-9) Eosinophils (%) (Auto) 2 % (0-3) Basophils (%) (Auto) 0 % (0-3) Neutrophils # (Auto) 11.9 x10^3/uL (1.8-7.7) Lymphocytes # (Auto) 1.0 x10^3/uL (1.0-4.8) Monocytes # (Auto) 1.5 x10^3/uL (0.0-1.1) Eosinophils # (Auto) 0.2 x10^3/uL (0.0-0.7) Basophils # (Auto) 0.0 x10^3/uL (0.0-0.2) Sodium Level 135 mmol/L (136-145) Potassium Level 3.7 mmol/L (3.5-5.1) Chloride Level 100 mmol/L (98-107) Carbon Dioxide Level 28 mmol/L (21-32) Anion Gap 7 (6-14) Blood Urea Nitrogen 14 mg/dL (8-26) Creatinine 1.0 mg/dL (0.7-1.3) Estimated GFR (Cockcroft-Gault) 92.5 Glucose Level 117 mg/dL (70-99) Calcium Level 9.0 mg/dL (8.5-10.1) Magnesium Level 2.2 mg/dL (1.8-2.4) Lactate Dehydrogenase 193 U/L (85-227) Hepatitis B Surface Antigen Nonreactive (Nonreactive) Hepatitis B Surface Antibody Nonreactive Hepatitis B Core Total Antibody Nonreactive (Nonreactive) Hepatitis C IgG Antibody Nonreactive (Nonreactive) HIV (1&2) Antibody Screen Nonreactive (Nonreactive) Laboratory Tests Test 12/26/20 12:15 Lactate Dehydrogenase 193 U/L (85-227) Hepatitis B Surface Antigen Nonreactive (Nonreactive) Hepatitis B Surface Antibody Nonreactive Hepatitis B Core Total Antibody Nonreactive (Nonreactive) Hepatitis C IgG Antibody Nonreactive (Nonreactive) HIV (1&2) Antibody Screen Nonreactive (Nonreactive) Microbiology 12/20/20 Blood Culture - Final, Complete NO GROWTH AFTER 5 DAYS Medications Current Medications Sodium Chloride 1,000 ml @ 1,000 mls/hr 1X ONCE IV Last administered on 12/20/20at 11:08; Start 12/20/20 at 11:15; Stop 12/20/20 at 12:14; Status DC Fentanyl Citrate (Fentanyl 2ml Vial) 50 mcg 1X ONCE IVP Last administered on 12/20/20at 12:31; Start 12/20/20 at 12:00; Stop 12/20/20 at 12:01; Status DC Piperacillin Sod/ Tazobactam Sod 3.375 gm/Sodium Chloride 50 ml @ 100 mls/hr 1X ONCE IV Last administered on 12/20/20at 12:15; Start 12/20/20 at 12:00; Stop 12/20/20 at 12:29; Status DC Magnesium Sulfate 50 ml @ 25 mls/hr 1X ONCE IV Last administered on 12/20/20at 12:16; Start 12/20/20 at 12:00; Stop 12/20/20 at 13:59; Status DC Sodium Chloride 1,000 ml @ 1,000 mls/hr 1X ONCE IV Last administered on 12/20/20at 13:16; Start 12/20/20 at 13:15; Stop 12/20/20 at 14:14; Status DC Fentanyl Citrate (Fentanyl 2ml Vial) 75 mcg 1X ONCE IVP Last administered on 12/20/20at 13:26; Start 12/20/20 at 13:45; Stop 12/20/20 at 13:46; Status DC Ondansetron HCl (Zofran) 4 mg PRN Q8HRS PRN IV NAUSEA/VOMITING; Start 12/20/20 at 13:15; Stop 12/20/20 at 13:46; Status DC Fentanyl Citrate (Fentanyl 2ml Vial) 50 mcg PRN Q1HR PRN IV PAIN; Start 12/20/20 at 13:15; Stop 12/21/20 at 13:14; Status DC Sodium Chloride 1,000 ml @ 100 mls/hr Q10H IV Last administered on 12/21/20at 11:05; Start 12/20/20 at 13:15; Stop 12/21/20 at 13:14; Status DC Sodium Chloride 1,000 ml @ 1,000 mls/hr 1X ONCE IV Last administered on 12/20/20at 13:30; Start 12/20/20 at 13:30; Stop 12/20/20 at 14:29; Status DC Piperacillin Sod/ Tazobactam Sod (Zosyn Per Pharmacy) 1 each PRN DAILY PRN MC SEE COMMENTS; Start 12/20/20 at 13:45 Ondansetron HCl (Zofran) 4 mg PRN Q4HRS PRN IV NAUSEA/VOMITING Last administered on 12/23/20at 05:17; Start 12/20/20 at 13:45 Acetaminophen (Tylenol Supp) 650 mg PRN Q4HRS PRN [place] TEMP OVER 100.4F OR MILD PAIN Last administered on 12/21/20at 02:20; Start 12/20/20 at 13:45 Olanzapine (ZyPREXA ZYDIS) 5 mg PRN BID PRN PO ANXIETY / AGITATION; Start 12/20/20 at 13:45 Bisacodyl (Dulcolax Supp) 10 mg PRN DAILY PRN [place] CONSTIPATION; Start 12/20/20 at 13:45 Heparin Sodium (Porcine) (Heparin Sodium) 5,000 unit BID ONCE SQ Last administered on 12/20/20at 20:08; Start 12/20/20 at 21:00; Stop 12/20/20 at 21:01; Status DC Morphine Sulfate (Morphine Sulfate) 4 mg PRN Q3HRS PRN IV SEVERE PAIN 7-10 Last administered on 12/21/20at 14:34; Start 12/20/20 at 13:45 Piperacillin Sod/ Tazobactam Sod 3.375 gm/Sodium Chloride 50 ml @ 100 mls/hr Q6HRS IV Last administered on 12/27/20at 05:19; Start 12/20/20 at 18:00 Amino Acids/ Glycerin/ Electrolytes 1,000 ml @ 80 mls/hr [id number] IV Last administered on 12/27/20at 09:20; Start 12/20/20 at 15:00 Potassium Chloride (Klor-Con) 40 meq 1X ONCE PO ; Start 12/21/20 at 10:00; Stop 12/21/20 at 10:01; Status DC Magnesium Sulfate/ Dextrose 100 ml @ 100 mls/hr 1X ONCE IV ; Start 12/21/20 at 10:00; Stop 12/21/20 at 10:59; Status DC Fentanyl Citrate (Fentanyl 2ml Vial) 25 mcg PRN Q5MIN PRN IVP MILD PAIN 1-3; Start 12/21/20 at 10:15; Stop 12/22/20 at 10:14; Status DC Fentanyl Citrate (Fentanyl 2ml Vial) 50 mcg PRN Q5MIN PRN IVP MODERATE PAIN 4- 6; Start 12/21/20 at 10:15; Stop 12/22/20 at 10:14; Status DC Morphine Sulfate (Morphine Sulfate) 1 mg PRN Q10MIN PRN IVP SEVERE PAIN 7-10; Start 12/21/20 at 10:15; Stop 12/22/20 at 10:14; Status DC Ringer's Solution 1,000 ml @ 30 mls/hr Q24H IV Last administered on 12/21/20at 14:23; Start 12/21/20 at 10:15; Stop 12/21/20 at 22:14; Status DC Hydromorphone HCl (Dilaudid) 0.5 mg PRN Q10MIN PRN IVP SEVERE PAIN 7-10, 2nd CHOICE; Start 12/21/20 at 10:15; Stop 12/22/20 at 10:14; Status DC Prochlorperazine Edisylate (Compazine) 5 mg PACU PRN PRN IVP NAUSEA, MRX1 Last administered on 12/21/20at 14:34; Start 12/21/20 at 10:15; Stop 12/22/20 at 10:14; Status DC Potassium Chloride/Water 100 ml @ 100 mls/hr Q1H IV Last administered on 12/21/20at 18:05; Start 12/21/20 at 12:00; Stop 12/21/20 at 15:59; Status DC Sevoflurane (Ultane) 90 ml STK-MED ONCE IH ; Start 12/21/20 at 10:52; Stop 12/21/20 at 10:52; Status DC Succinylcholine Chloride (Anectine) 200 mg STK-MED ONCE .ROUTE ; Start 12/21/20 at 10:52; Stop 12/21/20 at 10:52; Status DC Neostigmine [place] (Neostigmine Methylsulfate) 5 mg STK-MED ONCE .ROUTE ; Start 12/21/20 at 10:52; Stop 12/21/20 at 10:52; Status DC Rocuronium [place] (Zemuron) 50 mg STK-MED ONCE .ROUTE ; Start 12/21/20 at 10:52; Stop 12/21/20 at 10:52; Status DC Fentanyl Citrate (Fentanyl 2ml Vial) 100 mcg STK-MED ONCE .ROUTE ; Start 12/21/20 at 10:52; Stop 12/21/20 at 10:53; Status DC Midazolam HCl (Versed) 2 mg STK-MED ONCE .ROUTE ; Start 12/21/20 at 10:53; Stop 12/21/20 at 10:53; Status DC Glycopyrrolate (Robinul) 1 mg STK-MED ONCE .ROUTE ; Start 12/21/20 at 10:53; S top 12/21/20 at 10:53; Status DC Propofol (Diprivan) 200 mg STK-MED ONCE IV ; Start 12/21/20 at 10:53; Stop 12/21/20 at 10:53; Status DC Dexamethasone Sodium Phosphate (Decadron) 4 mg STK-MED ONCE .ROUTE ; Start 12/21/20 at 10:53; Stop 12/21/20 at 10:53; Status DC Ondansetron HCl (Zofran) 4 mg STK-MED ONCE .ROUTE ; Start 12/21/20 at 10:53; Stop 12/21/20 at 10:53; Status DC Lidocaine HCl (Lidocaine Pf 2% Vial) 5 ml STK-MED ONCE .ROUTE ; Start 12/21/20 at 10:53; Stop 12/21/20 at 10:53; Status DC Sodium Chloride 1,000 ml @ 1,000 mls/hr 1X ONCE IV Last administered on 12/21/20at 11:09; Start 12/21/20 at 11:00; Stop 12/21/20 at 11:59; Status DC Bupivacaine HCl/ Epinephrine Bitart (Sensorcain-Epi 0.5% Kit) 30 ml STK-MED ONCE .ROUTE ; Start 12/21/20 at 11:10; Stop 12/21/20 at 11:11; Status DC Sterile Water 10 ml @ As Directed STK-MED ONCE IJ ; Start 12/21/20 at 11:43; Stop 12/21/20 at 11:43; Status DC Ephedrine Sulfate (ePHEDrine PF IN SALINE SYRINGE) 50 mg STK-MED ONCE IV ; Start 12/21/20 at 12:25; Stop 12/21/20 at 12:25; Status DC Phenylephrine HCl (PHENYLEPHRINE in 0.9% NACL PF) 1 mg STK-MED ONCE IV ; Start 12/21/20 at 12:32; Stop 12/21/20 at 12:32; Status DC Fentanyl Citrate (Fentanyl 2ml Vial) 100 mcg STK-MED ONCE .ROUTE ; Start 12/21/20 at 12:49; Stop 12/21/20 at 12:50; Status DC Rocuronium [place] (Zemuron) 50 mg STK-MED ONCE .ROUTE ; Start 12/21/20 at 12:51; Stop 12/21/20 at 12:51; Status DC Naloxone HCl (Narcan) 0.4 mg PRN Q2MIN PRN IV SEE INSTRUCTIONS; Start 12/21/20 at 14:00 Sodium Chloride 1,000 ml @ 25 mls/hr Q24H IV Last administered on 12/24/20at 23:15; Start 12/21/20 at 14:00; Stop 12/25/20 at 20:08; Status DC Hydromorphone HCl 30 ml @ 0 mls/hr CONT PRN PRN IV PER PROTOCOL Last administered on 12/21/20 14:52; Start 12/21/20 at 14:00; Stop 12/25/20 at 08:52; Status DC Prochlorperazine Edisylate (Compazine) 10 mg STK-MED ONCE .ROUTE ; Start 12/21/20 at 14:17; Stop 12/21/20 at 14:17; Status DC Enoxaparin Sodium (Lovenox 40mg Syringe) 40 mg Q24H SQ Last administered on 12/27/20at 09:28; Start 12/23/20 at 10:00 Hydromorphone HCl (Dilaudid) 0.4 mg PRN Q4HRS PRN IVP PAIN Last administered on 12/26/20at 06:39; Start 12/25/20 at 09:00 Oxycodone/ Acetaminophen (Percocet 5/325) 1 tab PRN Q4HRS PRN PO PAIN Last administered on 12/26/20at 01:28; Start 12/25/20 at 09:00; Stop 12/26/20 at 09:04; Status DC Atorvastatin Calcium (Lipitor) 40 mg QHS PO Last administered on 12/26/20at 22:41; Start 12/25/20 at 21:00 Tramadol HCl (Ultram) 50 mg PRN Q6HRS PRN PO PAIN Last administered on 12/26/20at 09:54; Start 12/26/20 at 09:15 Acetaminophen (Tylenol) 650 mg PRN Q4HRS PRN PO TEMP > 100.3'F Last administered on 12/26/20at 22:41; Start 12/26/20 at 20:45 Active Scripts Active Reported Lipitor (Atorvastatin Calcium) 40 Mg Tablet 1 Tab PO QHS Vitals/I & O Vital Sign - Last 24 Hours 12/26/20 12/26/20 12/26/20 12/26/20 09:54 10:54 11:00 15:00 Temp 98.0 97.7 98.0 97.7 Pulse 92 90 Resp 20 20 16 18 B/P (MAP) 135/96 (109) 115/86 (96) Pulse Ox 96 99 99 96 O2 Delivery Nasal Cannula Room Air Room Air Room Air O2 Flow Rate 1.0 12/26/20 12/26/20 12/26/20 12/27/20 19:00 20:30 23:06 03:10 Temp 97.8 98.9 97.9 97.8 98.9 97.9 Pulse 95 94 Resp 20 18 20 B/P (MAP) 122/75 (91) 120/76 (91) 117/75 (89) Pulse Ox 99 95 96 O2 Delivery Room Air Room Air Room Air Room Air 12/27/20 12/27/20 03:11 07:00 Temp 97.9 98.1 97.9 98.1 Pulse 94 81 Resp 18 B/P (MAP) 117/75 (89) 119/80 (93) Pulse Ox 96 96 O2 Delivery Room Air Room Air O2 Flow Rate 1.0 Intake and Output 12/26/20 12/26/20 12/27/20 14:59 22:59 06:59 Intake Total 1000 ml 100 ml Output Total 250 ml 875 ml Balance 750 ml -775 ml Justicifation of Admission Dx: Justifications for Admission: Justification of Admission Dx: Comment: (Perforated appendicitis) VALARIE GUZMÁN MD Dec 27, 2020 09:43
--- NOTE | 2020-12-27 16:03 | PDOC ---
PROGRESS NOTES Date of Service DATE: 12/27/20 TIME: 15:58 Subjective Subjective No interval events. Patient reports continued abdominal discomfort. He has had decreased appetite. Brother was at bedside. Patient did not want to have a conversation about his cancer today as it was a "bad time". He wished to defer conversation to a different day. Objective Objective Vital Signs Date Time Temp Pulse Resp B/P (MAP) Pulse Ox O2 Delivery O2 Flow Rate FiO2 12/27/20 15:06 98.0 82 20 136/76 (96) 96 Room Air 98.0 12/27/20 03:11 1.0 Intake and Output 12/27/20 07:00 Intake Total 1100 ml Output Total 1125 ml Balance -25 ml IV Total 1100 ml Output Urine Total 750 ml Drainage Total 375 ml Physical Exam Abdomen: Other (Distended) Heart: Regular rate General: Alert HEENT: Atraumatic Lungs: Clear to auscultation MUSCULOSKELETAL: No swelling Neck: No JVD Neuro: Normal speech Skin: No rashes Assessment Assessment Burkitt lymphoma, high risk-FISH pending Normocytic anemia Hyperlipidemia Plan Plan of Care -Would plan on obtaining PET/CT, lumbar puncture and bone marrow biopsy for restaging. PET can be obtained as outpatient if not authorized by insurance as inpatient -Recommend port placement given anticipated need for chemotherapy -While he technically does not qualify for high risk disease due to positive margins, his disease has been optimally debulked and LDH is low. Would therefore treat as low risk Burkitt lymphoma with 6 cycles of dose adjusted R- EPOCH -Would plan on beginning systemic therapy as outpatient MARLO -Tested negative for HIV and hepatitis B and C -Recommend checking HIV antibody given association with Burkitt lymphoma -Check hepatitis B and C chronic panel given anticipated systemic therapy with rituximab -Check echocardiogram to evaluate cardiac function -FISH results are pending. We will follow-up -Discussed potential options for initiating therapy including second opinion at a tertiary [facility] -Continue postoperative care -Rest per primary service Jef Bowman MD Medical Oncology/Hematology Ph: [phone] Comment Review of Relevant I have reviewed the following items demetra (where applicable) has been applied. Labs Laboratory Tests Test 12/26/20 12:15 Lactate Dehydrogenase 193 U/L (85-227) Hepatitis B Surface Antigen Nonreactive (Nonreactive) Hepatitis B Surface Antibody Nonreactive Hepatitis B Core Total Antibody Nonreactive (Nonreactive) Hepatitis C IgG Antibody Nonreactive (Nonreactive) HIV (1&2) Antibody Screen Nonreactive (Nonreactive) Microbiology 12/20/20 Blood Culture - Final, Complete NO GROWTH AFTER 5 DAYS Medications Current Medications Sodium Chloride 1,000 ml @ 1,000 mls/hr 1X ONCE IV Last administered on 12/20/20at 11:08; Start 12/20/20 at 11:15; Stop 12/20/20 at 12:14; Status DC Fentanyl Citrate (Fentanyl 2ml Vial) 50 mcg 1X ONCE IVP Last administered on 12/20/20at 12:31; Start 12/20/20 at 12:00; Stop 12/20/20 at 12:01; Status DC Piperacillin Sod/ Tazobactam Sod 3.375 gm/Sodium Chloride 50 ml @ 100 mls/hr 1X ONCE IV Last administered on 12/20/20at 12:15; Start 12/20/20 at 12:00; Stop 12/20/20 at 12:29; Status DC Magnesium Sulfate 50 ml @ 25 mls/hr 1X ONCE IV Last administered on 12/20/20at 12:16; Start 12/20/20 at 12:00; Stop 12/20/20 at 13:59; Status DC Sodium Chloride 1,000 ml @ 1,000 mls/hr 1X ONCE IV Last administered on 12/20/20at 13:16; Start 12/20/20 at 13:15; Stop 12/20/20 at 14:14; Status DC Fentanyl Citrate (Fentanyl 2ml Vial) 75 mcg 1X ONCE IVP Last administered on 12/20/20at 13:26; Start 12/20/20 at 13:45; Stop 12/20/20 at 13:46; Status DC Ondansetron HCl (Zofran) 4 mg PRN Q8HRS PRN IV NAUSEA/VOMITING; Start 12/20/20 at 13:15; Stop 12/20/20 at 13:46; Status DC Fentanyl Citrate (Fentanyl 2ml Vial) 50 mcg PRN Q1HR PRN IV PAIN; Start 12/20/20 at 13:15; Stop 12/21/20 at 13:14; Status DC Sodium Chloride 1,000 ml @ 100 mls/hr Q10H IV Last administered on 12/21/20at 11:05; Start 12/20/20 at 13:15; Stop 12/21/20 at 13:14; Status DC Sodium Chloride 1,000 ml @ 1,000 mls/hr 1X ONCE IV Last administered on 12/20/20at 13:30; Start 12/20/20 at 13:30; Stop 12/20/20 at 14:29; Status DC Piperacillin Sod/ Tazobactam Sod (Zosyn Per Pharmacy) 1 each PRN DAILY PRN MC SEE COMMENTS; Start 12/20/20 at 13:45 Ondansetron HCl (Zofran) 4 mg PRN Q4HRS PRN IV NAUSEA/VOMITING Last administered on 12/23/20at 05:17; Start 12/20/20 at 13:45 Acetaminophen (Tylenol Supp) 650 mg PRN Q4HRS PRN [place] TEMP OVER 100.4F OR MILD PAIN Last administered on 12/21/20at 02:20; Start 12/20/20 at 13:45 Olanzapine (ZyPREXA ZYDIS) 5 mg PRN BID PRN PO ANXIETY / AGITATION; Start 12/20/20 at 13:45 Bisacodyl (Dulcolax Supp) 10 mg PRN DAILY PRN [place] CONSTIPATION; Start 12/20/20 at 13:45 Heparin Sodium (Porcine) (Heparin Sodium) 5,000 unit BID ONCE SQ Last administered on 12/20/20at 20:08; Start 12/20/20 at 21:00; Stop 12/20/20 at 21:01; Status DC Morphine Sulfate (Morphine Sulfate) 4 mg PRN Q3HRS PRN IV SEVERE PAIN 7-10 Last administered on 12/21/20at 14:34; Start 12/20/20 at 13:45 Piperacillin Sod/ Tazobactam Sod 3.375 gm/Sodium Chloride 50 ml @ 100 mls/hr Q6HRS IV Last administered on 12/27/20at 11:38; Start 12/20/20 at 18:00 Amino Acids/ Glycerin/ Electrolytes 1,000 ml @ 80 mls/hr [id number] IV Last administered on 12/27/20at 09:20; Start 12/20/20 at 15:00 Potassium Chloride (Klor-Con) 40 meq 1X ONCE PO ; Start 12/21/20 at 10:00; Stop 12/21/20 at 10:01; Status DC Magnesium Sulfate/ Dextrose 100 ml @ 100 mls/hr 1X ONCE IV ; Start 12/21/20 at 10:00; Stop 12/21/20 at 10:59; Status DC Fentanyl Citrate (Fentanyl 2ml Vial) 25 mcg PRN Q5MIN PRN IVP MILD PAIN 1-3; Start 12/21/20 at 10:15; Stop 12/22/20 at 10:14; Status DC Fentanyl Citrate (Fentanyl 2ml Vial) 50 mcg PRN Q5MIN PRN IVP MODERATE PAIN 4- 6; Start 12/21/20 at 10:15; Stop 12/22/20 at 10:14; Status DC Morphine Sulfate (Morphine Sulfate) 1 mg PRN Q10MIN PRN IVP SEVERE PAIN 7-10; Start 12/21/20 at 10:15; Stop 12/22/20 at 10:14; Status DC Ringer's Solution 1,000 ml @ 30 mls/hr Q24H IV Last administered on 12/21/20at 14:23; Start 12/21/20 at 10:15; Stop 12/21/20 at 22:14; Status DC Hydromorphone HCl (Dilaudid) 0.5 mg PRN Q10MIN PRN IVP SEVERE PAIN 7-10, 2nd CHOICE; Start 12/21/20 at 10:15; Stop 12/22/20 at 10:14; Status DC Prochlorperazine Edisylate (Compazine) 5 mg PACU PRN PRN IVP NAUSEA, MRX1 Last administered on 12/21/20at 14:34; Start 12/21/20 at 10:15; Stop 12/22/20 at 10:14; Status DC Potassium Chloride/Water 100 ml @ 100 mls/hr Q1H IV Last administered on 12/21/20at 18:05; Start 12/21/20 at 12:00; Stop 12/21/20 at 15:59; Status DC Sevoflurane (Ultane) 90 ml STK-MED ONCE IH ; Start 12/21/20 at 10:52; Stop 12/21/20 at 10:52; Status DC Succinylcholine Chloride (Anectine) 200 mg STK-MED ONCE .ROUTE ; Start 12/21/20 at 10:52; Stop 12/21/20 at 10:52; Status DC Neostigmine Caliente (Neostigmine Methylsulfate) 5 mg STK-MED ONCE .ROUTE ; Start 12/21/20 at 10:52; Stop 12/21/20 at 10:52; Status DC Rocuronium Caliente (Zemuron) 50 mg STK-MED ONCE .ROUTE ; Start 12/21/20 at 10:52; Stop 12/21/20 at 10:52; Status DC Fentanyl Citrate (Fentanyl 2ml Vial) 100 mcg STK-MED ONCE .ROUTE ; Start 12/21/20 at 10:52; Stop 12/21/20 at 10:53; Status DC Midazolam HCl (Versed) 2 mg STK-MED ONCE .ROUTE ; Start 12/21/20 at 10:53; Stop 12/21/20 at 10:53; Status DC Glycopyrrolate (Robinul) 1 mg STK-MED ONCE .ROUTE ; Start 12/21/20 at 10:53; Stop 12/21/20 at 10:53; Status DC Propofol (Diprivan) 200 mg STK-MED ONCE IV ; Start 12/21/20 at 10:53; Stop 12/21/20 at 10:53; Status DC Dexamethasone Sodium Phosphate (Decadron) 4 mg STK-MED ONCE .ROUTE ; Start 12/21/20 at 10:53; Stop 12/21/20 at 10:53; Status DC Ondansetron HCl (Zofran) 4 mg STK-MED ONCE .ROUTE ; Start 12/21/20 at 10:53; Stop 12/21/20 at 10:53; Status DC Lidocaine HCl (Lidocaine Pf 2% Vial) 5 ml STK-MED ONCE .ROUTE ; Start 12/21/20 at 10:53; Stop 12/21/20 at 10:53; Status DC Sodium Chloride 1,000 ml @ 1,000 mls/hr 1X ONCE IV Last administered on 12/21/20at 11:09; Start 12/21/20 at 11:00; Stop 12/21/20 at 11:59; Status DC Bupivacaine HCl/ Epinephrine Bitart (Sensorcain-Epi 0.5% Kit) 30 ml STK-MED ONCE .ROUTE ; Start 12/21/20 at 11:10; Stop 12/21/20 at 11:11; Status DC Sterile Water 10 ml @ As Directed STK-MED ONCE IJ ; Start 12/21/20 at 11:43; Stop 12/21/20 at 11:43; Status DC Ephedrine Sulfate (ePHEDrine PF IN SALINE SYRINGE) 50 mg STK-MED ONCE IV ; Start 12/21/20 at 12:25; Stop 12/21/20 at 12:25; Status DC Phenylephrine HCl (PHENYLEPHRINE in 0.9% NACL PF) 1 mg STK-MED ONCE IV ; Start 12/21/20 at 12:32; Stop 12/21/20 at 12:32; Status DC Fentanyl Citrate (Fentanyl 2ml Vial) 100 mcg STK-MED ONCE .ROUTE ; Start 12/21/20 at 12:49; Stop 12/21/20 at 12:50; Status DC Rocuronium Caliente (Zemuron) 50 mg STK-MED ONCE .ROUTE ; Start 12/21/20 at 12:51; Stop 12/21/20 at 12:51; Status DC Naloxone HCl (Narcan) 0.4 mg PRN Q2MIN PRN IV SEE INSTRUCTIONS; Start 12/21/20 at 14:00 Sodium Chloride 1,000 ml @ 25 mls/hr Q24H IV Last administered on 12/24/20at 23:15; Start 12/21/20 at 14:00; Stop 12/25/20 at 20:08; Status DC Hydromorphone HCl 30 ml @ 0 mls/hr CONT PRN PRN IV PER PROTOCOL Last administered on 12/21/20at 14:52; Start 12/21/20 at 14:00; Stop 12/25/20 at 08:52; Status DC Prochlorperazine Edisylate (Compazine) 10 mg STK-MED ONCE .ROUTE ; Start 12/21/20 at 14:17; Stop 12/21/20 at 14:17; Status DC Enoxaparin Sodium (Lovenox 40mg Syringe) 40 mg Q24H SQ Last administered on 12/27/20at 09:28; Start 12/23/20 at 10:00 Hydromorphone HCl (Dilaudid) 0.4 mg PRN Q4HRS PRN IVP PAIN Last administered on 12/26/20at 06:39; Start 12/25/20 at 09:00 Oxycodone/ Acetaminophen (Percocet 5/325) 1 tab PRN Q4HRS PRN PO PAIN Last administered on 12/26/20at 01:28; Start 12/25/20 at 09:00; Stop 12/26/20 at 09:04; Status DC Atorvastatin Calcium (Lipitor) 40 mg QHS PO Last administered on 12/26/20at 22:41; Start 12/25/20 at 21:00 Tramadol HCl (Ultram) 50 mg PRN Q6HRS PRN PO PAIN Last administered on 12/26/20at 09:54; Start 12/26/20 at 09:15 Acetaminophen (Tylenol) 650 mg PRN Q4HRS PRN PO TEMP > 100.3'F Last administered on 12/26/20at 22:41; Start 12/26/20 at 20:45 Active Scripts Active Reported Lipitor (Atorvastatin Calcium) 40 Mg Tablet 1 Tab PO QHS Vitals/I & O Vital Sign - Last 24 Hours 12/26/20 12/26/20 12/26/20 12/27/20 19:00 20:30 23:06 03:10 Temp 97.8 98.9 97.9 97.8 98.9 97.9 Pulse 95 94 Resp 20 18 20 B/P (MAP) 122/75 (91) 120/76 (91) 117/75 (89) Pulse Ox 99 95 96 O2 Delivery Room Air Room Air Room Air Room Air 12/27/20 12/27/20 12/27/20 12/27/20 03:11 07:00 08:00 11:28 Temp 97.9 98.1 98.1 97.9 98.1 98.1 Pulse 94 81 78 Resp 18 20 B/P (MAP) 117/75 (89) 119/80 (93) 123/78 (93) Pulse Ox 96 96 98 O2 Delivery Room Air Room Air Room Air Room Air O2 Flow Rate 1.0 12/27/20 15:06 Temp 98.0 98.0 Pulse 82 Resp 20 B/P (MAP) 136/76 (96) Pulse Ox 96 O2 Delivery Room Air Intake and Output 12/26/20 12/26/20 12/27/20 15:00 23:00 07:00 Intake Total 1000 ml 100 ml Output Total 250 ml 875 ml Balance 750 ml -775 ml Justifications for Admission Other Justification ROSE BOWMAN MD Dec 27, 2020 16:03
[2020-12-27] MEDS: ATORVASTATIN CALCIUM 40 MG TABLET. PO SCH ×2 (20:42→20:44)
[2020-12-28] MEDS: PIPERACILLIN/TAZOBACTAM 3.375 GM in IV NORMAL SALINE 50ML 50 ML IV SCH ×4 (05:33→23:48)
[2020-12-28 07:00] VITALS: BP 117/78
[2020-12-28] MEDS: ENOXAPARIN 40 MG/0.4 ML SYRINGE. SQ SCH (09:52)
[2020-12-28] MEDS: AMINO AC 3%/ELECTROLYTE/GLYCER 1,000 ML IV SCH ×2 (10:30→23:47)
[2020-12-28 11:00] VITALS: BP 127/72
--- NOTE | 2020-12-28 11:02 | PDOC ---
SURGICAL PROGRESS NOTE DATE: 12/28/20 TIME: 11:01 Subjective Patient states is about the same no appetite minimal pain Vital Signs Vital Signs Date Time Temp Pulse Resp B/P (MAP) Pulse Ox O2 Delivery O2 Flow Rate FiO2 12/28/20 08:00 Room Air 12/28/20 07:00 72 117/78 (91) 12/27/20 23:05 98.0 20 96 98.0 I&O Intake and Output 12/28/20 07:00 Intake Total 1650 ml Output Total 1450 ml Balance 200 ml Intake Oral 500 ml IV Total 1150 ml Output Urine Total 1350 ml Drainage Total 100 ml PATIENT HAS A KIRAN: No General: Alert, Oriented X3, Cooperative, mild distress Abdomen: Normal bowel sounds, Soft, Other (Wound clean dry and intact minimal incisional tenderness ROSETTA with serous output) Labs Laboratory Tests Test 12/26/20 12:15 Lactate Dehydrogenase 193 U/L (85-227) Hepatitis B Surface Antigen Nonreactive (Nonreactive) Hepatitis B Surface Antibody Nonreactive Hepatitis B Core Total Antibody Nonreactive (Nonreactive) Hepatitis C IgG Antibody Nonreactive (Nonreactive) HIV (1&2) Antibody Screen Nonreactive (Nonreactive) Problem List Problems Medical Problems: (1) Hypomagnesemia Status: Acute (2) Perforated appendicitis Status: Acute Assessment/Plan No acute changes continue supportive care Justicifation of Admission Dx: Justifications for Admission: Justification of Admission Dx: Comment: (Perforated appendicitis) VALARIE MONTGOMERY MD Dec 28, 2020 11:02
--- NOTE | 2020-12-28 11:25 | PDOC ---
PROGRESS NOTES Date of Service: DATE: 12/28/20 TIME: 11:25 Chief Complaint Chief Complaint impression Perforated appendicitis - abscess presence unclear, will f/u renal function to obtain CT with contrast vs US. NPO, IV pain control. Zosyn q6hrs. 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 Intractable abdominal pain - due to above, continue IV Dilaudid [employer]AL CLERK Sepsis - due to perforated diverticulitis - given empiric IVF and zosyn ALYSIA - likely vasomotor nephropathy given poor PO intake, continue IV fluid resuscitation, creatinine seems to be at baseline since no changes have been noted although it could be compromised due to his underlying infectious process Pelvic fluid collection - between seminal vesicles and rectum, possibly abscess, will repeat labs and try CT with contrast if renal function improves Elevated PSA - noted outpatient Bilateral hip osteoarthrosis - noted on CT Hypomagnesemia - Replace IV Elevated bilirubin - will monitor Moderate protein calorie malnutrition - will start on IV nutrition Pending oncology evaluation FEN -advance to clear liquid diet, procalamine PPX - heparin FULL CODE Dispo - inpatient for above, negative rapid covid19, continue IV antibiotics and bowel rest, will defer to surgery for further surgical decision making Procedure: Laparoscopic converted to open appendectomy, drainage of abdominal abscesses 12-20-20 Status post open appendectomy with 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 PET can be obtained as outpatient if not authorized by insurance as inpatient cbc , compr - pending 12-23 bowel function slow to return D/W RN 12-28 PAIN SLOW TO RESOLVE D/W RN History of Present Illness History of Present Illness Mr Rosales is a 60 year old male w/ PMHx HLD and recent elevated PSA of 13 who presented to ER due to intractable abdominal pain for the past 24 hours. He and his brother, bedside, note that his symptoms have been going on for a week intermittently and 5 days ago he felt his pain suddenly improve and then intermittently with cramping pain with eating for the past 3 days prior to prese ntation, but on 12/19/2020 it got significantly worse overnight and became constant, sharp in his RLQ with associated chills without fever. He is thirsty but has not been able to eat or drink without nausea, now has no appetite. He notes his urine output has dropped the last few days, but thought it was his prostate as a few months ago he had his PSA elevated. Patient denies any cough or chest pain or any trouble breathing. In ED noted to be tachycardic 100 bpm and febrile to 100.[address] abdomen/pelvis elongated masslike structure in the right lower quadrant with surrounding fat stranding suspicious for ruptured appendicitis with phlegmon or complex abscess. WBC 12.1, Hb 12.9, platelets 220, Na 139, K 3.6, BUN 12, Cr 1.8, glucose 87, Mg 1.5, lactic acid 2.8, Bilirubin 1.6, Albumin 2.8. Admitted for further care. 12/21: Patient with fever overnight and chills. Still having abdominal discomfort somewhat improved compared to admission. Discussed with assistant professor surgical technology. He may need surgery later in the day 12/22/2020 No acute events overnight. White count trending upwards. No fevers reported in the past 24 hours. Pain is controlled. Incision sites appears to be intact. Dressings are clear dry and intact. 12/23 d/w rn Pain is controlled. Incision sites appears to be intact. Dressings are clear dry and intact. 12/24/2020 No acute events overnight. Pain is moderately controlled. Redirected patient to use [employer]ERK. Patient does endorse flatus. Patient's chart, labs, images were reviewed and discussed with RN 12/25/2020 No acute events overnight. Patient seen and examined bedside. And up to chair. Pain is better controlled will DC [employer]AL [employer]ERK. Tolerating clears and having flatus. No bowel movement this time. Patient's chart, labs, images were reviewed and discussed with RN 12/26/2020 No acute events overnight. Patient seen and examined bedside. We will switch to tramadol for better pain control. Continue with [employer]ENTAL CLERK. Patient's chart, labs, images were reviewed and discussed with RN Vitals Vitals Vital Signs Date Time Temp Pulse Resp B/P (MAP) Pulse Ox O2 Delivery O2 Flow Rate FiO2 12/28/20 08:00 Room Air 12/28/20 07:00 72 117/78 (91) 12/27/20 23:05 98.0 20 96 98.0 Physical Exam General: Alert, Oriented X3, Cooperative, mild distress Heart: Regular rate Lungs: Clear Abdomen: Normal bowel sounds, Soft, Other (Wound clean dry and intact minimal incisional tenderness ROSETTA with serous output) Extremities: No clubbing, No cyanosis Skin: No rashes Assessment and Plan Assessmemt and Plan Problems Medical Problems: (1) Hypomagnesemia Status: Acute (2) Perforated appendicitis Status: Acute Comment Review of Relevant I have reviewed the following items demetra (where applicable) has been applied. Labs Laboratory Tests Test 12/26/20 12:15 Lactate Dehydrogenase 193 U/L (85-227) Hepatitis B Surface Antigen Nonreactive (Nonreactive) Hepatitis B Surface Antibody Nonreactive Hepatitis B Core Total Antibody Nonreactive (Nonreactive) Hepatitis C IgG Antibody Nonreactive (Nonreactive) HIV (1&2) Antibody Screen Nonreactive (Nonreactive) Microbiology 12/20/20 Blood Culture - Final, Complete NO GROWTH AFTER 5 DAYS Medications Current Medications Sodium Chloride 1,000 ml @ 1,000 mls/hr 1X ONCE IV Last administered on 12/20/20at 11:08; Start 12/20/20 at 11:15; Stop 12/20/20 at 12:14; Status DC Fentanyl Citrate (Fentanyl 2ml Vial) 50 mcg 1X ONCE IVP Last administered on 12/20/20at 12:31; Start 12/20/20 at 12:00; Stop 12/20/20 at 12:01; Status DC Piperacillin Sod/ Tazobactam Sod 3.375 gm/Sodium Chloride 50 ml @ 100 mls/hr 1X ONCE IV Last administered on 12/20/20at 12:15; Start 12/20/20 at 12:00; Stop 12/20/20 at 12:29; Status DC Magnesium Sulfate 50 ml @ 25 mls/hr 1X ONCE IV Last administered on 12/20/20at 12:16; Start 12/20/20 at 12:00; Stop 12/20/20 at 13:59; Status DC Sodium Chloride 1,000 ml @ 1,000 mls/hr 1X ONCE IV Last administered on 12/20/20at 13:16; Start 12/20/20 at 13:15; Stop 12/20/20 at 14:14; Status DC Fentanyl Citrate (Fentanyl 2ml Vial) 75 mcg 1X ONCE IVP Last administered on 12/20/20at 13:26; Start 12/20/20 at 13:45; Stop 12/20/20 at 13:46; Status DC Ondansetron HCl (Zofran) 4 mg PRN Q8HRS PRN IV NAUSEA/VOMITING; Start 12/20/20 at 13:15; Stop 12/20/20 at 13:46; Status DC Fentanyl Citrate (Fentanyl 2ml Vial) 50 mcg PRN Q1HR PRN IV PAIN; Start 12/20/20 at 13:15; Stop 12/21/20 at 13:14; Status DC Sodium Chloride 1,000 ml @ 100 mls/hr Q10H IV Last administered on 12/21/20at 11:05; Start 12/20/20 at 13:15; Stop 12/21/20 at 13:14; Status DC Sodium Chloride 1,000 ml @ 1,000 mls/hr 1X ONCE IV Last administered on 12/20/20at 13:30; Start 12/20/20 at 13:30; Stop 12/20/20 at 14:29; Status DC Piperacillin Sod/ Tazobactam Sod (Zosyn Per Pharmacy) 1 each PRN DAILY PRN MC SEE COMMENTS; Start 12/20/20 at 13:45 Ondansetron HCl (Zofran) 4 mg PRN Q4HRS PRN IV NAUSEA/VOMITING Last administered on 12/23/20at 05:17; Start 12/20/20 at 13:45 Acetaminophen (Tylenol Supp) 650 mg PRN Q4HRS PRN MA TEMP OVER 100.4F OR MILD PAIN Last administered on 12/21/20at 02:20; Start 12/20/20 at 13:45 Olanzapine (ZyPREXA ZYDIS) 5 mg PRN BID PRN PO ANXIETY / AGITATION; Start 12/20/20 at 13:45 Bisacodyl (Dulcolax Supp) 10 mg PRN DAILY PRN MA CONSTIPATION; Start 12/20/20 at 13:45 Heparin Sodium (Porcine) (Heparin Sodium) 5,000 unit BID ONCE SQ Last administered on 12/20/20at 20:08; Start 12/20/20 at 21:00; Stop 12/20/20 at 21:01; Status DC Morphine Sulfate (Morphine Sulfate) 4 mg PRN Q3HRS PRN IV SEVERE PAIN 7-10 Last administered on 12/21/20at 14:34; Start 12/20/20 at 13:45 Piperacillin Sod/ Tazobactam Sod 3.375 gm/Sodium Chloride 50 ml @ 100 mls/hr Q6HRS IV Last administered on 12/28/20at 11:05; Start 12/20/20 at 18:00 Amino Acids/ Glycerin/ Electrolytes 1,000 ml @ 80 mls/hr [id number] IV Last administered on 12/28/20at 10:30; Start 12/20/20 at 15:00 Potassium Chloride (Klor-Con) 40 meq 1X ONCE PO ; Start 12/21/20 at 10:00; Stop 12/21/20 at 10:01; Status DC Magnesium Sulfate/ Dextrose 100 ml @ 100 mls/hr 1X ONCE IV ; Start 12/21/20 at 10:00; Stop 12/21/20 at 10:59; Status DC Fentanyl Citrate (Fentanyl 2ml Vial) 25 mcg PRN Q5MIN PRN IVP MILD PAIN 1-3; Start 12/21/20 at 10:15; Stop 12/22/20 at 10:14; Status DC Fentanyl Citrate (Fentanyl 2ml Vial) 50 mcg PRN Q5MIN PRN IVP MODERATE PAIN 4- 6; Start 12/21/20 at 10:15; Stop 12/22/20 at 10:14; Status DC Morphine Sulfate (Morphine Sulfate) 1 mg PRN Q10MIN PRN IVP SEVERE PAIN 7-10; Start 12/21/20 at 10:15; Stop 12/22/20 at 10:14; Status DC Ringer's Solution 1,000 ml @ 30 mls/hr Q24H IV Last administered on 12/21/20at 14:23; Start 12/21/20 at 10:15; Stop 12/21/20 at 22:14; Status DC Hydromorphone HCl (Dilaudid) 0.5 mg PRN Q10MIN PRN IVP SEVERE PAIN 7-10, 2nd C HOICE; Start 12/21/20 at 10:15; Stop 12/22/20 at 10:14; Status DC Prochlorperazine Edisylate (Compazine) 5 mg PACU PRN PRN IVP NAUSEA, MRX1 Last administered on 12/21/20at 14:34; Start 12/21/20 at 10:15; Stop 12/22/20 at 10:14; Status DC Potassium Chloride/Water 100 ml @ 100 mls/hr Q1H IV Last administered on 12/21/20at 18:05; Start 12/21/20 at 12:00; Stop 12/21/20 at 15:59; Status DC Sevoflurane (Ultane) 90 ml STK-MED ONCE IH ; Start 12/21/20 at 10:52; Stop 12/21/20 at 10:52; Status DC Succinylcholine Chloride (Anectine) 200 mg STK-MED ONCE .ROUTE ; Start 12/21/20 at 10:52; Stop 12/21/20 at 10:52; Status DC Neostigmine [place] (Neostigmine Methylsulfate) 5 mg STK-MED ONCE .ROUTE ; Start 12/21/20 at 10:52; Stop 12/21/20 at 10:52; Status DC Rocuronium [place] (Zemuron) 50 mg STK-MED ONCE .ROUTE ; Start 12/21/20 at 10:52; Stop 12/21/20 at 10:52; Status DC Fentanyl Citrate (Fentanyl 2ml Vial) 100 mcg STK-MED ONCE .ROUTE ; Start 12/21/20 at 10:52; Stop 12/21/20 at 10:53; Status DC Midazolam HCl (Versed) 2 mg STK-MED ONCE .ROUTE ; Start 12/21/20 at 10:53; Stop 12/21/20 at 10:53; Status DC Glycopyrrolate (Robinul) 1 mg STK-MED ONCE .ROUTE ; Start 12/21/20 at 10:53; Stop 12/21/20 at 10:53; Status DC Propofol (Diprivan) 200 mg STK-MED ONCE IV ; Start 12/21/20 at 10:53; Stop at 10:53; Status DC Dexamethasone Sodium Phosphate (Decadron) 4 mg STK-MED ONCE .ROUTE ; Start 12/21/20 at 10:53; Stop 12/21/20 at 10:53; Status DC Ondansetron HCl (Zofran) 4 mg STK-MED ONCE .ROUTE ; Start 12/21/20 at 10:53; Stop 12/21/20 at 10:53; Status DC Lidocaine HCl (Lidocaine Pf 2% Vial) 5 ml STK-MED ONCE .ROUTE ; Start 12/21/20 at 10:53; Stop 12/21/20 at 10:53; Status DC Sodium Chloride 1,000 ml @ 1,000 mls/hr 1X ONCE IV Last administered on 12/21/20at 11:09; Start 12/21/20 at 11:00; Stop 12/21/20 at 11:59; Status DC Bupivacaine HCl/ Epinephrine Bitart (Sensorcain-Epi 0.5% Kit) 30 ml STK-MED ONCE .ROUTE ; Start 12/21/20 at 11:10; Stop 12/21/20 at 11:11; Status DC Sterile Water 10 ml @ As Directed STK-MED ONCE IJ ; Start 12/21/20 at 11:43; Stop 12/21/20 at 11:43; Status DC Ephedrine Sulfate (ePHEDrine PF IN SALINE SYRINGE) 50 mg STK-MED ONCE IV ; Start 12/21/20 at 12:25; Stop 12/21/20 at 12:25; Status DC Phenylephrine HCl (PHENYLEPHRINE in 0.9% NACL PF) 1 mg STK-MED ONCE IV ; Start 12/21/20 at 12:32; Stop 12/21/20 at 12:32; Status DC Fentanyl Citrate (Fentanyl 2ml Vial) 100 mcg STK-MED ONCE .ROUTE ; Start 12/21/20 at 12:49; Stop 12/21/20 at 12:50; Status DC Rocuronium [place] (Zemuron) 50 mg STK-MED ONCE .ROUTE ; Start 12/21/20 at 12:51; Stop 12/21/20 at 12:51; Status DC Naloxone HCl (Narcan) 0.4 mg PRN Q2MIN PRN IV SEE INSTRUCTIONS; Start 12/21/20 at 14:00 Sodium Chloride 1,000 ml @ 25 mls/hr Q24H IV Last administered on 12/24/20at 23:15; Start 12/21/20 at 14:00; Stop 12/25/20 at 20:08; Status DC Hydromorphone HCl 30 ml @ 0 mls/hr CONT PRN PRN IV PER PROTOCOL Last administered on 12/21/20at 14:52; Start 12/21/20 at 14:00; Stop 12/25/20 at 08:52; Status DC Prochlorperazine Edisylate (Compazine) 10 mg STK-MED ONCE .ROUTE ; Start 12/21/20 at 14:17; Stop 12/21/20 at 14:17; Status DC Enoxaparin Sodium (Lovenox 40mg Syringe) 40 mg Q24H SQ Last administered on 12/27/20at 09:28; Start 12/23/20 at 10:00 Hydromorphone HCl (Dilaudid) 0.4 mg PRN Q4HRS PRN IVP MODERATE PAIN Last administered on 12/26/20at 06:39; Start 12/25/20 at 09:00 Oxycodone/ Acetaminophen (Percocet 5/325) 1 tab PRN Q4HRS PRN PO PAIN Last administered on 12/26/20at 01:28; Start 12/25/20 at 09:00; Stop 12/26/20 at 09:04; Status DC Atorvastatin Calcium (Lipitor) 40 mg QHS PO Last administered on 12/26/20at 22:41; Start 12/25/20 at 21:00 Tramadol HCl (Ultram) 50 mg PRN Q6HRS PRN PO MODERATE TO SEVERE PAIN Last administered on 12/26/20at 09:54; Start 12/26/20 at 09:15 Acetaminophen (Tylenol) 650 mg PRN Q4HRS PRN PO TEMP > 100.3'F Last administered on 12/26/20at 22:41; Start 12/26/20 at 20:45 Active Scripts Active Reported Lipitor (Atorvastatin Calcium) 40 Mg Tablet 1 Tab PO QHS Vitals/I & O Vital Sign - Last 24 Hours 12/27/20 12/27/20 12/27/20 12/27/20 11:28 15:06 19:00 19:00 Temp 98.1 98.0 98.3 98.1 98.0 98.3 Pulse 78 82 85 Resp 20 20 18 B/P (MAP) 123/78 (93) 136/76 (96) 103/73 (83) Pulse Ox 98 96 97 O2 Delivery Room Air Room Air Room Air Room Air 12/27/20 12/28/20 12/28/20 23:05 07:00 08:00 Temp 98.0 98.0 Pulse 79 72 Resp 20 B/P (MAP) 115/83 (94) 117/78 (91) Pulse Ox 96 O2 Delivery Room Air Room Air Intake and Output 12/27/20 12/27/20 12/28/20 15:00 23:00 07:00 Intake Total 400 ml 1150 ml 100 ml Output Total 1025 ml 425 ml Balance 400 ml 125 ml -325 ml Justicifation of Admission Dx: Justifications for Admission: Justification of Admission Dx: Comment: (Perforated appendicitis) VALARIE GUZMÁN MD Dec 28, 2020 11:25
[2020-12-28 15:00] VITALS: BP 120/76
[2020-12-28] MEDS: ACETAMINOPHEN 325 MG TABLET. PO PRN (18:15)
[2020-12-28 19:00] VITALS: BP 98/58
[2020-12-28] MEDS ORDERED: CALCIUM CARBONATE 500 MG TAB.CHEW PO PRN (20:00)
[2020-12-28] MEDS: ATORVASTATIN CALCIUM 40 MG TABLET. PO SCH (20:17)
[2020-12-28 23:06] VITALS: BP 108/65
[2020-12-29] MEDS: PIPERACILLIN/TAZOBACTAM 3.375 GM in IV NORMAL SALINE 50ML 50 ML IV SCH ×3 (06:19→18:00)
[2020-12-29 07:00] VITALS: BP 109/70
[2020-12-29 09:44] LABS: BASO % 0 % (0-3); EOS # 0.2 x10^3/uL (0.0-0.7); EOS % 2 % (0-3); HEMATOCRIT 38.7 % (39.0-53.0); HEMOGLOBIN 12.9 g/dL (13.0-17.5); LYMPH # 1.4 x10^3/uL (1.0-4.8); LYMPH % 11 % (24-48); MEAN CORPUSCULAR HEMOGLOBIN 28 pg (25-35); MEAN CORPUSCULAR HGB CONC 33 g/dL (31-37); MEAN CORPUSCULAR VOLUME 84 fL (79-100); MONO % 8 % (0-9); NEUT # 10.2 x10^3/uL (1.8-7.7); NEUT % 79 % (31-73); PLATELET COUNT 519 x10^3/uL (140-400); RED BLOOD COUNT 4.61 x10^6/uL (4.30-5.70); RED CELL DISTRIBUTION WIDTH 13.8 % (11.5-14.5); WHITE BLOOD COUNT 12.9 x10^3/uL (4.0-11.0)
[2020-12-29 10:05] LABS: ALBUMIN 2.3 g/dL (3.4-5.0); ALBUMIN/GLOBULIN RATIO 0.5 (1.0-1.7); CALCIUM 9.2 mg/dL (8.5-10.1); CREATININE 1.1 mg/dL (0.7-1.3); GFR 82.9; POTASSIUM 4.1 mmol/L (3.5-5.1); TOTAL BILIRUBIN 0.7 mg/dL (0.2-1.0); TOTAL PROTEIN 6.5 g/dL (6.4-8.2)
[2020-12-29 11:00] VITALS: BP 109/78
--- NOTE | 2020-12-29 11:30 | PDOC ---
RITA CENTENO [employer] SHE[employer] OPERATOR 12/29/20 1130: SURGICAL PROGRESS NOTE DATE: 12/29/20 TIME: 11:27 Subjective doing ok thinks maybe to [facility] for opinion on treatment + BM Vital Signs Vital Signs Date Time Temp Pulse Resp B/P (MAP) Pulse Ox O2 Delivery O2 Flow Rate FiO2 12/28/20 23:06 97.3 80 20 108/65 (79) 99 Room Air 97.3 I&O Intake and Output 12/29/20 07:00 Intake Total 170 ml Output Total 700 ml Balance -530 ml Intake Oral 170 ml Output Urine Total 700 ml # Voids 2 # Bowel Movements 2 General: Alert, Oriented X3, Cooperative Abdomen: Soft, Other (incision intact, delvin serous, cristobal in place) Labs Laboratory Tests Test 12/29/20 09:06 White Blood Count 12.9 x10^3/uL (4.0-11.0) Red Blood Count 4.61 x10^6/uL (4.30-5.70) Hemoglobin 12.9 g/dL (13.0-17.5) Hematocrit 38.7 % (39.0-53.0) Mean Corpuscular Volume 84 fL (79-100) Mean Corpuscular Hemoglobin 28 pg (25-35) Mean Corpuscular Hemoglobin Concent 33 g/dL (31-37) Red Cell Distribution Width 13.8 % (11.5-14.5) Platelet Count 519 x10^3/uL (140-400) Neutrophils (%) (Auto) 79 % (31-73) Lymphocytes (%) (Auto) 11 % (24-48) Monocytes (%) (Auto) 8 % (0-9) Eosinophils (%) (Auto) 2 % (0-3) Basophils (%) (Auto) 0 % (0-3) Neutrophils # (Auto) 10.2 x10^3/uL (1.8-7.7) Lymphocytes # (Auto) 1.4 x10^3/uL (1.0-4.8) Monocytes # (Auto) 1.0 x10^3/uL (0.0-1.1) Eosinophils # (Auto) 0.2 x10^3/uL (0.0-0.7) Basophils # (Auto) 0.0 x10^3/uL (0.0-0.2) Sodium Level 135 mmol/L (136-145) Potassium Level 4.1 mmol/L (3.5-5.1) Chloride Level 101 mmol/L (98-107) Carbon Dioxide Level 22 mmol/L (21-32) Anion Gap 12 (6-14) Blood Urea Nitrogen 18 mg/dL (8-26) Creatinine 1.1 mg/dL (0.7-1.3) Estimated GFR (Cockcroft-Gault) 82.9 BUN/Creatinine Ratio 16 (6-20) Glucose Level 92 mg/dL (70-99) Calcium Level 9.2 mg/dL (8.5-10.1) Total Bilirubin 0.7 mg/dL (0.2-1.0) Aspartate Amino Transf (AST/SGOT) 21 U/L (15-37) Alanine Aminotransferase (ALT/SGPT) 28 U/L (16-63) Alkaline Phosphatase 89 U/L (46-116) Total Protein 6.5 g/dL (6.4-8.2) Albumin 2.3 g/dL (3.4-5.0) Albumin/Globulin Ratio 0.5 (1.0-1.7) Laboratory Tests Test 12/29/20 09:06 White Blood Count 12.9 x10^3/uL (4.0-11.0) Red Blood Count 4.61 x10^6/uL (4.30-5.70) Hemoglobin 12.9 g/dL (13.0-17.5) Hematocrit 38.7 % (39.0-53.0) Mean Corpuscular Volume 84 fL (79-100) Mean Corpuscular Hemoglobin 28 pg (25-35) Mean Corpuscular Hemoglobin Concent 33 g/dL (31-37) Red Cell Distribution Width 13.8 % (11.5-14.5) Platelet Count 519 x10^3/uL (140-400) Neutrophils (%) (Auto) 79 % (31-73) Lymphocytes (%) (Auto) 11 % (24-48) Monocytes (%) (Auto) 8 % (0-9) Eosinophils (%) (Auto) 2 % (0-3) Basophils (%) (Auto) 0 % (0-3) Neutrophils # (Auto) 10.2 x10^3/uL (1.8-7.7) Lymphocytes # (Auto) 1.4 x10^3/uL (1.0-4.8) Monocytes # (Auto) 1.0 x10^3/uL (0.0-1.1) Eosinophils # (Auto) 0.2 x10^3/uL (0.0-0.7) Basophils # (Auto) 0.0 x10^3/uL (0.0-0.2) Sodium Level 135 mmol/L (136-145) Potassium Level 4.1 mmol/L (3.5-5.1) Chloride Level 101 mmol/L (98-107) Carbon Dioxide Level 22 mmol/L (21-32) Anion Gap 12 (6-14) Blood Urea Nitrogen 18 mg/dL (8-26) Creatinine 1.1 mg/dL (0.7-1.3) Estimated GFR (Cockcroft-Gault) 82.9 BUN/Creatinine Ratio 16 (6-20) Glucose Level 92 mg/dL (70-99) Calcium Level 9.2 mg/dL (8.5-10.1) Total Bilirubin 0.7 mg/dL (0.2-1.0) Aspartate Amino Transf (AST/SGOT) 21 U/L (15-37) Alanine Aminotransferase (ALT/SGPT) 28 U/L (16-63) Alkaline Phosphatase 89 U/L (46-116) Total Protein 6.5 g/dL (6.4-8.2) Albumin 2.3 g/dL (3.4-5.0) Albumin/Globulin Ratio 0.5 (1.0-1.7) Problem List Problems Medical Problems: (1) Hypomagnesemia Status: Acute (2) Perforated appendicitis Status: Acute Assessment/Plan improving slowly, soft diet watch drain output--serous, yesterday 375 cc out oncology FU Justicifation of Admission Dx: Justifications for Admission: Justification of Admission Dx: Comment: (Perforated appendicitis) YOMAIRA CASTILLO MD 12/29/20 1217: SURGICAL PROGRESS NOTE Assessment/Plan Agree with above RITA CENTENO [employer] OPERATOR Dec 29, 2020 11:30 YOMAIRA CASTILLO MD Dec 29, 2020 12:17
[2020-12-29] MEDS: ENOXAPARIN 40 MG/0.4 ML SYRINGE. SQ SCH (13:37)
[2020-12-29 15:00] VITALS: BP 117/68
--- NOTE | 2020-12-29 16:36 | NUR ---
This SW asked to complete durable power of wood cut engraver for health care. SW met with pt and pt's family. Pt a/o and able to make needs known. POA for HC completed and notarized and copy placed on chart. Pt listed his mother Elmira Yip ([phone]) as his primary agent, his brother Edvin Connie Garcia ([phone]) as his first alternate agent, and his brother Servando Connie Garcia ([phone]) as his second alternative agent. No further needs from this SW.
[2020-12-29] MEDS: AMINO AC 3%/ELECTROLYTE/GLYCER 1,000 ML IV SCH (17:57)
[2020-12-29 19:00] VITALS: BP 118/72
--- NOTE | 2020-12-29 19:12 | PDOC ---
PROGRESS NOTES Date of Service: DATE: 12/29/20 TIME: 19:10 Chief Complaint Chief Complaint acute Perforated appendicitis - abscess presence unclear, will f/u renal function to obtain CT with contrast vs US. NPO, IV pain control. Zosyn q6hrs. 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 Intractable abdominal pain - due to above, continue IV Dilaudid FILM MASKER Sepsis - due to perforated diverticulitis - given empiric IVF and zosyn ALYSIA - likely vasomotor nephropathy given poor PO intake, continue IV fluid resuscitation, creatinine seems to be at baseline since no changes have been noted although it could be compromised due to his underlying infectious process Pelvic fluid collection - between seminal vesicles and rectum, possibly abscess, will repeat labs and try CT with contrast if renal function improves Elevated PSA - noted outpatient Bilateral hip osteoarthrosis - noted on CT Hypomagnesemia - Replace IV Elevated bilirubin - will monitor Moderate protein calorie malnutrition - will start on IV nutrition History of Present Illness History of Present Illness discussion with oncology, he will revisit the idea of treatmetn when he feels imrpoved 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 He and his brother, maria, note that his symptoms have been going on for a week intermittently and 5 days ago he felt his pain suddenly improve and then intermittently with cramping pain with eating for the past 3 days prior to presentation, but on 12/19/2020 it got significantly worse overnight and became constant, sharp in his RLQ with associated chills without fever. He is thirsty but has not been able to eat or drink without nausea, now has no appetite. He notes his urine output has dropped the last few days, but thought it was his prostate as a few months ago he had his PSA elevated. Patient denies any cough or chest pain or any trouble breathing. In ED noted to be tachycardic 100 bpm and febrile to 100.[address] abdomen/pelvis elongated masslike structure in the right lower quadrant with surrounding fat stranding suspicious for ruptured appendicitis with phlegmon or complex abscess. WBC 12.1, Hb 12.9, platelets 220, Na 139, K 3.6, BUN 12, Cr 1.8, glucose 87, Mg 1.5, lactic acid 2.8, Bilirubin 1.6, Albumin 2.8. Admitted for further care. 12/21: Patient with fever overnight and chills. Still having abdominal discomfort somewhat improved compared to admission. Discussed with surgical coder. He may need surgery later in the day 12/22/2020 No acute events overnight. White count trending upwards. No fevers reported in the past 24 hours. Pain is controlled. Incision sites appears to be intact. D ressings are clear dry and intact. 12/23 d/w rn Pain is controlled. Incision sites appears to be intact. Dressings are clear dry and intact. 12/24/2020 No acute events overnight. Pain is moderately controlled. Redirected patient to use FILM MASKER. Patient does endorse flatus. Patient's chart, labs, images were reviewed and discussed with RN 12/25/2020 No acute events overnight. Patient seen and examined bedside. And up to chair. Pain is better controlled will DC FILM MASKER. Tolerating clears and having flatus. No bowel movement this time. Patient's chart, labs, images were reviewed and discussed with RN 12/26/2020 No acute events overnight. Patient seen and examined bedside. We will switch to tramadol for better pain control. Continue with FILM MASKER. Patient's chart, labs, images were reviewed and discussed with RN Vitals Vitals Vital Signs Date Time Temp Pulse Resp B/P (MAP) Pulse Ox O2 Delivery O2 Flow Rate FiO2 12/29/20 15:00 97.7 72 18 117/68 (84) 99 Room Air 97.7 Physical Exam General: Alert, Oriented X3, Cooperative Heart: Regular rate Lungs: Clear Abdomen: Soft, Other (incision intact, delvin serous, cristobal in place) Extremities: No clubbing, No cyanosis Skin: No rashes Labs LABS Laboratory Tests Test 12/29/20 09:06 White Blood Count 12.9 x10^3/uL (4.0-11.0) Red Blood Count 4.61 x10^6/uL (4.30-5.70) Hemoglobin 12.9 g/dL (13.0-17.5) Hematocrit 38.7 % (39.0-53.0) Mean Corpuscular Volume 84 fL (79-100) Mean Corpuscular Hemoglobin 28 pg (25-35) Mean Corpuscular Hemoglobin Concent 33 g/dL (31-37) Red Cell Distribution Width 13.8 % (11.5-14.5) Platelet Count 519 x10^3/uL (140-400) Neutrophils (%) (Auto) 79 % (31-73) Lymphocytes (%) (Auto) 11 % (24-48) Monocytes (%) (Auto) 8 % (0-9) Eosinophils (%) (Auto) 2 % (0-3) Basophils (%) (Auto) 0 % (0-3) Neutrophils # (Auto) 10.2 x10^3/uL (1.8-7.7) Lymphocytes # (Auto) 1.4 x10^3/uL (1.0-4.8) Monocytes # (Auto) 1.0 x10^3/uL (0.0-1.1) Eosinophils # (Auto) 0.2 x10^3/uL (0.0-0.7) Basophils # (Auto) 0.0 x10^3/uL (0.0-0.2) Sodium Level 135 mmol/L (136-145) Potassium Level 4.1 mmol/L (3.5-5.1) Chloride Level 101 mmol/L (98-107) Carbon Dioxide Level 22 mmol/L (21-32) Anion Gap 12 (6-14) Blood Urea Nitrogen 18 mg/dL (8-26) Creatinine 1.1 mg/dL (0.7-1.3) Estimated GFR (Cockcroft-Gault) 82.9 BUN/Creatinine Ratio 16 (6-20) Glucose Level 92 mg/dL (70-99) Calcium Level 9.2 mg/dL (8.5-10.1) Total Bilirubin 0.7 mg/dL (0.2-1.0) Aspartate Amino Transf (AST/SGOT) 21 U/L (15-37) Alanine Aminotransferase (ALT/SGPT) 28 U/L (16-63) Alkaline Phosphatase 89 U/L (46-116) Total Protein 6.5 g/dL (6.4-8.2) Albumin 2.3 g/dL (3.4-5.0) Albumin/Globulin Ratio 0.5 (1.0-1.7) Assessment and Plan Assessmemt and Plan Problems Medical Problems: (1) Hypomagnesemia Status: Acute (2) Perforated appendicitis Status: Acute Comment Review of Relevant I have reviewed the following items demetra (where applicable) has been applied. Labs Laboratory Tests Test 12/29/20 09:06 White Blood Count 12.9 x10^3/uL (4.0-11.0) Red Blood Count 4.61 x10^6/uL (4.30-5.70) Hemoglobin 12.9 g/dL (13.0-17.5) Hematocrit 38.7 % (39.0-53.0) Mean Corpuscular Volume 84 fL (79-100) Mean Corpuscular Hemoglobin 28 pg (25-35) Mean Corpuscular Hemoglobin Concent 33 g/dL (31-37) Red Cell Distribution Width 13.8 % (11.5-14.5) Platelet Count 519 x10^3/uL (140-400) Neutrophils (%) (Auto) 79 % (31-73) Lymphocytes (%) (Auto) 11 % (24-48) Monocytes (%) (Auto) 8 % (0-9) Eosinophils (%) (Auto) 2 % (0-3) Basophils (%) (Auto) 0 % (0-3) Neutrophils # (Auto) 10.2 x10^3/uL (1.8-7.7) Lymphocytes # (Auto) 1.4 x10^3/uL (1.0-4.8) Monocytes # (Auto) 1.0 x10^3/uL (0.0-1.1) Eosinophils # (Auto) 0.2 x10^3/uL (0.0-0.7) Basophils # (Auto) 0.0 x10^3/uL (0.0-0.2) Sodium Level 135 mmol/L (136-145) Potassium Level 4.1 mmol/L (3.5-5.1) Chloride Level 101 mmol/L (98-107) Carbon Dioxide Level 22 mmol/L (21-32) Anion Gap 12 (6-14) Blood Urea Nitrogen 18 mg/dL (8-26) Creatinine 1.1 mg/dL (0.7-1.3) Estimated GFR (Cockcroft-Gault) 82.9 BUN/Creatinine Ratio 16 (6-20) Glucose Level 92 mg/dL (70-99) Calcium Level 9.2 mg/dL (8.5-10.1) Total Bilirubin 0.7 mg/dL (0.2-1.0) Aspartate Amino Transf (AST/SGOT) 21 U/L (15-37) Alanine Aminotransferase (ALT/SGPT) 28 U/L (16-63) Alkaline Phosphatase 89 U/L (46-116) Total Protein 6.5 g/dL (6.4-8.2) Albumin 2.3 g/dL (3.4-5.0) Albumin/Globulin Ratio 0.5 (1.0-1.7) Laboratory Tests Test 12/29/20 09:06 White Blood Count 12.9 x10^3/uL (4.0-11.0) Red Blood Count 4.61 x10^6/uL (4.30-5.70) Hemoglobin 12.9 g/dL (13.0-17.5) Hematocrit 38.7 % (39.0-53.0) Mean Corpuscular Volume 84 fL (79-100) Mean Corpuscular Hemoglobin 28 pg (25-35) Mean Corpuscular Hemoglobin Concent 33 g/dL (31-37) Red Cell Distribution Width 13.8 % (11.5-14.5) Platelet Count 519 x10^3/uL (140-400) Neutrophils (%) (Auto) 79 % (31-73) Lymphocytes (%) (Auto) 11 % (24-48) Monocytes (%) (Auto) 8 % (0-9) Eosinophils (%) (Auto) 2 % (0-3) Basophils (%) (Auto) 0 % (0-3) Neutrophils # (Auto) 10.2 x10^3/uL (1.8-7.7) Lymphocytes # (Auto) 1.4 x10^3/uL (1.0-4.8) Monocytes # (Auto) 1.0 x10^3/uL (0.0-1.1) Eosinophils # (Auto) 0.2 x10^3/uL (0.0-0.7) Basophils # (Auto) 0.0 x10^3/uL (0.0-0.2) Sodium Level 135 mmol/L (136-145) Potassium Level 4.1 mmol/L (3.5-5.1) Chloride Level 101 mmol/L (98-107) Carbon Dioxide Level 22 mmol/L (21-32) Anion Gap 12 (6-14) Blood Urea Nitrogen 18 mg/dL (8-26) Creatinine 1.1 mg/dL (0.7-1.3) Estimated GFR (Cockcroft-Gault) 82.9 BUN/Creatinine Ratio 16 (6-20) Glucose Level 92 mg/dL (70-99) Calcium Level 9.2 mg/dL (8.5-10.1) Total Bilirubin 0.7 mg/dL (0.2-1.0) Aspartate Amino Transf (AST/SGOT) 21 U/L (15-37) Alanine Aminotransferase (ALT/SGPT) 28 U/L (16-63) Alkaline Phosphatase 89 U/L (46-116) Total Protein 6.5 g/dL (6.4-8.2) Albumin 2.3 g/dL (3.4-5.0) Albumin/Globulin Ratio 0.5 (1.0-1.7) Microbiology 12/20/20 Blood Culture - Final, Complete NO GROWTH AFTER 5 DAYS Medications Current Medications Sodium Chloride 1,000 ml @ 1,000 mls/hr 1X ONCE IV Last administered on 12/20/20at 11:08; Start 12/20/20 at 11:15; Stop 12/20/20 at 12:14; Status DC Fentanyl Citrate (Fentanyl 2ml Vial) 50 mcg 1X ONCE IVP Last administered on 12/20/20at 12:31; Start 12/20/20 at 12:00; Stop 12/20/20 at 12:01; Status DC Piperacillin Sod/ Tazobactam Sod 3.375 gm/Sodium Chloride 50 ml @ 100 mls/hr 1X ONCE IV Last administered on 12/20/20at 12:15; Start 12/20/20 at 12:00; Stop 12/20/20 at 12:29; Status DC Magnesium Sulfate 50 ml @ 25 mls/hr 1X ONCE IV Last administered on 12/20/20at 12:16; Start 12/20/20 at 12:00; Stop 12/20/20 at 13:59; Status DC Sodium Chloride 1,000 ml @ 1,000 mls/hr 1X ONCE IV Last administered on 12/20/20at 13:16; Start 12/20/20 at 13:15; Stop 12/20/20 at 14:14; Status DC Fentanyl Citrate (Fentanyl 2ml Vial) 75 mcg 1X ONCE IVP Last administered on 12/20/20at 13:26; Start 12/20/20 at 13:45; Stop 12/20/20 at 13:46; Status DC Ondansetron HCl (Zofran) 4 mg PRN Q8HRS PRN IV NAUSEA/VOMITING; Start 12/20/20 at 13:15; Stop 12/20/20 at 13:46; Status DC Fentanyl Citrate (Fentanyl 2ml Vial) 50 mcg PRN Q1HR PRN IV PAIN; Start 12/20/20 at 13:15; Stop 12/21/20 at 13:14; Status DC Sodium Chloride 1,000 ml @ 100 mls/hr Q10H IV Last administered on 12/21/20at 11:05; Start 12/20/20 at 13:15; Stop 12/21/20 at 13:14; Status DC Sodium Chloride 1,000 ml @ 1,000 mls/hr 1X ONCE IV Last administered on 12/20/20at 13:30; Start 12/20/20 at 13:30; Stop 12/20/20 at 14:29; Status DC Piperacillin Sod/ Tazobactam Sod (Zosyn Per Pharmacy) 1 each PRN DAILY PRN MC SEE COMMENTS; Start 12/20/20 at 13:45 Ondansetron HCl (Zofran) 4 mg PRN Q4HRS PRN IV NAUSEA/VOMITING Last administered on 12/23/20at 05:17; Start 12/20/20 at 13:45 Acetaminophen (Tylenol Supp) 650 mg PRN Q4HRS PRN [place] TEMP OVER 100.4F OR MILD PAIN Last administered on 12/21/20at 02:20; Start 12/20/20 at 13:45 Olanzapine (ZyPREXA ZYDIS) 5 mg PRN BID PRN PO ANXIETY / AGITATION; Start 12/20/20 at 13:45 Bisacodyl (Dulcolax Supp) 10 mg PRN DAILY PRN [place] CONSTIPATION; Start 12/20/20 at 13:45 Heparin Sodium (Porcine) (Heparin Sodium) 5,000 unit BID ONCE SQ Last administered on 12/20/20at 20:08; Start 12/20/20 at 21:00; Stop 12/20/20 at 21:01; Status DC Morphine Sulfate (Morphine Sulfate) 4 mg PRN Q3HRS PRN IV SEVERE PAIN 7-10 Last administered on 12/21/20at 14:34; Start 12/20/20 at 13:45 Piperacillin Sod/ Tazobactam Sod 3.375 gm/Sodium Chloride 50 ml @ 100 mls/hr Q6HRS IV Last administered on 12/29/20at 12:09; Start 12/20/20 at 18:00 Amino Acids/ Glycerin/ Electrolytes 1,000 ml @ 80 mls/hr [id number] IV Last administered on 12/29/20at 17:57; Start 12/20/20 at 15:00 Potassium Chloride (Klor-Con) 40 meq 1X ONCE PO ; Start 12/21/20 at 10:00; Stop 12/21/20 at 10:01; Status DC Magnesium Sulfate/ Dextrose 100 ml @ 100 mls/hr 1X ONCE IV ; Start 12/21/20 at 10:00; Stop 12/21/20 at 10:59; Status DC Fentanyl Citrate (Fentanyl 2ml Vial) 25 mcg PRN Q5MIN PRN IVP MILD PAIN 1-3; Start 12/21/20 at 10:15; Stop 12/22/20 at 10:14; Status DC Fentanyl Citrate (Fentanyl 2ml Vial) 50 mcg PRN Q5MIN PRN IVP MODERATE PAIN 4- 6; Start 12/21/20 at 10:15; Stop 12/22/20 at 10:14; Status DC Morphine Sulfate (Morphine Sulfate) 1 mg PRN Q10MIN PRN IVP SEVERE PAIN 7-10; Start 12/21/20 at 10:15; Stop 12/22/20 at 10:14; Status DC Ringer's Solution 1,000 ml @ 30 mls/hr Q24H IV Last administered on 12/21/20at 14:23; Start 12/21/20 at 10:15; Stop 12/21/20 at 22:14; Status DC Hydromorphone HCl (Dilaudid) 0.5 mg PRN Q10MIN PRN IVP SEVERE PAIN 7-10, 2nd CHOICE; Start 12/21/20 at 10:15; Stop 12/22/20 at 10:14; Status DC Prochlorperazine Edisylate (Compazine) 5 mg PACU PRN PRN IVP NAUSEA, MRX1 Last administered on 12/21/20at 14:34; Start 12/21/20 at 10:15; Stop 12/22/20 at 10:14; Status DC Potassium Chloride/Water 100 ml @ 100 mls/hr Q1H IV Last administered on 12/21/20at 18:05; Start 12/21/20 at 12:00; Stop 12/21/20 at 15:59; Status DC Sevoflurane (Ultane) 90 ml STK-MED ONCE IH ; Start 12/21/20 at 10:52; Stop 12/21/20 at 10:52; Status DC Succinylcholine Chloride (Anectine) 200 mg STK-MED ONCE .ROUTE ; Start 12/21/20 at 10:52; Stop 12/21/20 at 10:52; Status DC Neostigmine [place] (Neostigmine Methylsulfate) 5 mg STK-MED ONCE .ROUTE ; Start 12/21/20 at 10:52; Stop 12/21/20 at 10:52; Status DC Rocuronium [place] (Zemuron) 50 mg STK-MED ONCE .ROUTE ; Start 12/21/20 at 10:52; Stop 12/21/20 at 10:52; Status DC Fentanyl Citrate (Fentanyl 2ml Vial) 100 mcg STK-MED ONCE .ROUTE ; Start 12/21/20 at 10:52; Stop 12/21/20 at 10:53; Status DC Midazolam HCl (Versed) 2 mg STK-MED ONCE .ROUTE ; Start 12/21/20 at 10:53; Stop 12/21/20 at 10:53; Status DC Glycopyrrolate (Robinul) 1 mg STK-MED ONCE .ROUTE ; Start 12/21/20 at 10:53; Stop 12/21/20 at 10:53; Status DC Propofol (Diprivan) 200 mg STK-MED ONCE IV ; Start 12/21/20 at 10:53; Stop 12/21/20 at 10:53; Status DC Dexamethasone Sodium Phosphate (Decadron) 4 mg STK-MED ONCE .ROUTE ; Start 12/21/20 at 10:53; Stop 12/21/20 at 10:53; Status DC Ondansetron HCl (Zofran) 4 mg STK-MED ONCE .ROUTE ; Start 12/21/20 at 10:53; Stop 12/21/20 at 10:53; Status DC Lidocaine HCl (Lidocaine Pf 2% Vial) 5 ml STK-MED ONCE .ROUTE ; Start 12/21/20 at 10:53; Stop 12/21/20 at 10:53; Status DC Sodium Chloride 1,000 ml @ 1,000 mls/hr 1X ONCE IV Last administered on 12/21/20at 11:09; Start 12/21/20 at 11:00; Stop 12/21/20 at 11:59; Status DC Bupivacaine HCl/ Epinephrine Bitart (Sensorcain-Epi 0.5% Kit) 30 ml STK-MED ONCE .ROUTE ; Start 12/21/20 at 11:10; Stop 12/21/20 at 11:11; Status DC Sterile Water 10 ml @ As Directed STK-MED ONCE IJ ; Start 12/21/20 at 11:43; Stop 12/21/20 at 11:43; Status DC Ephedrine Sulfate (ePHEDrine PF IN SALINE SYRINGE) 50 mg STK-MED ONCE IV ; Start 12/21/20 at 12:25; Stop 12/21/20 at 12:25; Status DC Phenylephrine HCl (PHENYLEPHRINE in 0.9% NACL PF) 1 mg STK-MED ONCE IV ; Start 12/21/20 at 12:32; Stop 12/21/20 at 12:32; Status DC Fentanyl Citrate (Fentanyl 2ml Vial) 100 mcg STK-MED ONCE .ROUTE ; Start 12/21/20 at 12:49; Stop 12/21/20 at 12:50; Status DC Rocuronium [place] (Zemuron) 50 mg STK-MED ONCE .ROUTE ; Start 12/21/20 at 12:51; Stop 12/21/20 at 12:51; Status DC Naloxone HCl (Narcan) 0.4 mg PRN Q2MIN PRN IV SEE INSTRUCTIONS; Start 12/21/20 at 14:00 Sodium Chloride 1,000 ml @ 25 mls/hr Q24H IV Last administered on 12/24/20at 23:15; Start 12/21/20 at 14:00; Stop 12/25/20 at 20:08; Status DC Hydromorphone HCl 30 ml @ 0 mls/hr CONT PRN PRN IV PER PROTOCOL Last administered on 12/21/20at 14:52; Start 12/21/20 at 14:00; Stop 12/25/20 at 08:52; Status DC Prochlorperazine Edisylate (Compazine) 10 mg STK-MED ONCE .ROUTE ; Start 12/21/20 at 14:17; Stop 12/21/20 at 14:17; Status DC Enoxaparin Sodium (Lovenox 40mg Syringe) 40 mg Q24H SQ Last administered on 12/29/20at 13:37; Start 12/23/20 at 10:00 Hydromorphone HCl (Dilaudid) 0.4 mg PRN Q4HRS PRN IVP MODERATE PAIN Last administered on 12/26/20at 06:39; Start 12/25/20 at 09:00 Oxycodone/ Acetaminophen (Percocet 5/325) 1 tab PRN Q4HRS PRN PO PAIN Last administered on 12/26/20at 01:28; Start 12/25/20 at 09:00; Stop 12/26/20 at 09:04; Status DC Atorvastatin Calcium (Lipitor) 40 mg QHS PO Last administered on 12/28/20at 20:17; Start 12/25/20 at 21:00 Tramadol HCl (Ultram) 50 mg PRN Q6HRS PRN PO MODERATE TO SEVERE PAIN Last administered on 12/26/20at 09:54; Start 12/26/20 at 09:15 Acetaminophen (Tylenol) 650 mg PRN Q4HRS PRN PO TEMP > 100.3'F Last administered on 12/28/20at 18:15; Start 12/26/20 at 20:45 Calcium Carbonate/ Glycine (Tums) 1,000 mg PRN Q3HRS PRN PO heartburn Last administered on 12/28/20at 20:17; Start 12/28/20 at 20:00 Active Scripts Active Reported Lipitor (Atorvastatin Calcium) 40 Mg Tablet 1 Tab PO QHS Vitals/I & O Vital Sign - Last 24 Hours 12/28/20 12/28/20 12/29/20 12/29/20 20:00 23:06 07:00 11:00 Temp 97.3 98.4 97.4 97.3 98.4 97.4 Pulse 80 79 79 Resp 20 18 18 B/P (MAP) 108/65 (79) 109/70 (83) 109/78 (88) Pulse Ox 99 96 97 O2 Delivery Room Air Room Air Room Air Room Air 12/29/20 15:00 Temp 97.7 97.7 Pulse 72 Resp 18 B/P (MAP) 117/68 (84) Pulse Ox 99 O2 Delivery Room Air Intake and Output 12/28/20 12/28/20 12/29/20 15:00 23:00 07:00 Intake Total 50 ml 120 ml Output Total 700 ml Balance 50 ml -580 ml Justicifation of Admission Dx: Justifications for Admission: Justification of Admission Dx: Comment: (Perforated appendicitis) SANDRA KEN MD Dec 29, 2020 19:12
[2020-12-29] MEDS: ATORVASTATIN CALCIUM 40 MG TABLET. PO SCH (21:30)
--- NOTE | 2020-12-29 22:00 | NUR ---
Patient wanting his Procalamine to be disconnected, "I'm eating well, I feel good...this is for nutrition, right? So I don't need it since I'm eating, just take this off of me" This music writer did disconnect the fluids, Pt is informed he would still be getting his antibiotics every six hours, pt is in agreement. Monitoring.
[2020-12-29 23:00] VITALS: BP 112/64
[2020-12-30] MEDS: PIPERACILLIN/TAZOBACTAM 3.375 GM in IV NORMAL SALINE 50ML 50 ML IV SCH ×4 (00:10→18:00)
[2020-12-30 07:00] VITALS: BP 116/77
[2020-12-30] MEDS: ENOXAPARIN 40 MG/0.4 ML SYRINGE. SQ SCH (10:00)
--- NOTE | 2020-12-30 10:57 | PDOC ---
RITA CENTENO [employer]TER 12/30/20 1057: SURGICAL PROGRESS NOTE DATE: 12/30/20 TIME: 10:54 Subjective feeling better eating, stooling long discussion with oncology yesterday Vital Signs Vital Signs Date Time Temp Pulse Resp B/P (MAP) Pulse Ox O2 Delivery O2 Flow Rate FiO2 12/30/20 03:00 Room Air 12/29/20 23:00 98.1 85 20 99 98.1 I&O Intake and Output0 12/30/20 07:00 Intake Total 1400 ml Output Total 1250 ml Balance 150 ml Intake Oral 250 ml IV Total 1150 ml Output Urine Total 1250 ml # Bowel Movements 1 General: Alert, Oriented X3, Cooperative Abdomen: Soft, Other (ND, incision c/d/i, delvin serous ) Labs Laboratory Tests Test 12/29/20 09:06 White Blood Count 12.9 x10^3/uL (4.0-11.0) Red Blood Count 4.61 x10^6/uL (4.30-5.70) Hemoglobin 12.9 g/dL (13.0-17.5) Hematocrit 38.7 % (39.0-53.0) Mean Corpuscular Volume 84 fL (79-100) Mean Corpuscular Hemoglobin 28 pg (25-35) Mean Corpuscular Hemoglobin Concent 33 g/dL (31-37) Red Cell Distribution Width 13.8 % (11.5-14.5) Platelet Count 519 x10^3/uL (140-400) Neutrophils (%) (Auto) 79 % (31-73) Lymphocytes (%) (Auto) 11 % (24-48) Monocytes (%) (Auto) 8 % (0-9) Eosinophils (%) (Auto) 2 % (0-3) Basophils (%) (Auto) 0 % (0-3) Neutrophils # (Auto) 10.2 x10^3/uL (1.8-7.7) Lymphocytes # (Auto) 1.4 x10^3/uL (1.0-4.8) Monocytes # (Auto) 1.0 x10^3/uL (0.0-1.1) Eosinophils # (Auto) 0.2 x10^3/uL (0.0-0.7) Basophils # (Auto) 0.0 x10^3/uL (0.0-0.2) Sodium Level 135 mmol/L (136-145) Potassium Level 4.1 mmol/L (3.5-5.1) Chloride Level 101 mmol/L (98-107) Carbon Dioxide Level 22 mmol/L (21-32) Anion Gap 12 (6-14) Blood Urea Nitrogen 18 mg/dL (8-26) Creatinine 1.1 mg/dL (0.7-1.3) Estimated GFR (Cockcroft-Gault) 82.9 BUN/Creatinine Ratio 16 (6-20) Glucose Level 92 mg/dL (70-99) Calcium Level 9.2 mg/dL (8.5-10.1) Total Bilirubin 0.7 mg/dL (0.2-1.0) Aspartate Amino Transf (AST/SGOT) 21 U/L (15-37) Alanine Aminotransferase (ALT/SGPT) 28 U/L (16-63) Alkaline Phosphatase 89 U/L (46-116) Total Protein 6.5 g/dL (6.4-8.2) Albumin 2.3 g/dL (3.4-5.0) Albumin/Globulin Ratio 0.5 (1.0-1.7) Problem List Problems Medical Problems: (1) Hypomagnesemia Status: Acute (2) Perforated appendicitis Status: Acute Assessment/Plan remove dale jain jp prior to discharge oncology FU Justicifation of Admission Dx: Justifications for Admission: Justification of Admission Dx: Comment: (Perforated appendicitis) YOMAIRA CASTILLO MD 12/30/20 1518: SURGICAL PROGRESS NOTE Assessment/Plan Agree with above RITA CENTENO APRN Dec 30, 2020 10:57 YOMAIRA CASTILLO MD Dec 30, 2020 15:18
[2020-12-30 11:00] VITALS: BP 104/77
[2020-12-30] MEDS: AMINO AC 3%/ELECTROLYTE/GLYCER 1,000 ML IV SCH ×2 (12:30)
--- NOTE | 2020-12-30 14:51 | NUR ---
SW following. Discussed with RN, see paper chart for documentation. Awaiting acceptance decision for home health through [facility]. SW will continue to follow.
[2020-12-30 15:00] VITALS: BP 102/69
--- NOTE | 2020-12-30 15:15 | PDOC ---
PROGRESS NOTES Date of Service: DATE: 12/30/20 TIME: 15:13 Chief Complaint Chief Complaint acute Perforated appendicitis - abscess presence unclear, will f/u renal function to obtain CT with contrast vs US. NPO, IV pain control. Zosyn q6hrs. 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 Intractable abdominal pain - due to above, continue IV Dilaudid URGENT CARE PHYSICIAN Sepsis - due to perforated diverticulitis - given empiric IVF and zosyn ALYSIA - likely vasomotor nephropathy given poor PO intake, continue IV fluid resuscitation, creatinine seems to be at baseline since no changes have been noted although it could be compromised due to his underlying infectious process Pelvic fluid collection - between seminal vesicles and rectum, possibly abscess, will repeat labs and try CT with contrast if renal function improves Elevated PSA - noted outpatient Bilateral hip osteoarthrosis - noted on CT Hypomagnesemia - Replace IV Elevated bilirubin - will monitor Moderate protein calorie malnutrition - will start on IV nutrition History of Present Illness History of Present Illness 12/30, I discussed [place] and Lymphoma and such at length. he is in better spirits, would like to lyla GARCÍA to discuss also, his primary care is there. 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 He and his brother, bedside, note that his symptoms have been going on for a week intermittently and 5 days ago he felt his pain suddenly improve and then intermittently with cramping pain with eating for the past 3 days prior to pr esentation, but on 12/19/2020 it got significantly worse overnight and became constant, sharp in his RLQ with associated chills without fever. He is thirsty but has not been able to eat or drink without nausea, now has no appetite. He notes his urine output has dropped the last few days, but thought it was his prostate as a few months ago he had his PSA elevated. Patient denies any cough or chest pain or any trouble breathing. In ED noted to be tachycardic 100 bpm and febrile to 100.[address] abdomen/pelvis elongated masslike structure in the right lower quadrant with surrounding fat stranding suspicious for ruptured appendicitis with phlegmon or complex abscess. WBC 12.1, Hb 12.9, platelets 220, Na 139, K 3.6, BUN 12, Cr 1.8, glucose 87, Mg 1.5, lactic acid 2.8, Bilirubin 1.6, Albumin 2.8. Admitted for further care. 12/21: Patient with fever overnight and chills. Still having abdominal discomfort somewhat improved compared to admission. Discussed with certified ophthalmic surgical assistant. He may need surgery later in the day 12/22/2020 No acute events overnight. White count trending upwards. No fevers reported in the past 24 hours. Pain is controlled. Incision sites appears to be intact. Dressings are clear dry and intact. 12/23 d/w rn Pain is controlled. Incision sites appears to be intact. Dressings are clear dry and intact. 12/24/2020 No acute events overnight. Pain is moderately controlled. Redirected patient to use URGENT CARE PHYSICIAN. Patient does endorse flatus. Patient's chart, labs, images were reviewed and discussed with RN 12/25/2020 No acute events overnight. Patient seen and examined bedside. And up to chair. Pain is better controlled will DC URGENT CARE PHYSICIAN. Tolerating clears and having flatus. No bowel movement this time. Patient's chart, labs, images were reviewed and di scussed with RN 12/26/2020 No acute events overnight. Patient seen and examined bedside. We will switch to tramadol for better pain control. Continue with URGENT CARE PHYSICIAN. Patient's chart, labs, images were reviewed and discussed with RN Vitals Vitals Vital Signs Date Time Temp Pulse Resp B/P (MAP) Pulse Ox O2 Delivery O2 Flow Rate FiO2 12/30/20 03:00 Room Air 12/29/20 23:00 98.1 85 20 99 98.1 Physical Exam General: Alert, Oriented X3, Cooperative Heart: Regular rate Lungs: Clear Abdomen: Soft, Other (ND, incision c/d/i, delvin serous ) Extremities: No clubbing, No cyanosis Skin: No rashes Assessment and Plan Assessmemt and Plan Problems Medical Problems: (1) Hypomagnesemia Status: Acute (2) Perforated appendicitis Status: Acute Comment Review of Relevant I have reviewed the following items demetra (where applicable) has been applied. Labs Laboratory Tests Test 12/29/20 09:06 White Blood Count 12.9 x10^3/uL (4.0-11.0) Red Blood Count 4.61 x10^6/uL (4.30-5.70) Hemoglobin 12.9 g/dL (13.0-17.5) Hematocrit 38.7 % (39.0-53.0) Mean Corpuscular Volume 84 fL (79-100) Mean Corpuscular Hemoglobin 28 pg (25-35) Mean Corpuscular Hemoglobin Concent 33 g/dL (31-37) Red Cell Distribution Width 13.8 % (11.5-14.5) Platelet Count 519 x10^3/uL (140-400) Neutrophils (%) (Auto) 79 % (31-73) Lymphocytes (%) (Auto) 11 % (24-48) Monocytes (%) (Auto) 8 % (0-9) Eosinophils (%) (Auto) 2 % (0-3) Basophils (%) (Auto) 0 % (0-3) Neutrophils # (Auto) 10.2 x10^3/uL (1.8-7.7) Lymphocytes # (Auto) 1.4 x10^3/uL (1.0-4.8) Monocytes # (Auto) 1.0 x10^3/uL (0.0-1.1) Eosinophils # (Auto) 0.2 x10^3/uL (0.0-0.7) Basophils # (Auto) 0.0 x10^3/uL (0.0-0.2) Sodium Level 135 mmol/L (136-145) Potassium Level 4.1 mmol/L (3.5-5.1) Chloride Level 101 mmol/L (98-107) Carbon Dioxide Level 22 mmol/L (21-32) Anion Gap 12 (6-14) Blood Urea Nitrogen 18 mg/dL (8-26) Creatinine 1.1 mg/dL (0.7-1.3) Estimated GFR (Cockcroft-Gault) 82.9 BUN/Creatinine Ratio 16 (6-20) Glucose Level 92 mg/dL (70-99) Calcium Level 9.2 mg/dL (8.5-10.1) Total Bilirubin 0.7 mg/dL (0.2-1.0) Aspartate Amino Transf (AST/SGOT) 21 U/L (15-37) Alanine Aminotransferase (ALT/SGPT) 28 U/L (16-63) Alkaline Phosphatase 89 U/L (46-116) Total Protein 6.5 g/dL (6.4-8.2) Albumin 2.3 g/dL (3.4-5.0) Albumin/Globulin Ratio 0.5 (1.0-1.7) Microbiology 12/20/20 Blood Culture - Final, Complete NO GROWTH AFTER 5 DAYS Medications Current Medications Sodium Chloride 1,000 ml @ 1,000 mls/hr 1X ONCE IV Last administered on 12/20/20at 11:08; Start 12/20/20 at 11:15; Stop 12/20/20 at 12:14; Status DC Fentanyl Citrate (Fentanyl 2ml Vial) 50 mcg 1X ONCE IVP Last administered on 12/20/20at 12:31; Start 12/20/20 at 12:00; Stop 12/20/20 at 12:01; Status DC Piperacillin Sod/ Tazobactam Sod 3.375 gm/Sodium Chloride 50 ml @ 100 mls/hr 1X ONCE IV Last administered on 12/20/20at 12:15; Start 12/20/20 at 12:00; Stop 12/20/20 at 12:29; Status DC Magnesium Sulfate 50 ml @ 25 mls/hr 1X ONCE IV Last administered on 12/20/20at 12:16; Start 12/20/20 at 12:00; Stop 12/20/20 at 13:59; Status DC Sodium Chloride 1,000 ml @ 1,000 mls/hr 1X ONCE IV Last administered on 12/20/20at 13:16; Start 12/20/20 at 13:15; Stop 12/20/20 at 14:14; Status DC Fentanyl Citrate (Fentanyl 2ml Vial) 75 mcg 1X ONCE IVP Last administered on 12/20/20at 13:26; Start 12/20/20 at 13:45; Stop 12/20/20 at 13:46; Status DC Ondansetron HCl (Zofran) 4 mg PRN Q8HRS PRN IV NAUSEA/VOMITING; Start 12/20/20 at 13:15; Stop 12/20/20 at 13:46; Status DC Fentanyl Citrate (Fentanyl 2ml Vial) 50 mcg PRN Q1HR PRN IV PAIN; Start 12/20/20 at 13:15; Stop 12/21/20 at 13:14; Status DC Sodium Chloride 1,000 ml @ 100 mls/hr Q10H IV Last administered on 12/21/20at 11:05; Start 12/20/20 at 13:15; Stop 12/21/20 at 13:14; Status DC Sodium Chloride 1,000 ml @ 1,000 mls/hr 1X ONCE IV Last administered on 12/20/20at 13:30; Start 12/20/20 at 13:30; Stop 12/20/20 at 14:29; Status DC Piperacillin Sod/ Tazobactam Sod (Zosyn Per Pharmacy) 1 each PRN DAILY PRN MC SEE COMMENTS; Start 12/20/20 at 13:45 Ondansetron HCl (Zofran) 4 mg PRN Q4HRS PRN IV NAUSEA/VOMITING Last administered on 12/23/20at 05:17; Start 12/20/20 at 13:45 Acetaminophen (Tylenol Supp) 650 mg PRN Q4HRS PRN [place] TEMP OVER 100.4F OR MILD PAIN Last administered on 12/21/20at 02:20; Start 12/20/20 at 13:45 Olanzapine (ZyPREXA ZYDIS) 5 mg PRN BID PRN PO ANXIETY / AGITATION; Start 12/20/20 at 13:45 Bisacodyl (Dulcolax Supp) 10 mg PRN DAILY PRN [place] CONSTIPATION; Start 12/20/20 at 13:45 Heparin Sodium (Porcine) (Heparin Sodium) 5,000 unit BID ONCE SQ Last administered on 12/20/20at 20:08; Start 12/20/20 at 21:00; Stop 12/20/20 at 21:01; Status DC Morphine Sulfate (Morphine Sulfate) 4 mg PRN Q3HRS PRN IV SEVERE PAIN 7-10 Last administered on 12/21/20at 14:34; Start 12/20/20 at 13:45 Piperacillin Sod/ Tazobactam Sod 3.375 gm/Sodium Chloride 50 ml @ 100 mls/hr Q6HRS IV Last administered on 12/30/20at 00:10; Start 12/20/20 at 18:00 Amino Acids/ Glycerin/ Electrolytes 1,000 ml @ 80 mls/hr [id number] IV Last administered on 12/29/20at 17:57; Start 12/20/20 at 15:00 Potassium Chloride (Klor-Con) 40 meq 1X ONCE PO ; Start 12/21/20 at 10:00; Stop 12/21/20 at 10:01; Status DC Magnesium Sulfate/ Dextrose 100 ml @ 100 mls/hr 1X ONCE IV ; Start 12/21/20 at 10:00; Stop 12/21/20 at 10:59; Status DC Fentanyl Citrate (Fentanyl 2ml Vial) 25 mcg PRN Q5MIN PRN IVP MILD PAIN 1-3; Start 12/21/20 at 10:15; Stop 12/22/20 at 10:14; Status DC Fentanyl Citrate (Fentanyl 2ml Vial) 50 mcg PRN Q5MIN PRN IVP MODERATE PAIN 4- 6; Start 12/21/20 at 10:15; Stop 12/22/20 at 10:14; Status DC Morphine Sulfate (Morphine Sulfate) 1 mg PRN Q10MIN PRN IVP SEVERE PAIN 7-10; Start 12/21/20 at 10:15; Stop 12/22/20 at 10:14; Status DC Ringer's Solution 1,000 ml @ 30 mls/hr Q24H IV Last administered on 12/21/20at 14:23; Start 12/21/20 at 10:15; Stop 12/21/20 at 22:14; Status DC Hydromorphone HCl (Dilaudid) 0.5 mg PRN Q10MIN PRN IVP SEVERE PAIN 7-10, 2nd CHOICE; Start 12/21/20 at 10:15; Stop 12/22/20 at 10:14; Status DC Prochlorperazine Edisylate (Compazine) 5 mg PACU PRN PRN IVP NAUSEA, MRX1 Last administered on 12/21/20at 14:34; Start 12/21/20 at 10:15; Stop 12/22/20 at 10:14; Status DC Potassium Chloride/Water 100 ml @ 100 mls/hr Q1H IV Last administered on 12/21/20at 18:05; Start 12/21/20 at 12:00; Stop 12/21/20 at 15:59; Status DC Sevoflurane (Ultane) 90 ml STK-MED ONCE IH ; Start 12/21/20 at 10:52; Stop 1 at 10:52; Status DC Succinylcholine Chloride (Anectine) 200 mg STK-MED ONCE .ROUTE ; Start 12/21/20 at 10:52; Stop 12/21/20 at 10:52; Status DC Neostigmine [place] (Neostigmine Methylsulfate) 5 mg STK-MED ONCE .ROUTE ; Start 12/21/20 at 10:52; Stop 12/21/20 at 10:52; Status DC Rocuronium [place] (Zemuron) 50 mg STK-MED ONCE .ROUTE ; Start 12/21/20 at 10:52; Stop 12/21/20 at 10:52; Status DC Fentanyl Citrate (Fentanyl 2ml Vial) 100 mcg STK-MED ONCE .ROUTE ; Start 12/21/20 at 10:52; Stop 12/21/20 at 10:53; Status DC Midazolam HCl (Versed) 2 mg STK-MED ONCE .ROUTE ; Start 12/21/20 at 10:53; Stop 12/21/20 at 10:53; Status DC Glycopyrrolate (Robinul) 1 mg STK-MED ONCE .ROUTE ; Start 12/21/20 at 10:53; Stop 12/21/20 at 10:53; Status DC Propofol (Diprivan) 200 mg STK-MED ONCE IV ; Start 12/21/20 at 10:53; Stop 12/21/20 at 10:53; Status DC Dexamethasone Sodium Phosphate (Decadron) 4 mg STK-MED ONCE .ROUTE ; Start 12/21/20 at 10:53; Stop 12/21/20 at 10:53; Status DC Ondansetron HCl (Zofran) 4 mg STK-MED ONCE .ROUTE ; Start 12/21/20 at 10:53; Stop 12/21/20 at 10:53; Status DC Lidocaine HCl (Lidocaine Pf 2% Vial) 5 ml STK-MED ONCE .ROUTE ; Start 12/21/20 at 10:53; Stop 12/21/20 at 10:53; Status DC Sodium Chloride 1,000 ml @ 1,000 mls/hr 1X ONCE IV Last administered on 12/21/20at 11:09; Start 12/21/20 at 11:00; Stop 12/21/20 at 11:59; Status DC Bupivacaine HCl/ Epinephrine Bitart (Sensorcain-Epi 0.5% Kit) 30 ml STK-MED ONCE .ROUTE ; Start 12/21/20 at 11:10; Stop 12/21/20 at 11:11; Status DC Sterile Water 10 ml @ As Directed STK-MED ONCE IJ ; Start 12/21/20 at 11:43; Stop 12/21/20 at 11:43; Status DC Ephedrine Sulfate (ePHEDrine PF IN SALINE SYRINGE) 50 mg STK-MED ONCE IV ; Start 12/21/20 at 12:25; Stop 12/21/20 at 12:25; Status DC Phenylephrine HCl (PHENYLEPHRINE in 0.9% NACL PF) 1 mg STK-MED ONCE IV ; Start 12/21/20 at 12:32; Stop 12/21/20 at 12:32; Status DC Fentanyl Citrate (Fentanyl 2ml Vial) 100 mcg STK-MED ONCE .ROUTE ; Start 12/21/20 at 12:49; Stop 12/21/20 at 12:50; Status DC Rocuronium [place] (Zemuron) 50 mg STK-MED ONCE .ROUTE ; Start 12/21/20 at 12:51; Stop 12/21/20 at 12:51; Status DC Naloxone HCl (Narcan) 0.4 mg PRN Q2MIN PRN IV SEE INSTRUCTIONS; Start 12/21/20 at 14:00 Sodium Chloride 1,000 ml @ 25 mls/hr Q24H IV Last administered on 12/24/20at 23:15; Start 12/21/20 at 14:00; Stop 12/25/20 at 20:08; Status DC Hydromorphone HCl 30 ml @ 0 mls/hr CONT PRN PRN IV PER PROTOCOL Last administered on 12/21/20at 14:52; Start 12/21/20 at 14:00; Stop 12/25/20 at 08:52; Status DC Prochlorperazine Edisylate (Compazine) 10 mg STK-MED ONCE .ROUTE ; Start 12/21/20 at 14:17; Stop 12/21/20 at 14:17; Status DC Enoxaparin Sodium (Lovenox 40mg Syringe) 40 mg Q24H SQ Last administered on 12/29/20 13:37; Start 12/23/20 at 10:00 Hydromorphone HCl (Dilaudid) 0.4 mg PRN Q4HRS PRN IVP MODERATE PAIN Last administered on 12/26/20 06:39; Start 12/25/20 at 09:00 Oxycodone/ Acetaminophen (Percocet 5/325) 1 tab PRN Q4HRS PRN PO PAIN Last administered on 12/26/20 01:28; Start 12/25/20 at 09:00; Stop 12/26/20 at 09:04; Status DC Atorvastatin Calcium (Lipitor) 40 mg QHS PO Last administered on 12/29/20 21:30; Start 12/25/20 at 21:00 Tramadol HCl (Ultram) 50 mg PRN Q6HRS PRN PO MODERATE TO SEVERE PAIN Last administered on 12/26/20 09:54; Start 12/26/20 at 09:15 Acetaminophen (Tylenol) 650 mg PRN Q4HRS PRN PO TEMP > 100.3'F Last administered on 12/28/20at 18:15; Start 12/26/20 at 20:45 Calcium Carbonate/ Glycine (Tums) 1,000 mg PRN Q3HRS PRN PO heartburn Last administered on 12/28/20 20:17; Start 12/28/20 at 20:00 Active Scripts Active Reported Lipitor (Atorvastatin Calcium) 40 Mg Tablet 1 Tab PO QHS Vitals/I & O Vital Sign - Last 24 Hours 12/29/20 12/29/20 12/30/20 19:00 23:00 03:00 Temp 98.3 98.1 98.3 98.1 Pulse 86 85 Resp 20 20 B/P (MAP) 118/72 (87) 112/64 (80) Pulse Ox 95 99 O2 Delivery Room Air Room Air Room Air Intake and Output 12/29/20 12/29/20 12/30/20 15:00 23:00 07:00 Intake Total 200 ml 1150 ml 50 ml Output Total 400 ml 300 ml 550 ml Balance -200 ml 850 ml -500 ml Justicifation of Admission Dx: Justifications for Admission: Justification of Admission Dx: Comment: (Perforated appendicitis) SANDRA KEN MD Dec 30, 2020 15:15
[2020-12-30 19:00] VITALS: BP 104/72
[2020-12-30] MEDS: ATORVASTATIN CALCIUM 40 MG TABLET. PO SCH (21:00)
[2020-12-30 23:00] VITALS: BP 100/70
[2020-12-31] MEDS: PIPERACILLIN/TAZOBACTAM 3.375 GM in IV NORMAL SALINE 50ML 50 ML IV SCH
[2020-12-31] MEDS: AMINO AC 3%/ELECTROLYTE/GLYCER 1,000 ML IV SCH (01:00)
[2020-12-31 07:00] VITALS: BP 104/72
--- NOTE | 2020-12-31 09:14 | PDOC ---
PROGRESS NOTES Date of Service DATE: 12/31/20 TIME: 09:12 Subjective Subjective doing well Objective Objective Vital Signs Date Time Temp Pulse Resp B/P (MAP) Pulse Ox O2 Delivery O2 Flow Rate FiO2 12/31/20 07:00 97.9 72 20 104/72 (83) 96 Room Air 97.9 12/30/20 23:00 1.0 Intake and Output 12/31/20 07:00 # Voids 2 Physical Exam Abdomen: Soft Assessment Assessment Problems Medical Problems: (1) Hypomagnesemia Status: Acute (2) Perforated appendicitis Status: Acute Plan Plan of Care Ok to discharge; DC drain; FU in 2 weeks Comment Review of Relevant I have reviewed the following items demetra (where applicable) has been applied. Labs Microbiology 12/20/20 Blood Culture - Final, Complete NO GROWTH AFTER 5 DAYS Medications Current Medications Sodium Chloride 1,000 ml @ 1,000 mls/hr 1X ONCE IV Last administered on 12/20/20at 11:08; Start 12/20/20 at 11:15; Stop 12/20/20 at 12:14; Status DC Fentanyl Citrate (Fentanyl 2ml Vial) 50 mcg 1X ONCE IVP Last administered on 12/20/20at 12:31; Start 12/20/20 at 12:00; Stop 12/20/20 at 12:01; Status DC Piperacillin Sod/ Tazobactam Sod 3.375 gm/Sodium Chloride 50 ml @ 100 mls/hr 1X ONCE IV Last administered on 12/20/20at 12:15; Start 12/20/20 at 12:00; Stop 12/20/20 at 12:29; Status DC Magnesium Sulfate 50 ml @ 25 mls/hr 1X ONCE IV Last administered on 12/20/20at 12:16; Start 12/20/20 at 12:00; Stop 12/20/20 at 13:59; Status DC Sodium Chloride 1,000 ml @ 1,000 mls/hr 1X ONCE IV Last administered on 12/20/20at 13:16; Start 12/20/20 at 13:15; Stop 12/20/20 at 14:14; Status DC Fentanyl Citrate (Fentanyl 2ml Vial) 75 mcg 1X ONCE IVP Last administered on 12/20/20at 13:26; Start 12/20/20 at 13:45; Stop 12/20/20 at 13:46; Status DC Ondansetron HCl (Zofran) 4 mg PRN Q8HRS PRN IV NAUSEA/VOMITING; Start 12/20/20 at 13:15; Stop 12/20/20 at 13:46; Status DC Fentanyl Citrate (Fentanyl 2ml Vial) 50 mcg PRN Q1HR PRN IV PAIN; Start 12/20/20 at 13:15; Stop 12/21/20 at 13:14; Status DC Sodium Chloride 1,000 ml @ 100 mls/hr Q10H IV Last administered on 12/21/20at 11:05; Start 12/20/20 at 13:15; Stop 12/21/20 at 13:14; Status DC Sodium Chloride 1,000 ml @ 1,000 mls/hr 1X ONCE IV Last administered on 12/20/20at 13:30; Start 12/20/20 at 13:30; Stop 12/20/20 at 14:29; Status DC Piperacillin Sod/ Tazobactam Sod (Zosyn Per Pharmacy) 1 each PRN DAILY PRN MC SEE COMMENTS; Start 12/20/20 at 13:45 Ondansetron HCl (Zofran) 4 mg PRN Q4HRS PRN IV NAUSEA/VOMITING Last administered on 12/23/20at 05:17; Start 12/20/20 at 13:45 Acetaminophen (Tylenol Supp) 650 mg PRN Q4HRS PRN [place] TEMP OVER 100.4F OR MILD PAIN Last administered on 12/21/20at 02:20; Start 12/20/20 at 13:45 Olanzapine (ZyPREXA ZYDIS) 5 mg PRN BID PRN PO ANXIETY / AGITATION; Start 12/20/20 at 13:45 Bisacodyl (Dulcolax Supp) 10 mg PRN DAILY PRN [place] CONSTIPATION; Start 12/20/20 at 13:45 Heparin Sodium (Porcine) (Heparin Sodium) 5,000 unit BID ONCE SQ Last administered on 12/20/20at 20:08; Start 12/20/20 at 21:00; Stop 12/20/20 at 21:01; Status DC Morphine Sulfate (Morphine Sulfate) 4 mg PRN Q3HRS PRN IV SEVERE PAIN 7-10 Last administered on 12/21/20at 14:34; Start 12/20/20 at 13:45 Piperacillin Sod/ Tazobactam Sod 3.375 gm/Sodium Chloride 50 ml @ 100 mls/hr Q6HRS IV Last administered on 12/30/20at 00:10; Start 12/20/20 at 18:00 Amino Acids/ Glycerin/ Electrolytes 1,000 ml @ 80 mls/hr [id number] IV Last administered on 12/29/20at 17:57; Start 12/20/20 at 15:00 Potassium Chloride (Klor-Con) 40 meq 1X ONCE PO ; Start 12/21/20 at 10:00; Stop 12/21/20 at 10:01; Status DC Magnesium Sulfate/ Dextrose 100 ml @ 100 mls/hr 1X ONCE IV ; Start 12/21/20 at 10:00; Stop 12/21/20 at 10:59; Status DC Fentanyl Citrate (Fentanyl 2ml Vial) 25 mcg PRN Q5MIN PRN IVP MILD PAIN 1-3; Start 12/21/20 at 10:15; Stop 12/22/20 at 10:14; Status DC Fentanyl Citrate (Fentanyl 2ml Vial) 50 mcg PRN Q5MIN PRN IVP MODERATE PAIN 4- 6; Start 12/21/20 at 10:15; Stop 12/22/20 at 10:14; Status DC Morphine Sulfate (Morphine Sulfate) 1 mg PRN Q10MIN PRN IVP SEVERE PAIN 7-10; Start 12/21/20 at 10:15; Stop 12/22/20 at 10:14; Status DC Ringer's Solution 1,000 ml @ 30 mls/hr Q24H IV Last administered on 12/21/20at 14:23; Start 12/21/20 at 10:15; Stop 12/21/20 at 22:14; Status DC Hydromorphone HCl (Dilaudid) 0.5 mg PRN Q10MIN PRN IVP SEVERE PAIN 7-10, 2nd CHOICE; Start 12/21/20 at 10:15; Stop 12/22/20 at 10:14; Status DC Prochlorperazine Edisylate (Compazine) 5 mg PACU PRN PRN IVP NAUSEA, MRX1 Last administered on 12/21/20at 14:34; Start 12/21/20 at 10:15; Stop 12/22/20 at 10:14; Status DC Potassium Chloride/Water 100 ml @ 100 mls/hr Q1H IV Last administered on 12/21/20at 18:05; Start 12/21/20 at 12:00; Stop 12/21/20 at 15:59; Status DC Sevoflurane (Ultane) 90 ml STK-MED ONCE IH ; Start 12/21/20 at 10:52; Stop 12/21/20 at 10:52; Status DC Succinylcholine Chloride (Anectine) 200 mg STK-MED ONCE .ROUTE ; Start 12/21/20 at 10:52; Stop 12/21/20 at 10:52; Status DC Neostigmine [place] (Neostigmine Methylsulfate) 5 mg STK-MED ONCE .ROUTE ; Start 12/21/20 at 10:52; Stop 12/21/20 at 10:52; Status DC Rocuronium [place] (Zemuron) 50 mg STK-MED ONCE .ROUTE ; Start 12/21/20 at 10:52; Stop 12/21/20 at 10:52; Status DC Fentanyl Citrate (Fentanyl 2ml Vial) 100 mcg STK-MED ONCE .ROUTE ; Start 12/21/20 at 10:52; Stop 12/21/20 at 10:53; Status DC Midazolam HCl (Versed) 2 mg STK-MED ONCE .ROUTE ; Start 12/21/20 at 10:53; Stop 12/21/20 at 10:53; Status DC Glycopyrrolate (Robinul) 1 mg STK-MED ONCE .ROUTE ; Start 12/21/20 at 10:53; Stop 12/21/20 at 10:53; Status DC Propofol (Diprivan) 200 mg STK-MED ONCE IV ; Start 12/21/20 at 10:53; Stop 12/21 at 10:53; Status DC Dexamethasone Sodium Phosphate (Decadron) 4 mg STK-MED ONCE .ROUTE ; Start 12/21/20 at 10:53; Stop 12/21/20 at 10:53; Status DC Ondansetron HCl (Zofran) 4 mg STK-MED ONCE .ROUTE ; Start 12/21/20 at 10:53; Stop 12/21/20 at 10:53; Status DC Lidocaine HCl (Lidocaine Pf 2% Vial) 5 ml STK-MED ONCE .ROUTE ; Start 12/21/20 at 10:53; Stop 12/21/20 at 10:53; Status DC Sodium Chloride 1,000 ml @ 1,000 mls/hr 1X ONCE IV Last administered on 12/21/20at 11:09; Start 12/21/20 at 11:00; Stop 12/21/20 at 11:59; Status DC Bupivacaine HCl/ Epinephrine Bitart (Sensorcain-Epi 0.5% Kit) 30 ml STK-MED ONCE .ROUTE ; Start 12/21/20 at 11:10; Stop 12/21/20 at 11:11; Status DC Sterile Water 10 ml @ As Directed STK-MED ONCE IJ ; Start 12/21/20 at 11:43; Stop 12/21/20 at 11:43; Status DC Ephedrine Sulfate (ePHEDrine PF IN SALINE SYRINGE) 50 mg STK-MED ONCE IV ; Start 12/21/20 at 12:25; Stop 12/21/20 at 12:25; Status DC Phenylephrine HCl (PHENYLEPHRINE in 0.9% NACL PF) 1 mg STK-MED ONCE IV ; Start 12/21/20 at 12:32; Stop 12/21/20 at 12:32; Status DC Fentanyl Citrate (Fentanyl 2ml Vial) 100 mcg STK-MED ONCE .ROUTE ; Start 12/21/20 at 12:49; Stop 12/21/20 at 12:50; Status DC Rocuronium [place] (Zemuron) 50 mg STK-MED ONCE .ROUTE ; Start 12/21/20 at 12:51; Stop 12/21/20 at 12:51; Status DC Naloxone HCl (Narcan) 0.4 mg PRN Q2MIN PRN IV SEE INSTRUCTIONS; Start 12/21/20 at 14:00 Sodium Chloride 1,000 ml @ 25 mls/hr Q24H IV Last administered on 12/24/20at 23:15; Start 12/21/20 at 14:00; Stop 12/25/20 at 20:08; Status DC Hydromorphone HCl 30 ml @ 0 mls/hr CONT PRN PRN IV PER PROTOCOL Last administered on 12/21/20at 14:52; Start 12/21/20 at 14:00; Stop 12/25/20 at 08:52; Status DC Prochlorperazine Edisylate (Compazine) 10 mg STK-MED ONCE .ROUTE ; Start 12/21/20 at 14:17; Stop 12/21/20 at 14:17; Status DC Enoxaparin Sodium (Lovenox 40mg Syringe) 40 mg Q24H SQ Last administered on 12/30/20at 10:00; Start 12/23/20 at 10:00 Hydromorphone HCl (Dilaudid) 0.4 mg PRN Q4HRS PRN IVP MODERATE PAIN Last administered on 12/26/20at 06:39; Start 12/25/20 at 09:00 Oxycodone/ Acetaminophen (Percocet 5/325) 1 tab PRN Q4HRS PRN PO PAIN Last administered on 12/26/20at 01:28; Start 12/25/20 at 09:00; Stop 12/26/20 at 09:04; Status DC Atorvastatin Calcium (Lipitor) 40 mg QHS PO Last administered on 12/29/20at 21:30; Start 12/25/20 at 21:00 Tramadol HCl (Ultram) 50 mg PRN Q6HRS PRN PO MODERATE TO SEVERE PAIN Last administered on 12/26/20at 09:54; Start 12/26/20 at 09:15 Acetaminophen (Tylenol) 650 mg PRN Q4HRS PRN PO TEMP > 100.3'F Last administered on 12/28/20at 18:15; Start 12/26/20 at 20:45 Calcium Carbonate/ Glycine (Tums) 1,000 mg PRN Q3HRS PRN PO heartburn Last administered on 12/28/20at 20:17; Start 12/28/20 at 20:00 Active Scripts Active Reported Lipitor (Atorvastatin Calcium) 40 Mg Tablet 1 Tab PO QHS Vitals/I & O Vital Sign - Last 24 Hours 12/30/20 12/30/20 12/30/20 12/30/20 11:00 15:00 19:00 23:00 Temp 98.3 97.9 98.3 98.3 98.3 97.9 98.3 98.3 Pulse 73 82 78 87 Resp 18 18 18 18 B/P (MAP) 104/77 (86) 102/69 (80) 104/72 (83) 100/70 (80) Pulse Ox 97 99 96 96 O2 Delivery Room Air Room Air Room Air Room Air O2 Flow Rate 1.0 1.0 12/31/20 12/31/20 02:01 07:00 Temp 97.9 97.9 Pulse 72 Resp 20 B/P (MAP) 104/72 (83) Pulse Ox 96 O2 Delivery Room Air Room Air Justifications for Admission Other Justification YOMAIRA CASTILLO MD Dec 31, 2020 09:13
--- NOTE | 2020-12-31 10:43 | NUR ---
SW following. Discussed with RN, pt from home, room air, full liquid diet. Okay to remove drains and discharge per surgery. [facility] is still reviewing for home health, however they are not confident they will be able to accept pt. SW awaiting denial to inform pt SW was unsuccessful in finding home health for pt. Pt wanting a walker, okay with $20 walker from [facility]. RN notified, and will arrange with smokehouse operator. Pt plans to get a second opinion at to appease his family, and then plans to sign on with [facility]. SW will continue to follow. Addendum: 01/01/21 at 0815 by ASTRID FIGUEROA LATE NOTE pt does not have a PCP listed to have home health. [facility] cannot accept without a PCP. Pt seemed much better today and was fine with not having home health. He was provided a walker to discharge home with. Pt denied any further SW needs.
[2020-12-31 11:00] VITALS: BP 111/69
--- NOTE | 2020-12-31 11:04 | PDOC3 ---
Discharge Summary Visit Information Date of Admission: Dec 20, 2020 Date of Discharge: Dec 31, 2020 Final Diagnosis acute Perforated appendicitis - abscess presence unclear, will f/u renal function to obtain CT with contrast vs US. NPO, IV pain control. Zosyn q6hrs. 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 Intractable abdominal pain - due to above, continue IV Dilaudid [employer] Sepsis - due to perforated diverticulitis - given empiric IVF and zosyn ALYSIA - likely vasomotor nephropathy given poor PO intake, continue IV fluid resuscitation, creatinine seems to be at baseline since no changes have been noted although it could be compromised due to his underlying infectious process Pelvic fluid collection - between seminal vesicles and rectum, possibly abscess, will repeat labs and try CT with contrast if renal function improves Elevated PSA - noted outpatient Bilateral hip osteoarthrosis - noted on CT Hypomagnesemia - Replace IV Elevated bilirubin - will monitor Moderate protein calorie malnutrition - will start on IV nutrition Problems Medical Problems: (1) Hypomagnesemia Status: Acute (2) Perforated appendicitis Status: Acute Brief Hospital Course Allergies Allergies Coded Allergies Type Severity Reaction Last Updated Verified No Known Drug Allergies 12/05/17 No Vital Signs Vital Signs Date Time Temp Pulse Resp B/P (MAP) Pulse Ox O2 Delivery O2 Flow Rate FiO2 12/31/20 07:00 97.9 72 20 104/72 (83) 96 Room Air 97.9 12/30/20 23:00 1.0 Brief Hospital Course Ankur Rosales is a 60-year-old -[place]ames[place] male admitted with abdominal pain, right lower quadrant. CT of the abdomen pelvis - elongated masslike structure in the right lower quadrant extending into the pelvis, measuring at least 6.7 x 4.3 x 5.3 cm. At the distal aspect of the structure there is a lower density collection measuring 3.9 x 1.6 cm that may be fluid collection between a small vesicles and rectum. This was reported to be suspicious for a perforated appendix. On 12/21/2020, laparoscopic converted to open appendectomy with drainage of abscess from Dr. Bates. 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 he required iv nutrition, had 2 drains , needed iv abx Discharge Information Condition at Discharge: Improved, Stable Follow Up: Weeks Disposition/Orders: D/C to Home Scheduled Atorvastatin Calcium (Lipitor) 40 Mg Tablet, 1 TAB PO QHS for hld, #90 Ref 1 (Reported) Entered as Reported by: GIANFRANCO JIMENEZ on 12/20/20 1537 Last Action: Continued on 12/25/20 1137 by ZEYAD VENEGAS Patient Instructions Patient Instructions time > 30 min face to face f/u with primary care and oncology Justicifation of Admission Dx: Justifications for Admission: Justification of Admission Dx: Comment: (Perforated appendicitis) SANDRA KEN MD Dec 31, 2020 11:04
[2020-12-31] MEDS ORDERED: TRAM50TA PO (11:06)
[2020-12-31] MEDS ORDERED: AMOX1TAB61 PO (11:08)
--- NOTE | 2020-12-31 11:59 | NUR ---
patient refused 1200 zosyn.
--- NOTE | 2020-12-31 13:19 | PDOC ---
PROGRESS NOTES Date of Service DATE: 12/31/20 TIME: 13:12 Subjective Subjective Patient was seen on 12/29/2020 and 12/30/2020. Note was not entered due to lack of access to [facility] during [facility] downtime. We previously discussed evaluation of patient's newly diagnosed Burkitt lymphoma Follow-up on 12/31/2020: Patient reports improving abdominal pain. I once again discussed the urgency of completing staging evaluation of his newly diagnosed lymphoma initiating chemotherapy. He would like to be discharged first and then be seen in the office to initiate further evaluation and management. He denies fever or chills or night sweats. He believes he will likely be discharged later today or tomorrow. 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 He does not want to initiate work-up while inpatient and wants to be seen in the office. We will arrange outpatient follow-up later this week or early next week per patient's preference -Recommend port placement given anticipated need for chemotherapy -While he technically does not qualify for high risk disease due to positive margins, his disease has been optimally debulked and LDH is low. Would therefore treat as low risk Burkitt lymphoma with 6 cycles of dose adjusted R- EPOCH -Would plan on beginning systemic therapy as outpatient MARLO -Tested negative for HIV and hepatitis B and C -Check echocardiogram to evaluate cardiac function -FISH results are pending. We will follow-up -Discussed potential options for initiating therapy including second opinion at a tertiary Medical Center -Continue postoperative care -Rest per primary service Jef Bowman MD Medical Oncology/Hematology Comment Review of Relevant I have reviewed the following items demetra (where applicable) has been applied. Labs Microbiology 12/20/20 Blood Culture - Final, Complete NO GROWTH AFTER 5 DAYS Medications Current Medications Sodium Chloride 1,000 ml @ 1,000 mls/hr 1X ONCE IV Last administered on 12/20/20at 11:08; Start 12/20/20 at 11:15; Stop 12/20/20 at 12:14; Status DC Fentanyl Citrate (Fentanyl 2ml Vial) 50 mcg 1X ONCE IVP Last administered on 12/20/20at 12:31; Start 12/20/20 at 12:00; Stop 12/20/20 at 12:01; Status DC Piperacillin Sod/ Tazobactam Sod 3.375 gm/Sodium Chloride 50 ml @ 100 mls/hr 1X ONCE IV Last administered on 12/20/20at 12:15; Start 12/20/20 at 12:00; Stop 12/20/20 at 12:29; Status DC Magnesium Sulfate 50 ml @ 25 mls/hr 1X ONCE IV Last administered on 12/20/20at 12:16; Start 12/20/20 at 12:00; Stop 12/20/20 at 13:59; Status DC Sodium Chloride 1,000 ml @ 1,000 mls/hr 1X ONCE IV Last administered on 12/20/20at 13:16; Start 12/20/20 at 13:15; Stop 12/20/20 at 14:14; Status DC Fentanyl Citrate (Fentanyl 2ml Vial) 75 mcg 1X ONCE IVP Last administered on 12/20/20at 13:26; Start 12/20/20 at 13:45; Stop 12/20/20 at 13:46; Status DC Ondansetron HCl (Zofran) 4 mg PRN Q8HRS PRN IV NAUSEA/VOMITING; Start 12/20/20 at 13:15; Stop 12/20/20 at 13:46; Status DC Fentanyl Citrate (Fentanyl 2ml Vial) 50 mcg PRN Q1HR PRN IV PAIN; Start 12/20/20 at 13:15; Stop 12/21/20 at 13:14; Status DC Sodium Chloride 1,000 ml @ 100 mls/hr Q10H IV Last administered on 12/21/20at 11:05; Start 12/20/20 at 13:15; Stop 12/21/20 at 13:14; Status DC Sodium Chloride 1,000 ml @ 1,000 mls/hr 1X ONCE IV Last administered on 12/20/20at 13:30; Start 12/20/20 at 13:30; Stop 12/20/20 at 14:29; Status DC Piperacillin Sod/ Tazobactam Sod (Zosyn Per Pharmacy) 1 each PRN DAILY PRN MC SEE COMMENTS; Start 12/20/20 at 13:45 Ondansetron HCl (Zofran) 4 mg PRN Q4HRS PRN IV NAUSEA/VOMITING Last administered on 12/23/20at 05:17; Start 12/20/20 at 13:45 Acetaminophen (Tylenol Supp) 650 mg PRN Q4HRS PRN ID TEMP OVER 100.4F OR MILD PAIN Last administered on 12/21/20at 02:20; Start 12/20/20 at 13:45 Olanzapine (ZyPREXA ZYDIS) 5 mg PRN BID PRN PO ANXIETY / AGITATION; Start 12/20/20 at 13:45 Bisacodyl (Dulcolax Supp) 10 mg PRN DAILY PRN ID CONSTIPATION; Start 12/20/20 at 13:45 Heparin Sodium (Porcine) (Heparin Sodium) 5,000 unit BID ONCE SQ Last administered on 12/20/20at 20:08; Start 12/20/20 at 21:00; Stop 12/20/20 at 21:01; Status DC Morphine Sulfate (Morphine Sulfate) 4 mg PRN Q3HRS PRN IV SEVERE PAIN 7-10 Last administered on 12/21/20at 14:34; Start 12/20/20 at 13:45 Piperacillin Sod/ Tazobactam Sod 3.375 gm/Sodium Chloride 50 ml @ 100 mls/hr Q6HRS IV Last administered on 12/30/20at 00:10; Start 12/20/20 at 18:00 Amino Acids/ Glycerin/ Electrolytes 1,000 ml @ 80 mls/hr [id number] IV Last administered on 12/29/20at 17:57; Start 12/20/20 at 15:00 Potassium Chloride (Klor-Con) 40 meq 1X ONCE PO ; Start 12/21/20 at 10:00; Stop 12/21/20 at 10:01; Status DC Magnesium Sulfate/ Dextrose 100 ml @ 100 mls/hr 1X ONCE IV ; Start 12/21/20 at 10:00; Stop 12/21/20 at 10:59; Status DC Fentanyl Citrate (Fentanyl 2ml Vial) 25 mcg PRN Q5MIN PRN IVP MILD PAIN 1-3; Start 12/21/20 at 10:15; Stop 12/22/20 at 10:14; Status DC Fentanyl Citrate (Fentanyl 2ml Vial) 50 mcg PRN Q5MIN PRN IVP MODERATE PAIN 4- 6; Start 12/21/20 at 10:15; Stop 12/22/20 at 10:14; Status DC Morphine Sulfate (Morphine Sulfate) 1 mg PRN Q10MIN PRN IVP SEVERE PAIN 7-10; Start 12/21/20 at 10:15; Stop 12/22/20 at 10:14; Status DC Ringer's Solution 1,000 ml @ 30 mls/hr Q24H IV Last administered on 12/21/20at 14:23; Start 12/21/20 at 10:15; Stop 12/21/20 at 22:14; Status DC Hydromorphone HCl (Dilaudid) 0.5 mg PRN Q10MIN PRN IVP SEVERE PAIN 7-10, 2nd CHOICE; Start 12/21/20 at 10:15; Stop 12/22/20 at 10:14; Status DC Prochlorperazine Edisylate (Compazine) 5 mg PACU PRN PRN IVP NAUSEA, MRX1 Last administered on 12/21/20at 14:34; Start 12/21/20 at 10:15; Stop 12/22/20 at 10:14; Status DC Potassium Chloride/Water 100 ml @ 100 mls/hr Q1H IV Last administered on 12/21/20at 18:05; Start 12/21/20 at 12:00; Stop 12/21/20 at 15:59; Status DC Sevoflurane (Ultane) 90 ml STK-MED ONCE IH ; Start 12/21/20 at 10:52; Stop 12/21/20 at 10:52; Status DC Succinylcholine Chloride (Anectine) 200 mg STK-MED ONCE .ROUTE ; Start 12/21/20 at 10:52; Stop 12/21/20 at 10:52; Status DC Neostigmine Hunker (Neostigmine Methylsulfate) 5 mg STK-MED ONCE .ROUTE ; Start 12/21/20 at 10:52; Stop 12/21/20 at 10:52; Status DC Rocuronium Hunker (Zemuron) 50 mg STK-MED ONCE .ROUTE ; Start 12/21/20 at 10:52; Stop 12/21/20 at 10:52; Status DC Fentanyl Citrate (Fentanyl 2ml Vial) 100 mcg STK-MED ONCE .ROUTE ; Start 12/21/20 at 10:52; Stop 12/21/20 at 10:53; Status DC Midazolam HCl (Versed) 2 mg STK-MED ONCE .ROUTE ; Start 12/21/20 at 10:53; Stop 12/21/20 at 10:53; Status DC Glycopyrrolate (Robinul) 1 mg STK-MED ONCE .ROUTE ; Start 12/21/20 at 10:53; Stop 12/21/20 at 10:53; Status DC Propofol (Diprivan) 200 mg STK-MED ONCE IV ; Start 12/21/20 at 10:53; Stop 12/21/20 at 10:53; Status DC Dexamethasone Sodium Phosphate (Decadron) 4 mg STK-MED ONCE .ROUTE ; Start 12/21/20 at 10:53; Stop 12/21/20 at 10:53; Status DC Ondansetron HCl (Zofran) 4 mg STK-MED ONCE .ROUTE ; Start 12/21/20 at 10:53; Stop 12/21/20 at 10:53; Status DC Lidocaine HCl (Lidocaine Pf 2% Vial) 5 ml STK-MED ONCE .ROUTE ; Start 12/21/20 at 10:53; Stop 12/21/20 at 10:53; Status DC Sodium Chloride 1,000 ml @ 1,000 mls/hr 1X ONCE IV Last administered on 12/21/20at 11:09; Start 12/21/20 at 11:00; Stop 12/21/20 at 11:59; Status DC Bupivacaine HCl/ Epinephrine Bitart (Sensorcain-Epi 0.5% Kit) 30 ml STK-MED ONCE .ROUTE ; Start 12/21/20 at 11:10; Stop 12/21/20 at 11:11; Status DC Sterile Water 10 ml @ As Directed STK-MED ONCE IJ ; Start 12/21/20 at 11:43; Stop 12/21/20 at 11:43; Status DC Ephedrine Sulfate (ePHEDrine PF IN SALINE SYRINGE) 50 mg STK-MED ONCE IV ; Start 12/21/20 at 12:25; Stop 12/21/20 at 12:25; Status DC Phenylephrine HCl (PHENYLEPHRINE in 0.9% NACL PF) 1 mg STK-MED ONCE IV ; Start 12/21/20 at 12:32; Stop 12/21/20 at 12:32; Status DC Fentanyl Citrate (Fentanyl 2ml Vial) 100 mcg STK-MED ONCE .ROUTE ; Start 12/21/20 at 12:49; Stop 12/21/20 at 12:50; Status DC Rocuronium Hunker (Zemuron) 50 mg STK-MED ONCE .ROUTE ; Start 12/21/20 at 12:51; Stop 12/21/20 at 12:51; Status DC Naloxone HCl (Narcan) 0.4 mg PRN Q2MIN PRN IV SEE INSTRUCTIONS; Start 12/21/20 at 14:00 Sodium Chloride 1,000 ml @ 25 mls/hr Q24H IV Last administered on 12/24/20at 23:15; Start 12/21/20 at 14:00; Stop 12/25/20 at 20:08; Status DC Hydromorphone HCl 30 ml @ 0 mls/hr CONT PRN PRN IV PER PROTOCOL Last administered on 12/21/20at 14:52; Start 12/21/20 at 14:00; Stop 12/25/20 at 08:52; Status DC Prochlorperazine Edisylate (Compazine) 10 mg STK-MED ONCE .ROUTE ; Start 12/21/20 at 14:17; Stop 12/21/20 at 14:17; Status DC Enoxaparin Sodium (Lovenox 40mg Syringe) 40 mg Q24H SQ Last administered on 12/30/20at 10:00; Start 12/23/20 at 10:00 Hydromorphone HCl (Dilaudid) 0.4 mg PRN Q4HRS PRN IVP MODERATE PAIN Last administered on 12/26/20at 06:39; Start 12/25/20 at 09:00 Oxycodone/ Acetaminophen (Percocet 5/325) 1 tab PRN Q4HRS PRN PO PAIN Last administered on 12/26/20at 01:28; Start 12/25/20 at 09:00; Stop 12/26/20 at 09:04; Status DC Atorvastatin Calcium (Lipitor) 40 mg QHS PO Last administered on 12/29/20at 21:30; Start 12/25/20 at 21:00 Tramadol HCl (Ultram) 50 mg PRN Q6HRS PRN PO MODERATE TO SEVERE PAIN Last administered on 12/26/20at 09:54; Start 12/26/20 at 09:15 Acetaminophen (Tylenol) 650 mg PRN Q4HRS PRN PO TEMP > 100.3'F Last administered on 12/28/20at 18:15; Start 12/26/20 at 20:45 Calcium Carbonate/ Glycine (Tums) 1,000 mg PRN Q3HRS PRN PO heartburn Last administered on 12/28/20at 20:17; Start 12/28/20 at 20:00 Active Scripts Active Augmentin 875-125 Tablet (Amoxicillin/Potassium Clav) 1 Each Tablet 1 Tab PO BID 5 Days Tramadol Hcl 50 Mg Tablet 50 Mg PO PRN Q6HRS PRN Reported Lipitor (Atorvastatin Calcium) 40 Mg Tablet 1 Tab PO QHS Vitals/I & O Vital Sign - Last 24 Hours 12/30/20 12/30/20 12/30/20 12/31/20 15:00 19:00 23:00 02:01 Temp 97.9 98.3 98.3 97.9 98.3 98.3 Pulse 82 78 87 Resp 18 18 18 B/P (MAP) 102/69 (80) 104/72 (83) 100/70 (80) Pulse Ox 99 96 96 O2 Delivery Room Air Room Air Room Air Room Air O2 Flow Rate 1.0 1.0 12/31/20 12/31/20 07:00 11:00 Temp 97.9 98.2 97.9 98.2 Pulse 72 81 Resp 20 20 B/P (MAP) 104/72 (83) 111/69 (83) Pulse Ox 96 98 O2 Delivery Room Air Justifications for Admission Other Justification ROSE BOWMAN MD Dec 31, 2020 13:19
--- NOTE | 2020-12-31 14:45 | NUR ---
ROSETTA drain removed. pt tolerated well. window gauze placed over site. IV removed, cath intact. pt purchased walker from hospital. pt stable upon DC. friend here to provide transportation
== END 2020-12-31 14:46 | disposition home or self-care (01) | DRG 853 ==
LOC: ER 10:33 → 5 NORTH 13:15
PROVIDERS: ADMIT Internal Medicine; ATTEND Internal Medicine
PROC: 0WJG4ZZ Inspection of Peritoneal Cavity, Percutaneous Endoscopic Approach (ICD-10-PCS; 2020-12-21)
PROC: 0DTJ0ZZ Resection of Appendix, Open Approach (ICD-10-PCS; principal; 2020-12-21 11:30)
DX: A41.9 Sepsis, unspecified organism (principal); K35.32 Acute appendicitis with perforation, localized peritonitis, and gangrene, without abscess; N17.0 Acute kidney failure with tubular necrosis; E44.0 Moderate protein-calorie malnutrition; K57.80 Diverticulitis of intestine, part unspecified, with perforation and abscess without bleeding; R17 Unspecified jaundice; C83.70 Burkitt lymphoma, unspecified site; C85.10 Unspecified B-cell lymphoma, unspecified site; E83.42 Hypomagnesemia; Z53.31 Laparoscopic surgical procedure converted to open procedure; R97.20 Elevated prostate specific antigen [PSA]; M16.10 Unilateral primary osteoarthritis, unspecified hip; D64.9 Anemia, unspecified; E78.5 Hyperlipidemia, unspecified; E78.00 Pure hypercholesterolemia, unspecified; Z20.822 Contact with and (suspected) exposure to COVID-19; Z68.30 Body mass index [BMI] 30.0-30.9, adult
CPT/HCPCS: 36415; 74176; 80048; 80053; 81001; 83605; 83615; 83690; 83735; 85007; 85025; 86703; 86704; 86706; 86803; 87040; 87340; 87426; 88304; 88341; 88342; 88360; 96361; 96365; 96368; 96375; 96376; J0330; J0780; J1100; J1170; J1644; J1650; J2250; J2270; J2370; J2405; J2543; J2704; J2710; J3010; J3475; J3480; J3490; J7030; J7120; U0003; 97110-GP; 97530-GO; 97530-GP; 97535-GO; 99285-25; G0378